=== PATIENT | male | born 1960 | race Two or more races ===

== ENCOUNTER 2024-09-17 07:59 | Emergency (ER) | payer MEDICAID, SELFPAY ==
[2024-09-17 08:00] VITALS: BP 148/83; PULSE 77; RESP 19; TEMP 36.4; O2SAT 99
--- NOTE | 2024-09-17 08:36 | EDNOTE_ITS ---
ED Seizures RME/HPI General Chief Complaint: Seizure Stated Complaint: SEIZURE Time Seen by Provider: 09/17/24 08:03 Arrival date/time: 09/17/24 07:59 Limitations: no limitations RME / HPI RME / HPI Narrative: 64 year old male with history of noncompliance with keppra, seizures presents to the ED BIBA for evaluation of seizure. Per medics, when they arrived on scene patient was postictal and confused. On arrival to ED patient has no complaints. Denies fevers, chills, chest pain, cough, shortness of breath, abdominal pain, n/v/d, or urinary symptoms. Related Data Previous Rx's ?Medication ?Instructions ?Recorded levetiracetam 500 mg tablet 500 mg PO BID #30 tabs 10/20/22 (Keppra) levetiracetam 500 mg tablet 500 mg PO BID #60 tabs 02/25/23 (Keppra) levetiracetam 500 mg tablet 500 mg PO BID #30 tabs 08/17/23 (Keppra) levetiracetam 500 mg tablet 500 mg PO BID #30 tabs 12/28/23 (Keppra) levetiracetam 500 mg tablet 500 mg PO TID #90 tabs 02/29/24 levetiracetam 500 mg tablet 500 mg PO BID #60 tabs 03/22/24 (Keppra) levetiracetam 500 mg tablet 500 mg PO BID #30 tabs 07/04/24 (Keppra) levetiracetam 500 mg tablet 500 mg PO BID #20 tabs 07/11/24 (Keppra) ibuprofen 600 mg tablet 600 mg PO Q6H PRN pain #30 tabs 07/19/24 levetiracetam 500 mg tablet 500 mg PO BID #60 tabs 09/17/24 (Keppra) Allergies Allergy/AdvReac Type Severity Reaction Status Date / Time No Known Allergies Allergy Verified 05/23/24 14:10 Review of Systems Review of Systems Systems Reviewed: All systems reviewed, normal except as documented Past Medical History Past Medical History NEUROLOGIC: Positive Neurological Disorders and Seizures CARDIAC: Positive Hypertension Family History FAMILY HISTORY: Positive Family Cardiac Disorders Surgical History SURGICAL: Positive Abdominal Surgery Social History SMOKING STATUS: Light (< 1 pack/day) SECOND HAND EXPOSURE: No SUBSTANCE USE: marijuana and methamphetamine (last used a couple of days ago ) ED Exam General Limitations: Present no limitations General appearance: Present alert and in no apparent distress Head Head exam: Present atraumatic, normocephalic and normal inspection Eye Eye exam: Present normal appearance, PERRL and EOMI ENT ENT exam: Present normal exam, normal oropharynx and mucous membranes moist Neck Neck exam: Present normal inspection, full ROM and trachea midline Chest Chest inspection: Present normal inspection and symmetric chest wall rise Respiratory Respiratory exam: Present normal lung sounds bilaterally Cardiovascular Cardiovascular exam: Present regular rate, normal rhythm and normal heart sounds Abdominal Exam Abdominal exam: Present soft and normal bowel sounds Extremities Exam Extremities exam: Present normal inspection and full ROM Back Exam Back exam: Present normal inspection and full ROM Neurological Exam Neurological exam: Present alert, oriented X3 and CN II-XII intact Psychiatric Psychiatric exam: Present normal affect and normal mood Skin Skin exam: Present warm, dry, intact and normal color Course Quality Measures none Orders Category Date Time Status Insert IV NOW Care 09/17/24 08:05 Active CBC Stat Lab 09/17/24 09:22 Completed CMP [Comprehensive Metabolic Panel] Stat Lab 09/17/24 09:22 Results Drug Screen,Urine Stat Lab 09/17/24 10:34 Completed levETIRAcetam INJ [Keppra Inj] Med 09/17/24 08:05 Discontinued 1,000 mg IVP X1 ONE Reevaluation(s) Reevaluation #1: Patient remains clinically stable throughout the emergency department visit. We reviewed all the results, analysis, and treatment plans. Patient is amenable to discharge. Strict return precautions were outlined. Patient was discharged in stable condition. Time: 11:25 Vital Signs Vital signs: Vital Signs Temperature 97.5 F 09/17/24 08:00 Pulse Rate 77 09/17/24 08:00 Respiratory Rate 19 09/17/24 08:00 Blood Pressure 148/83 H 09/17/24 08:00 Pulse Oximetry (%) 99 09/17/24 08:00 Oxygen Delivery Method Room Air 09/17/24 08:00 Pulse ox is 99% on room air which is adequate. Seizure MDM Narrative MDM Narrative:: Sirisha Cheek am scribing for and in the presence of Dr. Serrano. Patient data External records reviewed:: [facility] previous records (I reviewed ED visit on 07/19/2024) and EMS form Clinical information provided by:: patient and EMS Social determinants that could affect healthcare access:: housing (Homeless, meth use ) Patient has the following chronic illnesses:: Seizures, noncompliance with medications How is presenting disease/condition affected by chronic disease/condition?: exacerbated by Evaluation data The following diagnostics were reviewed and interpreted by me:: lab results Lab and/or radiology exams considered but not ordered:: None Interpretation Summary: Chronic transaminitis, AST/ALT 158/109 Medications / Prescriptions Medications or Prescriptions considered but not ordered:: None Medication administrations:: Medication Administration History Discontinued Medications Levetiracetam (Levetiracetam Inj 100 Mg/Ml Vial 5ml) 1,000 mg IVP X1 ONE Stop: 09/17/24 08:06 Last Admin: 09/17/24 08:56 Dose: 1,000 mg Documented By: See above Consultations Consultation(s) initiated? (list below): No Diagnosis Seizure Differential Diagnosis: intractable seizure disorder, focal seizure, generalized seizure and epileptic seizure Most likely diagnosis given after review of the tests above:: Seizure Admission Indicated Admission indicated?: not indicated Admission Request Was there a request for admission?: No Disposition Plan Disposition Plan: Discharge Discharge Attestation Discharge Attestation: The patient and all family members were given an opportunity to ask questions and understood the discharge instructions. Discharge instructions specifically effects, indications for sooner follow up or return to the emergency department, and the expected course of current diagnosis. Patient condition: Stable Discharge Plan Plan Patient Disposition: HOME (Self Care) Patient condition on transfer: Stable Prescriptions/Referrals Prescriptions/Med Rec: New levetiracetam [Keppra] 500 mg tablet 500 mg PO BID Qty: 60 0RF No Action levetiracetam [Keppra] 500 mg tablet 500 mg PO BID Qty: 30 0RF levetiracetam [Keppra] 500 mg tablet 500 mg PO BID Qty: 30 0RF levetiracetam [Keppra] 500 mg tablet 500 mg PO BID Qty: 60 0RF levetiracetam [Keppra] 500 mg tablet 500 mg PO BID Qty: 20 0RF ibuprofen 600 mg tablet 600 mg PO Q6H PRN (Reason: pain) Qty: 30 0RF levetiracetam [Keppra] 500 mg tablet 500 mg PO BID Qty: 30 0RF levetiracetam [Keppra] 500 mg tablet 500 mg PO BID Qty: 60 0RF levetiracetam 500 mg tablet 500 mg PO TID Qty: 90 0RF levetiracetam [Keppra] 500 mg tablet 500 mg PO BID Qty: 30 0RF Problem List Clinical Impression: Seizure Patient/Caregiver Discharge Instructions Print Language: Turkish Stand Alone Forms: Linda Award Info., Patient Portal Info Letter
[2024-09-17 08:48] VITALS: PULSE 74; RESP 14; O2SAT 96; BMI 19.3
[2024-09-17] MEDS: levETIRAcetam INJ 100 MG/ML VIAL 5ML 1000 MG IVP (08:56)
[2024-09-17 09:39] LABS: Basophils % (Auto) 1 % (0-2.5); Eosinophils % (Auto) 1 % (0-10); Hematocrit 38.7 % (41.0-53.0); Hemoglobin 13.4 g/dL (13.5-16.0); Immature Granulocytes % (Auto) 0 % (0-0); Immature Granulocytes Auto 0.02 Thou/mm3 (0.00-0.00); Lymphocytes # (Auto) 0.9 Thou/mm3 (1.0-4.8); Lymphocytes % (Auto) 19 % (10-50); Mean Corpuscular HGB Conc 34.6 g/dl (31.0-37.0); Mean Corpuscular Hemoglobin 33.7 pg (25.0-35.0); Mean Corpuscular Volume 97 fL (80-100); Monocytes # (Auto) 0.5 Thou/mm3 (0.0-0.8); Monocytes % (Auto) 10 % (0-12); Neutrophils # (Auto) 3.5 Thou/mm3 (1.8-7.7); Neutrophils % (Auto) 70 % (37-80); Nucleated Red Blood Cell % 0 /100 WBC (0); Platelet Count 162 Thou/mm3 (140-440); RDW Standard Deviation 45.6 fL (35.1-43.9); Red Blood Count 3.98 Miln/mm3 (4.50-5.90)
[2024-09-17 10:16] LABS: Alanine Aminotransferase 109 U/L (10-49); Albumin, Serum 3.6 gm/dL (3.4-4.8); Albumin/Globulin Ratio 0.9 (1.2-2.2); Alkaline Phosphatase 190 U/L (46-116); Anion Gap 4 (7-16); Aspartate Amino Transferase 158 U/L (0-34); BUN/Creatinine Ratio 25 Ratio (12-20); Blood Urea Nitrogen 15 mg/dL (9-23); Calcium 8.9 mg/dL (8.3-10.6); Calcium (Corrected) 9.2 mg/dL (8.5-10.1); Chloride 105 mMol/L (98-107); Creatinine (Component) 0.6 mg/dL (0.6-1.3); Estimated Creatinine Clearance 100.7 mL/min (>60); Globulin 4.1 gm/dL (2.3-3.5); Glucose 95 mg/dL (74-106); Osmolality,Calculated 272 (275-295); Potassium 3.9 mMol/L (3.4-5.1); Sodium 136 mMol/L (136-145); Total Protein 7.7 gm/dL (5.7-8.2); eGFR > 60 See Note
[2024-09-17 10:31] VITALS: BP 149/85; PULSE 60; RESP 17; TEMP 36.6; O2SAT 99
[2024-09-17 11:10] LABS: Amphetamine/Methamp Scrn,U Positive (Negative); Barbiturate Screen,Urine Negative (Negative); Benzodiazepines Screen,Urine Negative (Negative); THC Screen,Urine Positive (Negative)
[2024-09-17 11:11] LABS: Benzoylecgonine Screen, Ur Negative (Negative); Fentanyl Screen,Urine Negative (Negative); Opiate Screen,Urine Negative (Negative)
[2024-09-17 11:46] VITALS: BP 140/81; PULSE 69; RESP 14; TEMP 37; O2SAT 99
[2024-09-17 14:51] LABS: Bilirubin,Total 0.9 mg/dL (0.3-1.2)
== END 2024-09-17 11:56 | disposition home or self-care (01) ==
PROVIDERS: Emergency Provider Emergency Medicine
DX: R56.9 Unspecified convulsions (principal)
CPT/HCPCS: 36415; 80053; 80307; 85025; 96374; 99284; J1953

== ENCOUNTER 2024-09-22 15:00 | Emergency (ER) | payer MEDICAID, SELFPAY ==
--- NOTE | 2024-09-22 15:18 | PD.EDSEIZ ---
ED Seizures RME/HPI General Chief Complaint: Seizure Stated Complaint: SEIZURES Time Seen by Provider: 09/22/24 15:16 Arrival date/time: 09/22/24 15:00 This is a 64 year old male with history of seizures had a seizure prior to arrival. Patient was brought in by ambulance and on their arrival patient was postictal. Patient has a history of noncompliance with keppra. Per medics, when they arrived on scene patient was postictal and confused. On arrival to ED patient has no complaints. Denies fevers, chills, chest pain, cough, shortness of breath, abdominal pain, n/v/d, or urinary symptoms. Related Data Previous Rx's ?Medication ?Instructions ?Recorded levetiracetam 500 mg tablet 500 mg PO BID #30 tabs 10/20/22 (Keppra) levetiracetam 500 mg tablet 500 mg PO BID #60 tabs 02/25/23 (Keppra) levetiracetam 500 mg tablet 500 mg PO BID #30 tabs 08/17/23 (Keppra) levetiracetam 500 mg tablet 500 mg PO BID #30 tabs 12/28/23 (Keppra) levetiracetam 500 mg tablet 500 mg PO TID #90 tabs 02/29/24 levetiracetam 500 mg tablet 500 mg PO BID #60 tabs 03/22/24 (Keppra) levetiracetam 500 mg tablet 500 mg PO BID #30 tabs 07/04/24 (Keppra) levetiracetam 500 mg tablet 500 mg PO BID #20 tabs 07/11/24 (Keppra) ibuprofen 600 mg tablet 600 mg PO Q6H PRN pain #30 tabs 07/19/24 levetiracetam 500 mg tablet 500 mg PO BID #60 tabs 09/17/24 (Keppra) levetiracetam 500 mg tablet 500 mg PO BID #20 tabs 09/29/24 (Keppra) Allergies Allergy/AdvReac Type Severity Reaction Status Date / Time No Known Allergies Allergy Verified 05/23/24 14:10 Review of Systems Review of Systems Systems Reviewed: All systems reviewed, normal except as documented Past Medical History Past Medical History NEUROLOGIC: Positive Neurological Disorders and Seizures CARDIAC: Positive Hypertension; Negative Cardiac Disorders or Congestive Heart Failure RESPIRATORY: Negative Chronic Obstructive Pulmonary Disease (COPD) or Asthma GASTROINTESTINAL: Negative Gastrointestinal Disorders or Gastroesophageal Reflux Disease GENITOURINARY: Negative Genitourinary Disorders or Renal Disease MUSCULOSKELETAL: Negative Musculoskeletal Disorders ENDOCRINE: Negative Endocrine Disorders, Diabetes Mellitus Type 1 or Diabetes Mellitus Type 2 HEMATOLOGIC: Negative Blood Disorders PSYCHO/SOCIAL: Positive Recreational Drug Use; Negative Depression or Anxiety OTHER HISTORY: Negative Autoimmune Disease or Clostridium Difficile Family History FAMILY HISTORY: Positive Family Cardiac Disorders; Negative Family Psychiatric Problems, Family Respiratory Disorders, Family Gastrointestinal Problems, Family Cancer, Family Surgery or Family Anesthesia Reaction Surgical History SURGICAL: Positive Abdominal Surgery; Negative Cardiac Surgery, Endocrine Surgery, Ear Surgery, Nephrectomy, Neurologic Surgery or Mastectomy Social History SMOKING STATUS: Former smoker SECOND HAND EXPOSURE: No SUBSTANCE USE: marijuana and methamphetamine (last used a couple of days ago ) ED Exam General General appearance: Present alert and in no apparent distress Head Head exam: Present atraumatic Eye Eye exam: Present normal appearance, PERRL and EOMI ENT ENT exam: Present normal exam, normal oropharynx and mucous membranes moist Neck Neck exam: Present normal inspection, full ROM and trachea midline Chest Chest inspection: Present normal inspection and symmetric chest wall rise Respiratory Respiratory exam: Present normal lung sounds bilaterally Cardiovascular Cardiovascular exam: Present regular rate, normal rhythm and normal heart sounds Abdominal Exam Abdominal exam: Present soft Extremities Exam Extremities exam: Present normal inspection and full ROM Back Exam Back exam: Present normal inspection and full ROM Neurological Exam Neurological exam: Present alert and oriented X3 Psychiatric Psychiatric exam: Present normal affect and normal mood Skin Skin exam: Present warm, dry, intact and normal color Course Quality Measures none Orders Category Date Time Status CT head/brain wo con Stat Exams 09/22/24 15:21 Completed XR chest 1V Stat Exams 09/22/24 15:20 Completed CBC Stat Lab 09/22/24 15:29 Completed Comprehensive Metabolic Panel Stat Lab 09/22/24 15:29 Completed Drug Screen,Urine Stat Lab 09/22/24 17:18 Completed Urinalysis, C/S if Indicated Stat Lab 09/22/24 17:18 Completed levETIRAcetam INJ [Keppra Inj] Med 09/22/24 17:05 Discontinued 1,000 mg IVP X1 ONE Vital Signs Vital signs: Vital Signs Temperature 98.9 F 09/22/24 16:17 Pulse Rate 79 11/27/24 16:17 Respiratory Rate 18 09/22/24 16:17 Blood Pressure 139/69 H 09/22/24 16:17 Seizure MDM Narrative MDM Narrative:: This is a 64 year old male with history of seizures had a seizure prior to arrival. Patient was brought in by ambulance and on their arrival patient was postictal. Patient has a history of noncompliance with keppra. Per medics, when they arrived on scene patient was postictal and confused. On arrival to ED patient has no complaints. Denies fevers, chills, chest pain, cough, shortness of breath, abdominal pain, n/v/d, or urinary symptoms. Chest x ray: FINDINGS: Normal heart size No aspiration pneumonia Prominent osteopenia IMPRESSION: Negative for aspiration pneumonia Mild bronchitis pattern CT head: Findings: No significant ventricular enlargement. Intra-axial or extra-axial hemorrhage density is not seen. No mass effect or midline shift Basal cisterns are not remarkable. Fourth ventricle is midline. Cranial vault intact. Impression: Negative for acute hemorrhage, mass effect or midline shift Consider brain MRI follow-up, pre and postcontrast, seizure protocol CBC unremarkable, bmp unremarkable but lfts elevated but seem to be always elevated. Pt positive for amphetamines and marijuana Patient eating sandwich and feels comfortable being dc. Pt ambulated out of ED, steady gate. Gcs 15 Patient data External records reviewed:: [facility] previous records Clinical information provided by:: patient Social determinants that could affect healthcare access:: substance use Patient has the following chronic illnesses:: substance abuse How is presenting disease/condition affected by chronic disease/condition?: exacerbated by Evaluation data The following diagnostics were reviewed and interpreted by me:: lab results and radiology exam(s) Lab and/or radiology exams considered but not ordered:: none Interpretation Summary: see note Medications / Prescriptions Medications or Prescriptions considered but not ordered:: none Medication administrations:: Medication Administration History Discontinued Medications Levetiracetam (Levetiracetam Inj 100 Mg/Ml Vial 5ml) 1,000 mg IVP X1 ONE Stop: 09/22/24 17:06 Last Admin: 09/22/24 17:56 Dose: 1,000 mg Documented By: ARF see mar Consultations Consultation(s) initiated? (list below): No Diagnosis Seizure Differential Diagnosis: intractable seizure disorder, focal seizure and other (pneumonia, drug induced seizure, uti) Most likely diagnosis given after review of the tests above:: methanphetamine use Admission Indicated Admission indicated?: not indicated Admission Request Was there a request for admission?: No Disposition Plan Disposition Plan: Discharge Discharge Attestation Discharge Attestation: The patient and all family members were given an opportunity to ask questions and understood the discharge instructions. Discharge instructions specifically effects, indications for sooner follow up or return to the emergency department, and the expected course of current diagnosis. Patient condition: Stable Discharge Plan Plan Patient Disposition: HOME (Self Care) Patient condition on transfer: Stable Prescriptions/Referrals Prescriptions/Med Rec: No Action levetiracetam [Keppra] 500 mg tablet 500 mg PO BID Qty: 30 0RF levetiracetam [Keppra] 500 mg tablet 500 mg PO BID Qty: 30 0RF levetiracetam [Keppra] 500 mg tablet 500 mg PO BID Qty: 60 0RF levetiracetam [Keppra] 500 mg tablet 500 mg PO BID Qty: 20 0RF ibuprofen 600 mg tablet 600 mg PO Q6H PRN (Reason: pain) Qty: 30 0RF levetiracetam [Keppra] 500 mg tablet 500 mg PO BID Qty: 20 0RF levetiracetam [Keppra] 500 mg tablet 500 mg PO BID Qty: 30 0RF levetiracetam [Keppra] 500 mg tablet 500 mg PO BID Qty: 60 0RF levetiracetam 500 mg tablet 500 mg PO TID Qty: 90 0RF levetiracetam [Keppra] 500 mg tablet 500 mg PO BID Qty: 30 0RF levetiracetam [Keppra] 500 mg tablet 500 mg PO BID Qty: 60 0RF Referrals: No Primary/Family,Physician [Primary Care Provider] - In 1 week Problem List Clinical Impression: Seizure, Elevated liver enzymes, Amphetamine use Patient/Caregiver Discharge Instructions Discharge Activity: activity as tolerated Education Materials: Understanding Methamphetamine ..., ED Seizure, Recurrent (Adult) Additional Instructions: Please pick remover your seizure medications at the pharmacy. Come back to the emergency room if symptoms change or worsen. Follow-up with primary provider in 1-2 days Print Language: Albanian Stand Alone Forms: Linda Award Info., Patient Portal Info Letter PA/MEDICAL LANGUAGE SPECIALIST Supervising Physician PA/MEDICAL LANGUAGE SPECIALIST Supervising Physician: glenn
--- NOTE | 2024-09-22 15:20 | XR_ITS ---
Examination: AP chest single view Technique one AP portable upright chest single view Exam date and time: September 22, 2024 1536 hours Comparison 07/19/2024 INDICATIONS: Seizure today FINDINGS: Normal heart size No aspiration pneumonia Prominent osteopenia IMPRESSION: Negative for aspiration pneumonia Mild bronchitis pattern
--- NOTE | 2024-09-22 15:21 | XR_ITS ---
Examination: CT brain head without contrast. 2-D sagittal coronal reconstructions Date and time of exam:September 22, 2024 1543 hours INDICATIONS: Seizures today COMPARISON: May 23, 2024 CTDI: vol (mGy):45.3 DLP: (mGycm):929 Technique: Multiple CT axial sections of the brain have been obtained, 5 mm slice thickness. Contrast has not been administered. 2-D sagittal, coronal reconstructions have been obtained Low dose protocols were performed. One or more of the following dose reduction techniques were used; automated exposure control, adjustment of the mA and/or KV according to patient size, use of iterative reconstruction technique. Findings: No significant ventricular enlargement. Intra-axial or extra-axial hemorrhage density is not seen. No mass effect or midline shift Basal cisterns are not remarkable. Fourth ventricle is midline. Cranial vault intact. Impression: Negative for acute hemorrhage, mass effect or midline shift Consider brain MRI follow-up, pre and postcontrast, seizure protocol
[2024-09-22 16:16] LABS: Basophils % (Auto) 1 % (0-2.5); Eosinophils % (Auto) 1 % (0-10); Hematocrit 37.7 % (41.0-53.0); Hemoglobin 12.9 g/dL (13.5-16.0); Immature Granulocytes % (Auto) 0 % (0-0); Immature Granulocytes Auto 0.01 Thou/mm3 (0.00-0.00); Lymphocytes # (Auto) 1.4 Thou/mm3 (1.0-4.8); Lymphocytes % (Auto) 23 % (10-50); Mean Corpuscular HGB Conc 34.2 g/dl (31.0-37.0); Mean Corpuscular Hemoglobin 33.9 pg (25.0-35.0); Mean Corpuscular Volume 99 fL (80-100); Monocytes # (Auto) 0.5 Thou/mm3 (0.0-0.8); Monocytes % (Auto) 9 % (0-12); Neutrophils # (Auto) 3.8 Thou/mm3 (1.8-7.7); Neutrophils % (Auto) 66 % (37-80); Nucleated Red Blood Cell % 0 /100 WBC (0); Platelet Count 153 Thou/mm3 (140-440); RDW Standard Deviation 46.3 fL (35.1-43.9); Red Blood Count 3.81 Miln/mm3 (4.50-5.90); White Blood Count 5.8 Thou/mm3 (3.8-10.6)
[2024-09-22 16:17] VITALS: BP 139/69; PULSE 79; RESP 18; TEMP 37.2
[2024-09-22 16:37] LABS: Alanine Aminotransferase 109 U/L (10-49); Albumin, Serum 3.5 gm/dL (3.4-4.8); Albumin/Globulin Ratio 0.9 (1.2-2.2); Alkaline Phosphatase 207 U/L (46-116); Anion Gap 7 (7-16); Aspartate Amino Transferase 142 U/L (0-34); BUN/Creatinine Ratio 26 Ratio (12-20); Bilirubin,Total 0.4 mg/dL (0.3-1.2); Blood Urea Nitrogen 18 mg/dL (9-23); Calcium 8.6 mg/dL (8.3-10.6); Carbon Dioxide 23.6 mMol/L (20.0-31.0); Chloride 105 mMol/L (98-107); Creatinine (Component) 0.7 mg/dL (0.6-1.3); Globulin 4.1 gm/dL (2.3-3.5); Glucose 114 mg/dL (74-106); Osmolality,Calculated 274 (275-295); Potassium 4.2 mMol/L (3.4-5.1); Sodium 136 mMol/L (136-145); Total Protein 7.6 gm/dL (5.7-8.2); eGFR > 60 See Note
[2024-09-22 17:32] LABS: Collection Type, Urine Voided; Squamous Epithelial Cell,Urine 0 /hpf (0-5)
[2024-09-22] MEDS: levETIRAcetam INJ 100 MG/ML VIAL 5ML 1000 MG IVP (17:56)
[2024-09-22 18:00] VITALS: BP 127/76; PULSE 65; RESP 18; TEMP 37.2; O2SAT 98
[2024-09-22 18:14] LABS: Amphetamine/Methamp Scrn,U Positive (Negative); Barbiturate Screen,Urine Negative (Negative); Benzodiazepines Screen,Urine Negative (Negative); Benzoylecgonine Screen, Ur Negative (Negative); Fentanyl Screen,Urine Negative (Negative); Opiate Screen,Urine Negative (Negative); THC Screen,Urine Positive (Negative)
[2024-09-22 18:25] LABS: Bilirubin,Urine Negative (Negative); Blood,Urine Negative (Negative); Clarity,Urine Clear (Clear/Hazy); Color,Urine Yellow (Lt Yel-Yel); Culture Indicated,Urine Not Indicated; Glucose, Urine Negative (Negative); Ketones,Urine Negative (Negative); Leukocyte Esterase,Urine Negative (Negative); Nitrite,Urine Negative (Negative); Protein,Urine Trace (Neg - Trace); RBC,Urine 3 /hpf (0-3); Specific Gravity,Urine 1.026 (1.001-1.035); WBC,Urine 3 /hpf (0-5)
[2024-09-22 18:26] LABS: Sperm,Urine Present
== END 2024-09-22 18:34 | disposition home or self-care (01) ==
PROVIDERS: Nurse Practitioner Family; Emergency Provider Emergency Medicine
DX: R56.9 Unspecified convulsions (principal); F15.90 Other stimulant use, unspecified, uncomplicated; R74.8 Abnormal levels of other serum enzymes; I10 Essential (primary) hypertension; Z87.891 Personal history of nicotine dependence
CPT/HCPCS: 36415; 70450; 71045; 80053; 80307; 81001; 85025; 99284; J1953

== ENCOUNTER 2024-09-29 09:29 | Emergency (ER) | payer MEDICAID, SELFPAY ==
[2024-09-29 09:32] VITALS: PULSE 76; RESP 20; O2SAT 99; BMI 23.7
[2024-09-29 09:41] VITALS: BP 130/78; PULSE 77; RESP 18; TEMP 36.5; O2SAT 97
[2024-09-29 11:44] VITALS: BP 140/80; PULSE 65; RESP 15; TEMP 36.8; O2SAT 98
--- NOTE | 2024-09-29 11:53 | EDNOTE_ITS ---
ED General RME/HPI General Chief complaint: Seizure Stated complaint: SEIZURE Time Seen by Provider: 09/29/24 11:50 Arrival date/time: 09/29/24 09:29 CC: Seizure secondary to medication noncompliance HPI patient is well-known to us for chronic methamphetamine abuse and medication noncompliance for seizures patient is awake alert oriented states he is had no medicine in the last 90 days . Patient has multiple visits for the same complaint patient has no specific complaints of pain right now. Related Data Previous Rx's ?Medication ?Instructions ?Recorded levetiracetam 500 mg tablet 500 mg PO BID #30 tabs 10/20/22 (Keppra) levetiracetam 500 mg tablet 500 mg PO BID #60 tabs 02/25/23 (Keppra) levetiracetam 500 mg tablet 500 mg PO BID #30 tabs 08/17/23 (Keppra) levetiracetam 500 mg tablet 500 mg PO BID #30 tabs 12/28/23 (Keppra) levetiracetam 500 mg tablet 500 mg PO TID #90 tabs 02/29/24 levetiracetam 500 mg tablet 500 mg PO BID #60 tabs 03/22/24 (Keppra) levetiracetam 500 mg tablet 500 mg PO BID #30 tabs 07/04/24 (Keppra) levetiracetam 500 mg tablet 500 mg PO BID #20 tabs 07/11/24 (Keppra) ibuprofen 600 mg tablet 600 mg PO Q6H PRN pain #30 tabs 07/19/24 levetiracetam 500 mg tablet 500 mg PO BID #60 tabs 09/17/24 (Keppra) levetiracetam 500 mg tablet 500 mg PO BID #20 tabs 09/29/24 (Keppra) Allergies Allergy/AdvReac Type Severity Reaction Status Date / Time No Known Allergies Allergy Verified 05/23/24 14:10 Review of Systems Review of Systems Narrative Review of Systems: GEN: No fever, no chills, no weight loss EYES: No discharge, no visual changes, no pain HEENT: No ear pain, no congestion, no sore throat PULM: No shortness of breath, no cough, no congestion CV: No chest pain, no dyspnea on exertion, no palpitations GI: No nausea, no vomiting, no diarrhea, no pain, no constipation : No frequency, no urgency, no dysuria MUSC/SKEL: No joint pain, no back pain SKIN: No rash PSYCH: No hallucinations, no depression HEME/LYMPH: No easy bleeding or bruising tendencies NEURO: No weakness, no headache Past Medical History Past Medical History NEUROLOGIC: Positive Neurological Disorders and Seizures CARDIAC: Positive Hypertension; Negative Cardiac Disorders or Congestive Heart Failure RESPIRATORY: Negative Chronic Obstructive Pulmonary Disease (COPD) or Asthma GASTROINTESTINAL: Negative Gastrointestinal Disorders or Gastroesophageal Reflux Disease GENITOURINARY: Negative Genitourinary Disorders or Renal Disease MUSCULOSKELETAL: Negative Musculoskeletal Disorders ENDOCRINE: Negative Endocrine Disorders, Diabetes Mellitus Type 1 or Diabetes Mellitus Type 2 HEMATOLOGIC: Negative Blood Disorders PSYCHO/SOCIAL: Positive Recreational Drug Use; Negative Depression or Anxiety OTHER HISTORY: Negative Autoimmune Disease or Clostridium Difficile Family History FAMILY HISTORY: Positive Family Cardiac Disorders; Negative Family Psychiatric Problems, Family Respiratory Disorders, Family Gastrointestinal Problems, Family Cancer, Family Surgery or Family Anesthesia Reaction Surgical History SURGICAL: Positive Abdominal Surgery; Negative Cardiac Surgery, Endocrine Surgery, Ear Surgery, Nephrectomy, Neurologic Surgery or Mastectomy Social History SMOKING STATUS: Former smoker SECOND HAND EXPOSURE: No SUBSTANCE USE: marijuana and methamphetamine (last used a couple of days ago ) ED Exam Narrative Physical exam: [General: Ill kempt thin but not emaciated not in any acute distress Head normocephalic HEENT: Within acceptable limits Neck is supple nontender Chest equal chest rise nontender to palpation Respiratory: Clear to auscultation no wheezes crackles or rubs CV: Rate rhythm is regular no murmurs rubs or clicks Abdomen is flat, soft nontender no masses positive bowel sounds all 4 quadrants Back: No CVA tenderness no spinous process tenderness from cervical spine thoracic and lumbar spine Skin: Intact no petechiae rash induration ulceration or crepitus Extremities: Moving all extremity against resistance cap refill less than 2 seconds neurosensory intact no lower extremity edema Neuro: Awake alert oriented x3 Glascow coma 15 no focal deficits] Course Quality Measures none Orders Category Date Time Status CBC Stat Lab 09/29/24 12:22 Completed CMP [Comprehensive Metabolic Panel] Stat Lab 09/29/24 12:22 Completed Sodium Chloride 0.9% 1000 ml [Ns] 1,000 ml Med 09/29/24 11:53 Discontinued IV 999 mls/hr levETIRAcetam INJ [Keppra Inj] Med 09/29/24 11:52 Discontinued 1,000 mg IVP X1 ONE Vital Signs Vital signs: Vital Signs Temperature 97.7 F 09/29/24 09:41 Pulse Rate 77 09/29/24 09:41 Respiratory Rate 18 09/29/24 09:41 Blood Pressure 130/78 09/29/24 09:41 Pulse Oximetry (%) 97 09/29/24 09:41 Oxygen Delivery Method Room Air 09/29/24 09:41 [facility] Patient data External records reviewed:: [facility] previous records and EMS form Clinical information provided by:: patient and EMS Social determinants that could affect healthcare access:: none Patient has the following chronic illnesses:: Methamphetamine abuse seizure disorder How is presenting disease/condition affected by chronic disease/condition?: e xacerbated by Evaluation data The following diagnostics were reviewed and interpreted by me:: lab results Lab and/or radiology exams considered but not ordered:: CBC shows no leukocytosis there is a stable anemia, no thrombocytopenia CMP shows no acute electrolyte imbalances renal impairment there is transaminitis but no T. bili elevation. Interpretation Summary: Patient has had no seizures during his visit the emergency room Keppra was loaded patient was discharged home with a prescription for Keppra Medications Medications considered but not ordered:: None Medication administrations:: Medication Administration History Discontinued Medications Sodium Chloride (Ns) 1,000 mls @ 999 mls/hr IV .Q1H1M ONE Stop: 09/29/24 12:53 Last Infusion: 09/29/24 13:48 Dose: Infused Documented By: Admin: 09/29/24 12:24 Dose: 999 mls/hr Documented By: SALENA Levetiracetam (Levetiracetam Inj 100 Mg/Ml Vial 5ml) 1,000 mg IVP X1 ONE Stop: 09/29/24 11:53 Last Admin: 09/29/24 12:24 Dose: 1,000 mg Documented By: SALENA None Consultations Consultation(s) initiated? (list below): No Diagnosis Differential Diagnosis ED Complaint MDM: Status epilepticus pseudoseizure seizure Most likely diagnosis given after review of the tests above:: Seizure methamphetamine abuse Admission Indicated Admission indicated?: not indicated Explain why admission is indicated or not indicated:: Stable for discharge Admission Request Was there a request for admission?: No Disposition Plan Disposition Plan: Discharge Discharge Attestation Discharge Attestation: The patient and all family members were given an opportunity to ask questions and understood the discharge instructions. Discharge instructions specifically effects, indications for sooner follow up or return to the emergency department, and the expected course of current diagnosis. Patient condition: Stable Medical Decision Making Differential Diagnosis Differential Diagnosis: Status epilepticus pseudoseizure seizure Lab Data 09/29/24 12:22 09/29/24 12:22 Labs: Lab Results 09/29/24 Range/Units 12:22 WBC 6.0 (3.8-10.6) Thou/mm3 RBC 3.71 L (4.50-5.90) Miln/mm3 Hgb 12.5 L (13.5-16.0) g/dL Hct 35.9 L (41.0-53.0) % MCV 97 (80-100) fL MCH 33.7 (25.0-35.0) pg MCHC 34.8 (31.0-37.0) g/dl RDW Std Deviation 45.6 H (35.1-43.9) fL Plt Count 177 (140-440) Thou/mm3 Neut % (Auto) 73 (37-80) % Lymph % (Auto) 18 (10-50) % Castro % (Auto) 8 (0-12) % Eos % (Auto) 0 (0-10) % Baso % (Auto) 1 (0-2.5) % Neut # (Auto) 4.4 (1.8-7.7) Thou/mm3 Lymph # (Auto) 1.1 (1.0-4.8) Thou/mm3 Castro # (Auto) 0.5 (0.0-0.8) Thou/mm3 Eos # (Auto) 0.0 (0.0-0.5) Thou/mm3 Baso # (Auto) 0.0 (0.0-0.2) Thou/mm3 Immature Gran # (Auto) 0.02 H (0.00-0.00) Thou/mm3 Absolute Nucleated RBC 0.00 (0.00-0.00) Thou/mm3 Immature Gran % 0 (0-0) % Nucleated RBC % 0 (0) /100 WBC Sodium 138 (136-145) mMol/L Potassium 3.7 (3.4-5.1) mMol/L Chloride 107 (98-107) mMol/L Carbon Dioxide 26.6 (20.0-31.0) mMol/L Anion Gap 4 L (7-16) BUN 16 (9-23) mg/dL Creatinine 0.5 L (0.6-1.3) mg/dL Estim Creat Clear Calc 148.2 (>60) mL/min eGFR > 60 (60 - ) See Note BUN/Creatinine Ratio 32 H (12-20) Ratio Glucose 84 (74-106) mg/dL Calculated Osmolality 275 (275-295) Calcium 8.9 (8.3-10.6) mg/dL Corrected Calcium 9.5 (8.5-10.1) mg/dL Total Bilirubin 0.6 (0.3-1.2) mg/dL AST 100 H (0-34) U/L ALT 75 H (10-49) U/L Alkaline Phosphatase 188 H (46-116) U/L Total Protein 7.2 (5.7-8.2) gm/dL Albumin 3.2 L (3.4-4.8) gm/dL Globulin 4.0 H (2.3-3.5) gm/dL Albumin/Globulin Ratio 0.8 L (1.2-2.2) Discharge Plan Plan Patient Disposition: HOME (Self Care) Patient condition on transfer: Stable Prescriptions/Referrals Prescriptions/Med Rec: New levetiracetam [Keppra] 500 mg tablet 500 mg PO BID Qty: 20 0RF No Action levetiracetam [Keppra] 500 mg tablet 500 mg PO BID Qty: 30 0RF levetiracetam [Keppra] 500 mg tablet 500 mg PO BID Qty: 30 0RF levetiracetam [Keppra] 500 mg tablet 500 mg PO BID Qty: 60 0RF levetiracetam [Keppra] 500 mg tablet 500 mg PO BID Qty: 20 0RF ibuprofen 600 mg tablet 600 mg PO Q6H PRN (Reason: pain) Qty: 30 0RF levetiracetam [Keppra] 500 mg tablet 500 mg PO BID Qty: 30 0RF levetiracetam [Keppra] 500 mg tablet 500 mg PO BID Qty: 60 0RF levetiracetam 500 mg tablet 500 mg PO TID Qty: 90 0RF levetiracetam [Keppra] 500 mg tablet 500 mg PO BID Qty: 30 0RF levetiracetam [Keppra] 500 mg tablet 500 mg PO BID Qty: 60 0RF Referrals: Erik Alba MD [Physician] - In 1 week No Primary/Family,Physician [Primary Care Provider] - In 1 week Problem List Clinical Impression: Methamphetamine abuse, Seizure disorder Patient/Caregiver Discharge Instructions Education Materials: Understanding Methamphetamine ..., ED Seizure, Recurrent (Adult) Print Language: Jordanian Stand Alone Forms: Linda Award Info., Patient Portal Info Letter MD Attestation MD Attestation The patient was seen by the midlevel practitioner. I, the co-signing physician, was present during the entire ER visit. While I did not physically examine the patient, I was available for consultation as needed.
[2024-09-29] MEDS: SODIUM CHLORIDE 0.9% 1000 ML 1,000 ML 999 ML IV (12:24)
[2024-09-29] MEDS: levETIRAcetam INJ 100 MG/ML VIAL 5ML 1000 MG IVP (12:24)
[2024-09-29 12:48] LABS: Basophils % (Auto) 1 % (0-2.5); Eosinophils % (Auto) 0 % (0-10); Hematocrit 35.9 % (41.0-53.0); Hemoglobin 12.5 g/dL (13.5-16.0); Immature Granulocytes % (Auto) 0 % (0-0); Immature Granulocytes Auto 0.02 Thou/mm3 (0.00-0.00); Lymphocytes # (Auto) 1.1 Thou/mm3 (1.0-4.8); Lymphocytes % (Auto) 18 % (10-50); Mean Corpuscular HGB Conc 34.8 g/dl (31.0-37.0); Mean Corpuscular Hemoglobin 33.7 pg (25.0-35.0); Mean Corpuscular Volume 97 fL (80-100); Monocytes # (Auto) 0.5 Thou/mm3 (0.0-0.8); Monocytes % (Auto) 8 % (0-12); Neutrophils # (Auto) 4.4 Thou/mm3 (1.8-7.7); Neutrophils % (Auto) 73 % (37-80); Nucleated Red Blood Cell % 0 /100 WBC (0); Platelet Count 177 Thou/mm3 (140-440); RDW Standard Deviation 45.6 fL (35.1-43.9); Red Blood Count 3.71 Miln/mm3 (4.50-5.90)
[2024-09-29 13:06] LABS: Alanine Aminotransferase 75 U/L (10-49); Albumin, Serum 3.2 gm/dL (3.4-4.8); Albumin/Globulin Ratio 0.8 (1.2-2.2); Alkaline Phosphatase 188 U/L (46-116); Anion Gap 4 (7-16); Aspartate Amino Transferase 100 U/L (0-34); BUN/Creatinine Ratio 32 Ratio (12-20); Bilirubin,Total 0.6 mg/dL (0.3-1.2); Blood Urea Nitrogen 16 mg/dL (9-23); Calcium 8.9 mg/dL (8.3-10.6); Calcium (Corrected) 9.5 mg/dL (8.5-10.1); Carbon Dioxide 26.6 mMol/L (20.0-31.0); Chloride 107 mMol/L (98-107); Creatinine (Component) 0.5 mg/dL (0.6-1.3); Estimated Creatinine Clearance 148.2 mL/min (>60); Glucose 84 mg/dL (74-106); Osmolality,Calculated 275 (275-295); Potassium 3.7 mMol/L (3.4-5.1); Sodium 138 mMol/L (136-145); Total Protein 7.2 gm/dL (5.7-8.2); eGFR > 60 See Note
== END 2024-09-29 13:58 | disposition home or self-care (01) ==
PROVIDERS: Registered Nurse General Practice; Emergency Provider Emergency Medicine
DX: R56.9 Unspecified convulsions (principal); F15.10 Other stimulant abuse, uncomplicated; Z87.891 Personal history of nicotine dependence; Z91.148 Patient's other noncompliance with medication regimen for other reason
CPT/HCPCS: 36415; 80053; 85025; 96360; 99284; J1953; J7030

== ENCOUNTER 2024-11-21 10:46 | Emergency (ER) | payer MEDICAID, SELFPAY ==
[2024-11-21 10:52] VITALS: BP 136/78; PULSE 87; PULSE 93; RESP 19; TEMP 36.6; O2SAT 98; O2SAT 99; BMI 20.3
--- NOTE | 2024-11-21 10:52 | PC.NURSE ---
PT BIB EMS S/P SEIZURE PT IS NON COMPLIANT W/ MEDS
--- NOTE | 2024-11-21 10:55 | EDNOTE_ITS ---
ED General RME/HPI General Chief complaint: Seizure Stated complaint: SEIZURES Time Seen by Provider: 11/21/24 10:52 Arrival date/time: 11/21/24 10:46 RME / HPI RME / HPI narrative: DR. ALTAMIRANO MAIN ED EVALUATION: 64 year old male presents to the Emergency Department [facility] with complaint of a witnessed seizure prior to arrival. Per EMS, [place] an alley and a friend witnessed the seizure and when EMS arrived the patient was postictal. Patient forgot why he is here and does not remember. Patient also has some old stitches on his right face area, but unknown how long they have been there. PMHx: Seizures, noncompliant with medications. Social Hx: Methamphetamine and marijuana use. Related Data Previous Rx's ?Medication ?Instructions ?Recorded levetiracetam 500 mg tablet 500 mg PO BID #30 tabs 10/20/22 (Keppra) levetiracetam 500 mg tablet 500 mg PO BID #60 tabs 02/25/23 (Keppra) levetiracetam 500 mg tablet 500 mg PO BID #30 tabs 08/17/23 (Keppra) levetiracetam 500 mg tablet 500 mg PO BID #30 tabs 12/28/23 (Keppra) levetiracetam 500 mg tablet 500 mg PO TID #90 tabs 02/29/24 levetiracetam 500 mg tablet 500 mg PO BID #60 tabs 03/22/24 (Keppra) levetiracetam 500 mg tablet 500 mg PO BID #30 tabs 07/04/24 (Keppra) levetiracetam 500 mg tablet 500 mg PO BID #20 tabs 07/11/24 (Keppra) ibuprofen 600 mg tablet 600 mg PO Q6H PRN pain #30 tabs 07/19/24 levetiracetam 500 mg tablet 500 mg PO BID #60 tabs 09/17/24 (Keppra) levetiracetam 500 mg tablet 500 mg PO BID #20 tabs 09/29/24 (Keppra) Allergies Allergy/AdvReac Type Severity Reaction Status Date / Time No Known Allergies Allergy Verified 05/23/24 14:10 Review of Systems Review of Systems Systems Reviewed: All systems reviewed, normal except as documented Narrative Review of Systems: GEN: No fever, no chills, no weight loss EYES: No discharge, no visual changes, no pain HEENT: No ear pain, no congestion, no sore throat PULM: No shortness of breath, no cough, no congestion CV: No chest pain, no dyspnea on exertion, no palpitations GI: No nausea, no vomiting, no diarrhea, no pain, no constipation : No frequency, no urgency and no dysuria MUSC/SKEL: No joint pain, no back pain SKIN: No rash PSYCH: No hallucinations, no depression HEME/LYMPH: No easy bleeding or bruising tendencies NEURO: No weakness, no headache, + seizure (see HPI) Past Medical History Past Medical History NEUROLOGIC: Positive Neurological Disorders and Seizures CARDIAC: Positive Hypertension; Negative Cardiac Disorders or Congestive Heart Failure RESPIRATORY: Negative Chronic Obstructive Pulmonary Disease (COPD) or Asthma GASTROINTESTINAL: Negative Gastrointestinal Disorders or Gastroesophageal Reflux Disease GENITOURINARY: Negative Genitourinary Disorders or Renal Disease MUSCULOSKELETAL: Negative Musculoskeletal Disorders ENDOCRINE: Negative Endocrine Disorders, Diabetes Mellitus Type 1 or Diabetes Mellitus Type 2 HEMATOLOGIC: Negative Blood Disorders PSYCHO/SOCIAL: Positive Recreational Drug Use; Negative Depression or Anxiety OTHER HISTORY: Negative Autoimmune Disease or Clostridium Difficile Family History FAMILY HISTORY: Positive Family Cardiac Disorders; Negative Family Psychiatric Problems, Family Respiratory Disorders, Family Gastrointestinal Problems, Family Cancer, Family Surgery or Family Anesthesia Reaction Surgical History SURGICAL: Positive Abdominal Surgery; Negative Cardiac Surgery, Endocrine Surgery, Ear Surgery, Nephrectomy, Neurologic Surgery or Mastectomy Social History SMOKING STATUS: Current some day smoker SECOND HAND EXPOSURE: No SUBSTANCE USE: marijuana and methamphetamine (last used a couple of days ago ) ALCOHOL: Never ED Exam Narrative Physical exam: Physical Exam: General: The vital signs were reviewed. Patient does not know how he got here is smiling in no distress the patient is non-toxic, in no apparent distress and appears healthy with a patent airway, no respiratory distress and has no apparent circulatory problems. Head & Scalp: Normocephalic, atraumatic. Face: There are old Vicryl stitches lateral to the right orbit that been placed for an unknown duration. Appears normal and is without lesions, deformity. Ears: Left external pinna appears normal. Right external pinna appears normal. Eyes: The sclera is anicteric. No obvious photophobia. The Left and Right Orbit/Lid/Conjunctiva appears normal without swelling, discoloration or injection. Nose: The nose is without deformity, discharge or tenderness; Throat: Appears normal. The mucous membranes are pink and moist without exudates, redness or mass seen. The tongue appears normal. Neck: The neck is supple and no apparent mass or adenopathy. Chest: The chest wall is normal in size and symmetry and has no chest wall tenderness or crepitus. The patient displays normal ventilator effort without retractions, accessory muscle use and has adequate air movement bilaterally with no wheezes and no rales. Cardiovascular: Regular rate and rhythm; No murmurs, rubs, or gallops; Gastrointestinal: The abdomen appears normal. No obvious hernias or mass. The abdomen is soft and benign, non-distended, with no pain, no guarding and no rebound tenderness. Bowel sounds are present and normal sounding. No CVA tenderness. Genitourinary: Back/Spine: No complaint Extremities/Musculoskeletal/lymphatic: The bilateral upper and lower extremities are warm. There is no evidence of arterial insufficiency. There is no evidence of venous insufficiency/edema. The patient spontaneously moves bilateral upper and lower extremities with no pain and no limitation of movement. There is no apparent, injury or trauma. Skin: The skin is warm, dry and intact. No rashes. No petechia. No purpura. No abnormal bruising. The color is appropriate with no cyanosis. Mental status/Psychiatric: Mental status is appropriate for age. The patient has no apparent delusions, visual hallucinations, no apparent audible hallucinations. The patient has no apparent suicidal thoughts/ideation and no apparent homicidal thoughts/ideation. Neurological: The patient is awake, alert, interactive, cordial, cooperative and is oriented to name and situation. The patient follows commands and answers historical question with no impairment. There is no visual disturbance apparent. The pupils are equal and reactive bilaterally with normal eye movements and no diplopia The bilateral upper and lower extremities have normal strength, normal range of motion and normal functioning. The gait, station and balance appear to be baseline with no acute change Course Quality Measures none Orders Category Date Time Status Miscellaneous Nursing Order NOW Care 11/21/24 10:56 Active Miscellaneous Nursing Order NOW Care 11/21/24 10:[address] head/brain wo con Stat Exams 11/21/24 10:56 Completed Blood Culture (Lab) Stat Lab 11/21/24 11:37 Received CBC Stat Lab 11/21/24 11:32 Completed Comprehensive Metabolic Panel Stat Lab 11/21/24 11:32 Completed Drug Screen,Urine Stat Lab 11/21/24 12:46 Completed Lactate (Lactic Acid) Stat Lab 11/21/24 11:32 Completed Lactate (Lactic Acid) Stat Lab 11/21/24 15:27 Completed Troponin I Stat Lab 11/21/24 11:32 Completed Urinalysis, C/S if Indicated Stat Lab 11/21/24 12:46 Completed Venous Blood Gas Stat Lab 11/21/24 11:32 Completed levETIRAcetam INJ [Keppra Inj] Med 11/21/24 11:15 Discontinued 1,000 mg IV X1 ONE Vital Signs Vital signs: Vital Signs Temperature 97.8 F 11/21/24 10:52 Pulse Rate 93 11/21/24 10:52 Respiratory Rate 19 11/21/24 10:52 Blood Pressure 136/78 H 11/21/24 10:52 Pulse Oximetry (%) 99 11/21/24 10:52 Oxygen Delivery Method Room Air 11/21/24 10:52 Procedures -ED Procedure Comment Patient had a jagged laceration that is 2 weeks old on the right side of the face, had old stitches. It was irrigated extensively and extensive debridement. Old stitches removed. MDM Patient data External records reviewed:: [facility] previous records (Reviewed last ED visit dated 09/29/24, discharged with the following: Methamphetamine abuse) and EMS form Clinical information provided by:: patient and EMS Social determinants that could affect healthcare access:: substance use (Methamphetamine and marijuana use. ) Patient has the following chronic illnesses:: Seizures, noncompliant with medications. How is presenting disease/condition affected by chronic disease/condition?: c aused by Evaluation data The following diagnostics were reviewed and interpreted by me:: lab results and radiology exam(s) Lab and/or radiology exams considered but not ordered:: none Interpretation Summary: See above under MDM narrative. RADIOLOGY Procedure(s): CT head/brain wo con Accession Number(s): [id number] cc: Erik Alba MD; Rito Altamirano MD; Fermín Stone MD~ Examination: CT brain head without contrast. 2-D sagittal coronal reconstructions Date and time of exam:November 21, 2024 1106 hrs. Comparison September 22, 2024 Indications: Onset seizure this morning, history seizures CTDI: vol (mGy):46.7 DLP: (mGycm):903 Technique: Multiple CT axial sections of the brain have been obtained, 5 mm slice thickness. Contrast has not been administered. 2-D sagittal, coronal reconstructions have been obtained Low dose protocols were performed. One or more of the following dose reduction techniques were used; automated exposure control, adjustment of the mA and/or KV according to patient size, use of iterative reconstruction technique. Findings: No significant ventricular enlargement. Intra-axial or extra-axial hemorrhage density is not seen. No mass effect or midline shift Basal cisterns are not remarkable. Fourth ventricle is midline. Cranial vault intact. Significant chronic pansinusitis Impression: Negative for acute hemorrhage, mass effect or midline shift Recommend elective brain MRI follow-up, pre and postcontrast, seizure protocol Dictated By: Fermín Stone MD Medications Medications considered but not ordered:: none Medication administrations:: Medication Administration History Discontinued Medications Levetiracetam (Levetiracetam Inj 100 Mg/Ml Vial 5ml) 1,000 mg IV X1 ONE Stop: 11/21/24 11:16 Last Admin: 11/21/24 11:21 Dose: 1,000 mg Documented By: BD see above Consultations Consultation(s) initiated? (list below): No Diagnosis Differential Diagnosis ED Complaint MDM: seizure, medication noncomplaince, methamphetamine abuse Most likely diagnosis given after review of the tests above:: As noted below. Admission Indicated Admission indicated?: not indicated Explain why admission is indicated or not indicated:: Patient has no emergent abnormalities on his studies and can be managed on an outpatient basis. Admission Request Was there a request for admission?: No Disposition Plan Disposition Plan: Discharge Discharge Attestation Discharge Attestation: The patient and all family members were given an opportunity to ask questions and understood the discharge instructions. Discharge instructions specifically effects, indications for sooner follow up or return to the emergency department, and the expected course of current diagnosis. Patient condition: Stable Medical Decision Making MDM Narrative MDM Narrative: Patient is a 64-year-old known seizure disorder who had a witnessed seizure prior to EMS being called and brought her to our facility for evaluation initially was postictal he was confused did not know why he was here later he is acting his usual self. Medical workup was initiated which revealed a CT scan to be negative with no acute finding. CBC with a white count of 5.3 hemoglobin of 13.5 electrolytes were within normal limits pH was 7.45 pCO2 of 35. BUN 13 creatinine 0.7 glucose 84 lactic acid elevated 2.6 AST ALT slightly elevated 9769 urine was collected and was negative drug screens positive for methamphetamine and marijuana which was not an uncommon past finding when looking at the old charts. Patient also had a wound to his right lateral thigh with lots of eschar and scab that was gently debrided by myself after 10 minutes of debridement the sutures were all removed. There is some off step in the way the wound is healed. Patient was hungry ate and drink without any problems. He is currently sitting in his bed smiling has no complaints wants to go home and unfortunately a second lactic acid must be drawn just to make sure it is normalizing. That was ordered at 1455 hrs. and assuming negative patient will be able to go home. He has been encouraged to take his Keppra which has been prescribed multiple times and patient is aware that he is causing harm to self by not doing that also where the by using meth that he is also doing more harm to himself. He was encouraged to stop using drugs take his medications as prescribed and follow-up with his doctors. Note the last lactic acid is coming down consistent with hydration and food he has had no further seizure states he has medicines and will follow-up though he has a history of noncompliance with follow-up. Differential Diagnosis Differential Diagnosis: seizure, medication noncomplaince, methamphetamine abuse Lab Data 11/21/24 11:32 11/21/24 11:32 Labs: Lab Results 11/21/24 11/21/24 11/21/24 Range/Units 11:32 12:46 15:27 WBC 5.3 (3.8-10.6) Thou/mm3 RBC 3.98 L (4.50-5.90) Miln/mm3 Hgb 13.5 (13.5-16.0) g/dL Hct 38.5 L (41.0-53.0) % MCV 97 (80-100) fL MCH 33.9 (25.0-35.0) pg MCHC 35.1 (31.0-37.0) g/dl RDW Std Deviation 45.0 H (35.1-43.9) fL Plt Count 167 (140-440) Thou/mm3 Neut % (Auto) 62 (37-80) % Lymph % (Auto) 19 (10-50) % [place] % (Auto) 17 H (0-12) % Eos % (Auto) 0 (0-10) % Baso % (Auto) 1 (0-2.5) % Neut # (Auto) 3.3 (1.8-7.7) Thou/mm3 Lymph # (Auto) 1.0 (1.0-4.8) Thou/mm3 [place] # (Auto) 0.9 H (0.0-0.8) Thou/mm3 Eos # (Auto) 0.0 (0.0-0.5) Thou/mm3 Baso # (Auto) 0.0 (0.0-0.2) Thou/mm3 Immature Gran # (Auto) 0.02 H (0.00-0.00) Thou/mm3 Absolute Nucleated RBC 0.00 (0.00-0.00) Thou/mm3 Immature Gran % 0 (0-0) % Nucleated RBC % 0 (0) /100 WBC VBG pH 7.45 (7.33-7.66) VBG pCO2 35 L (36-56) mmHg VBG pO2 51 (15-58) mmHg VBG O2 Sat ([place]) 88 L (96-97) % VBG Base Excess 1 (-3-3) Sodium 138 (136-145) mMol/L Potassium 3.7 (3.4-5.1) mMol/L Chloride 105 (98-107) mMol/L Carbon Dioxide 25.8 (20.0-31.0) mMol/L Anion Gap 7 (7-16) BUN 13 (9-23) mg/dL Creatinine 0.7 (0.6-1.3) mg/dL Estim Creat Clear Calc 91.3 (>60) mL/min eGFR > 60 (60 - ) See Note BUN/Creatinine Ratio 19 (12-20) Ratio Glucose 84 (74-106) mg/dL Calculated Osmolality 274 L (275-295) Lactic Acid 2.6 H 1.4 (0.4-2.0) mMol/L Calcium 8.5 (8.3-10.6) mg/dL Corrected Calcium 8.7 (8.5-10.1) mg/dL Total Bilirubin 0.8 (0.3-1.2) mg/dL AST 97 H (0-34) U/L ALT 69 H (10-49) U/L Alkaline Phosphatase 178 H (46-116) U/L Troponin I < 0.020 (0.0-0.045) ng/mL Total Protein 7.9 (5.7-8.2) gm/dL Albumin 3.7 (3.4-4.8) gm/dL Globulin 4.2 H (2.3-3.5) gm/dL Albumin/Globulin Ratio 0.9 L (1.2-2.2) Ur Collection Type Catheter Urine Color Yellow (Lt Yel-Yel) Urine Clarity Hazy (Clear/Hazy) Urine pH 6.5 (5.0-7.0) Ur Specific [place] 1.020 (1.001-1.035) Urine Protein Trace (Neg - Trace) Urine Glucose (UA) Trace (Negative) Urine Ketones Negative (Negative) Urine Blood Negative (Negative) Urine Nitrite Negative (Negative) Urine Bilirubin Negative (Negative) Urine Urobilinogen (Auto) 2.0 (0.0-1.0) mg/dL Ur Leukocyte Esterase Negative (Negative) Urine RBC 1 (0-3) /hpf Urine WBC 2 (0-5) /hpf Ur Squamous Epith Cells 0 (0-5) /hpf Urine Bacteria Rare (None) Urine Sperm Present A (None) Ur Culture Indicated? Not Indicated Urine Opiates Screen Negative (Negative) Urine Fentanyl Screen Negative (Negative) Ur Barbiturates Screen Negative (Negative) U Amphetamin/Meth Scrn Positive A (Negative) U Benzodiazepines Scrn Negative (Negative) U Cocaine Metab Screen Negative (Negative) U Marijuana (THC) Screen Positive A (Negative) Discharge Plan Plan Patient Disposition: HOME (Self Care) Patient condition on transfer: Stable Prescriptions/Referrals Prescriptions/Med Rec: No Action levetiracetam [Keppra] 500 mg tablet 500 mg PO BID Qty: 30 0RF levetiracetam [Keppra] 500 mg tablet 500 mg PO BID Qty: 30 0RF levetiracetam [Keppra] 500 mg tablet 500 mg PO BID Qty: 60 0RF levetiracetam [Keppra] 500 mg tablet 500 mg PO BID Qty: 20 0RF ibuprofen 600 mg tablet 600 mg PO Q6H PRN (Reason: pain) Qty: 30 0RF levetiracetam [Keppra] 500 mg tablet 500 mg PO BID Qty: 20 0RF levetiracetam [Keppra] 500 mg tablet 500 mg PO BID Qty: 30 0RF levetiracetam [Keppra] 500 mg tablet 500 mg PO BID Qty: 60 0RF levetiracetam 500 mg tablet 500 mg PO TID Qty: 90 0RF levetiracetam [Keppra] 500 mg tablet 500 mg PO BID Qty: 30 0RF levetiracetam [Keppra] 500 mg tablet 500 mg PO BID Qty: 60 0RF Referrals: Erik Alba MD [Primary Care Provider] - In 1 week Problem List Clinical Impression: Generalized tonic-clonic seizure, Methamphetamine abuse, Noncompliance with medication regimen, Seizure disorder, Elevated lactic acid level Patient/Caregiver Discharge Instructions Education Materials: ED Drug Abuse Additional Instructions: Please take your Keppra as prescribed. Please follow-up with your clinic to keep all your refills current. Please stop spending money on methamphetamine and marijuana as this is not helpful to your health and will help you with being compliant with taking good care of yourself. Print Language: Citizen Of [place] Stand Alone Forms: Linda Award Info., Patient Portal Info Letter
[2024-11-21] MEDS: levETIRAcetam INJ 100 MG/ML VIAL 5ML 1000 MG IV (11:21)
--- NOTE | 2024-11-21 11:56 | PC.NURSE ---
PT REFUSED RECTAL TEMP
[2024-11-21 11:58] LABS: Base Excess, Venous 1 (-3-3); Lactate (Lactic Acid) 2.6 mMol/L (0.4-2.0); O2 Saturation, Venous 88 % (96-97); PCO2, Venous 35 mmHg (36-56); PO2, Venous 51 mmHg (15-58); pH, Venous 7.45 (7.33-7.66)
[2024-11-21 12:00] VITALS: BP 133/85; PULSE 71; RESP 19; TEMP 36.5; O2SAT 98
[2024-11-21 12:05] LABS: Basophils % (Auto) 1 % (0-2.5); Eosinophils % (Auto) 0 % (0-10); Hematocrit 38.5 % (41.0-53.0); Hemoglobin 13.5 g/dL (13.5-16.0); Immature Granulocytes % (Auto) 0 % (0-0); Immature Granulocytes Auto 0.02 Thou/mm3 (0.00-0.00); Lymphocytes % (Auto) 19 % (10-50); Mean Corpuscular HGB Conc 35.1 g/dl (31.0-37.0); Mean Corpuscular Hemoglobin 33.9 pg (25.0-35.0); Mean Corpuscular Volume 97 fL (80-100); Monocytes # (Auto) 0.9 Thou/mm3 (0.0-0.8); Monocytes % (Auto) 17 % (0-12); Neutrophils # (Auto) 3.3 Thou/mm3 (1.8-7.7); Neutrophils % (Auto) 62 % (37-80); Nucleated Red Blood Cell % 0 /100 WBC (0); Platelet Count 167 Thou/mm3 (140-440); Red Blood Count 3.98 Miln/mm3 (4.50-5.90); White Blood Count 5.3 Thou/mm3 (3.8-10.6)
[2024-11-21 12:26] LABS: Alanine Aminotransferase 69 U/L (10-49); Albumin, Serum 3.7 gm/dL (3.4-4.8); Albumin/Globulin Ratio 0.9 (1.2-2.2); Alkaline Phosphatase 178 U/L (46-116); Anion Gap 7 (7-16); Aspartate Amino Transferase 97 U/L (0-34); BUN/Creatinine Ratio 19 Ratio (12-20); Bilirubin,Total 0.8 mg/dL (0.3-1.2); Blood Urea Nitrogen 13 mg/dL (9-23); Calcium 8.5 mg/dL (8.3-10.6); Calcium (Corrected) 8.7 mg/dL (8.5-10.1); Carbon Dioxide 25.8 mMol/L (20.0-31.0); Chloride 105 mMol/L (98-107); Creatinine (Component) 0.7 mg/dL (0.6-1.3); Estimated Creatinine Clearance 91.3 mL/min (>60); Globulin 4.2 gm/dL (2.3-3.5); Glucose 84 mg/dL (74-106); Osmolality,Calculated 274 (275-295); Potassium 3.7 mMol/L (3.4-5.1); Sodium 138 mMol/L (136-145); Total Protein 7.9 gm/dL (5.7-8.2); Troponin I < 0.020 ng/mL (0.0-0.045); eGFR > 60 See Note
[2024-11-21 13:06] LABS: Collection Type, Urine Catheter; Squamous Epithelial Cell,Urine 0 /hpf (0-5)
[2024-11-21 13:32] LABS: Amphetamine/Methamp Scrn,U Positive (Negative); Barbiturate Screen,Urine Negative (Negative); Benzodiazepines Screen,Urine Negative (Negative); Benzoylecgonine Screen, Ur Negative (Negative); Fentanyl Screen,Urine Negative (Negative); Opiate Screen,Urine Negative (Negative); THC Screen,Urine Positive (Negative)
[2024-11-21 13:33] LABS: Bacteria,Urine Rare; Bilirubin,Urine Negative (Negative); Blood,Urine Negative (Negative); Clarity,Urine Hazy (Clear/Hazy); Color,Urine Yellow (Lt Yel-Yel); Culture Indicated,Urine Not Indicated; Glucose, Urine Trace (Negative); Ketones,Urine Negative (Negative); Leukocyte Esterase,Urine Negative (Negative); Nitrite,Urine Negative (Negative); PH,Urine 6.5 (5.0-7.0); Protein,Urine Trace (Neg - Trace); RBC,Urine 1 /hpf (0-3); Sperm,Urine Present; WBC,Urine 2 /hpf (0-5)
[2024-11-21 14:00] VITALS: BP 141/88; PULSE 74; RESP 18; O2SAT 98
[2024-11-21 14:57] LABS: Reflex Lactate? Y
[2024-11-21 15:50] LABS: Lactate (Lactic Acid) 1.4 mMol/L (0.4-2.0)
[2024-11-21 15:56] VITALS: BP 142/84; PULSE 63; RESP 16; TEMP 36.9; O2SAT 100
--- NOTE | 2024-11-21 16:30 | PC.NURSE ---
dr. maya has given pt food twice
== END 2024-11-21 16:38 | disposition home or self-care (01) ==
PROVIDERS: Emergency Provider Emergency Medicine; PCP Family Medicine
DX: G40.409 Other generalized epilepsy and epileptic syndromes, not intractable, without status epilepticus (principal); E87.20 Acidosis, unspecified; F15.10 Other stimulant abuse, uncomplicated; Z91.148 Patient's other noncompliance with medication regimen for other reason
CPT/HCPCS: 36415; 70450; 80053; 80307; 81001; 82803; 83605; 84484; 85025; 87040; 99284; J1953

== ENCOUNTER 2024-12-16 09:41 | Emergency (ER) | payer MEDICAID, SELFPAY ==
[2024-12-16 09:42] VITALS: BP 132/71; PULSE 82; RESP 16; TEMP 36.3; O2SAT 99
[2024-12-16 09:43] VITALS: BMI 23.5
[2024-12-16 10:00] VITALS: BP 136/76; PULSE 70; RESP 15; TEMP 36.5; O2SAT 100
--- NOTE | 2024-12-16 10:12 | PD.EDADULT ---
ED General RME/HPI General Chief complaint: Seizure Stated complaint: SEIZURES Time Seen by Provider: 12/16/24 10:06 Arrival date/time: 12/16/24 09:41 RME / HPI RME / HPI narrative: MIKHAIL HPI: 64-year-old male with a history of epilepsy, continued methamphetamine use, who presents to the emergency department with reported seizure. Patient does not recall events, he is back to his baseline, he does no complaints but does note a mild headache. He had run out of his Keppra approximately 2 days ago. Last methamphetamine use was also 2 days ago. Related Data Previous Rx's ?Medication ?Instructions ?Recorded levetiracetam 500 mg tablet 500 mg PO BID #30 tabs 10/20/22 (Keppra) levetiracetam 500 mg tablet 500 mg PO BID #60 tabs 02/25/23 (Keppra) levetiracetam 500 mg tablet 500 mg PO BID #30 tabs 08/17/23 (Keppra) levetiracetam 500 mg tablet 500 mg PO BID #30 tabs 12/28/23 (Keppra) levetiracetam 500 mg tablet 500 mg PO TID #90 tabs 02/29/24 levetiracetam 500 mg tablet 500 mg PO BID #60 tabs 03/22/24 (Keppra) levetiracetam 500 mg tablet 500 mg PO BID #30 tabs 07/04/24 (Keppra) levetiracetam 500 mg tablet 500 mg PO BID #20 tabs 07/11/24 (Keppra) ibuprofen 600 mg tablet 600 mg PO Q6H PRN pain #30 tabs 07/19/24 levetiracetam 500 mg tablet 500 mg PO BID #60 tabs 09/17/24 (Keppra) levetiracetam 500 mg tablet 500 mg PO BID #20 tabs 09/29/24 (Keppra) levetiracetam 500 mg tablet 500 mg PO BID #20 tabs 12/16/24 (Keppra) Allergies Allergy/AdvReac Type Severity Reaction Status Date / Time No Known Allergies Allergy Verified 12/16/24 09:51 Review of Systems Review of Systems Systems Reviewed: All systems reviewed, normal except as documented ED Exam Narrative Physical exam: GENERAL APPEARANCE: AxOx4, generally well-appearing, no acute distress. HEENT: Old right orbital rim, lateral eyebrow well-healed wound with some moderate scarring retracting the eyelid. MMM. EOMI, clear conjunctiva, oropharynx clear. NECK: Supple without lymphadenopathy. No stiffness or restricted ROM. HEART: Normal rate and regular rhythm, normal S1/S1, no m/r/g LUNGS: CTAB, moving air well. No crackles or wheezes are heard. ABDOMEN: Soft, nontender, nondistended with good bowel sounds heard. BACK: No midline C/T/L spine pain or deformity, No CVAT, no obvious deformity. EXTREMITIES: Without cyanosis, clubbing or edema. MUSCULOSKELETAL: FROM of all major joints, no chest tenderness NEUROLOGICAL: Grossly nonfocal. Alert and oriented, moving all 4 extremities. CN not formally tested but appear grossly intact. Observed to ambulate with normal gait. Skin: Warm and dry without any rash. Course Quality Measures none Orders Category Date Time Status levETIRAcetam INJ [Keppra Inj] Med 12/16/24 10:09 Discontinued 1,000 mg IVP X1 ONE Vital Signs Vital signs: Vital Signs Temperature 97.4 F 12/16/24 09:42 Pulse Rate 82 12/16/24 09:42 Respiratory Rate 16 12/16/24 09:42 Blood Pressure 132/71 H 12/16/24 09:42 Pulse Oximetry (%) 99 12/16/24 09:42 Oxygen Delivery Method Room Air 12/16/24 09:42 [facility] Patient data External records reviewed:: [facility] previous records (Several visits to the emergency department for breakthrough seizures with prescriptions often prescribed in the emergency department.) Clinical information provided by:: patient and EMS Social determinants that could affect healthcare access:: substance use Patient has the following chronic illnesses:: Epilepsy How is presenting disease/condition affected by chronic disease/condition?: caused by Evaluation data The following diagnostics were reviewed and interpreted by me:: other (specify) (Workup no indicated) Lab and/or radiology exams considered but not ordered:: As per narrative Interpretation Summary: Not applicable Medications Medications considered but not ordered:: None Medication administrations:: Medication Administration History Discontinued Medications Levetiracetam (Levetiracetam Inj 100 Mg/Ml Vial 5ml) 1,000 mg IVP X1 ONE Stop: 12/16/24 10:10 Last Admin: 12/16/24 10:31 Dose: 1,000 mg Documented By: VG Above Consultations Consultation(s) initiated? (list below): No Diagnosis Differential Diagnosis ED Complaint MDM: Epilepsy, status epilepticus, pseudoseizure Most likely diagnosis given after review of the tests above:: See below Admission Indicated Admission indicated?: not indicated Explain why admission is indicated or not indicated:: As per narrative Admission Request Was there a request for admission?: No Disposition Plan Disposition Plan: Discharge Discharge Attestation Discharge Attestation: The patient and all family members were given an opportunity to ask questions and understood the discharge instructions. Discharge instructions specifically effects, indications for sooner follow up or return to the emergency department, and the expected course of current diagnosis. Patient condition: Stable Medical Decision Making MDM Narrative MDM Narrative: Mr. Arango presents to the emergency department with seizure reported activities in the setting of noncompliance with his Keppra. On review of the electronic medical record this appears to be a frequent reason for visits to the emergency department where medication list shows several prescriptions of levetiracetam given via the emergency department. I discussed the importance of having a regular outpatient follow-up to ensure that he has regular prescriptions and refills. As he has been noncompliant with his levetiracetam and had a seizure today, he was loaded with 1 g here in the emergency department and monitored, without further seizures. He has a benign exam and a normal neurologic exam, therefore further workup is not indicated as this is a chronic recurrent issue. He was given a refill of his levetiracetam for approximately 10 days in order to follow-up with his primary care doctor and establish regular prescriptions. I have discussed the dangers of continued methamphetamine use especially in the setting of him not being compliant with his seizure medicines. We have spent time trying to establish priorities that would benefit his health. Differential Diagnosis Differential Diagnosis: Epilepsy, status epilepticus, pseudoseizure Discharge Plan Plan Patient Disposition: HOME (Self Care) Prescriptions/Referrals Prescriptions/Med Rec: New levetiracetam [Keppra] 500 mg tablet 500 mg PO BID Qty: 20 0RF No Action levetiracetam [Keppra] 500 mg tablet 500 mg PO BID Qty: 30 0RF levetiracetam [Keppra] 500 mg tablet 500 mg PO BID Qty: 30 0RF levetiracetam [Keppra] 500 mg tablet 500 mg PO BID Qty: 60 0RF levetiracetam [Keppra] 500 mg tablet 500 mg PO BID Qty: 20 0RF ibuprofen 600 mg tablet 600 mg PO Q6H PRN (Reason: pain) Qty: 30 0RF levetiracetam [Keppra] 500 mg tablet 500 mg PO BID Qty: 20 0RF levetiracetam [Keppra] 500 mg tablet 500 mg PO BID Qty: 30 0RF levetiracetam [Keppra] 500 mg tablet 500 mg PO BID Qty: 60 0RF levetiracetam 500 mg tablet 500 mg PO TID Qty: 90 0RF levetiracetam [Keppra] 500 mg tablet 500 mg PO BID Qty: 30 0RF levetiracetam [Keppra] 500 mg tablet 500 mg PO BID Qty: 60 0RF Problem List Clinical Impression: Recurrent seizures, Methamphetamine abuse, Noncompliance with medication regimen Patient/Caregiver Discharge Instructions Education Materials: ED Drug Abuse, ED Seizure, Recurrent (Adult) Additional Instructions: Stop using illicit drugs. You can follow-up with your primary care doctor and or [facility] if you feel ready for drug and/or alcohol rehabilitation. Follow-up with your primary care doctor in 7 days for reevaluation and establishment of your outpatient prescriptions. you have been sent 10 days of your antiseizure medicines for until then. You can return to the emergency department sooner symptoms worsen or if he notes any new, concerning issues. Print Language: Divehi Stand Alone Forms: Linda Award Info., Patient Portal Info Letter
[2024-12-16] MEDS: levETIRAcetam INJ 100 MG/ML VIAL 5ML 1000 MG IVP (10:31)
[2024-12-16 11:36] VITALS: BP 135/70; PULSE 76; RESP 16; TEMP 36.6; O2SAT 100
== END 2024-12-16 11:36 | disposition home or self-care (01) ==
LOC: SERX 11:44
PROVIDERS: Emergency Provider Emergency Medicine; PCP Family Medicine
DX: G40.909 Epilepsy, unspecified, not intractable, without status epilepticus (principal); F15.10 Other stimulant abuse, uncomplicated; Z91.148 Patient's other noncompliance with medication regimen for other reason
CPT/HCPCS: 96374; 99284; J1953

== ENCOUNTER 2024-12-20 12:04 | Emergency (ER) | payer MEDICAID, SELFPAY ==
--- NOTE | 2024-12-20 12:23 | PD.EDADULT ---
ED General RME/HPI General Chief complaint: Seizure Stated complaint: SIEZURE Time Seen by Provider: 12/20/24 12:22 Arrival date/time: 12/20/24 12:04 CC: Seizure with seizure disorder HPI patient presents the ER via EMS with stable vital signs. Patient is well-known to me for multiple seizures secondary to medication noncompliance patient is homeless. Patient states he does have the medications. EMS report the patient was holding the medication bottle in his hand at the time of the seizure. Patient is currently awake alert oriented stating he has not had a seizure in a while . Patient is known for methamphetamine abuse. Patient denies any other symptoms including chest pain shortness of breath or difficulty breathing. Patient admits to methamphetamine use this morning. Related Data Previous Rx's ?Medication ?Instructions ?Recorded levetiracetam 500 mg tablet 500 mg PO BID #30 tabs 10/20/22 (Keppra) levetiracetam 500 mg tablet 500 mg PO BID #60 tabs 02/25/23 (Keppra) levetiracetam 500 mg tablet 500 mg PO BID #30 tabs 08/17/23 (Keppra) levetiracetam 500 mg tablet 500 mg PO BID #30 tabs 12/28/23 (Keppra) levetiracetam 500 mg tablet 500 mg PO TID #90 tabs 02/29/24 levetiracetam 500 mg tablet 500 mg PO BID #60 tabs 03/22/24 (Keppra) levetiracetam 500 mg tablet 500 mg PO BID #30 tabs 07/04/24 (Keppra) levetiracetam 500 mg tablet 500 mg PO BID #20 tabs 07/11/24 (Keppra) ibuprofen 600 mg tablet 600 mg PO Q6H PRN pain #30 tabs 07/19/24 levetiracetam 500 mg tablet 500 mg PO BID #60 tabs 09/17/24 (Keppra) levetiracetam 500 mg tablet 500 mg PO BID #20 tabs 09/29/24 (Keppra) levetiracetam 500 mg tablet 500 mg PO BID #20 tabs 12/16/24 (Keppra) Allergies Allergy/AdvReac Type Severity Reaction Status Date / Time No Known Allergies Allergy Verified 12/20/24 13:00 Review of Systems Review of Systems Narrative Review of Systems: GEN: No fever, no chills, no weight loss EYES: No discharge, no visual changes, no pain HEENT: No ear pain, no congestion, no sore throat PULM: No shortness of breath, no cough, no congestion CV: No chest pain, no dyspnea on exertion, no palpitations GI: No nausea, no vomiting, no diarrhea, no pain, no constipation : No frequency, no urgency, no dysuria MUSC/SKEL: No joint pain, no back pain SKIN: No rash PSYCH: No hallucinations, no depression HEME/LYMPH: No easy bleeding or bruising tendencies NEURO: No weakness, no headache Past Medical History Past Medical History NEUROLOGIC: Positive Neurological Disorders and Seizures CARDIAC: Positive Hypertension; Negative Cardiac Disorders or Congestive Heart Failure RESPIRATORY: Negative Chronic Obstructive Pulmonary Disease (COPD) or Asthma GASTROINTESTINAL: Negative Gastrointestinal Disorders or Gastroesophageal Reflux Disease GENITOURINARY: Negative Genitourinary Disorders or Renal Disease MUSCULOSKELETAL: Negative Musculoskeletal Disorders ENDOCRINE: Negative Endocrine Disorders, Diabetes Mellitus Type 1 or Diabetes Mellitus Type 2 HEMATOLOGIC: Negative Blood Disorders PSYCHO/SOCIAL: Positive Recreational Drug Use; Negative Depression or Anxiety OTHER HISTORY: Negative Autoimmune Disease or Clostridium Difficile Family History FAMILY HISTORY: Positive Family Cardiac Disorders; Negative Family Psychiatric Problems, Family Respiratory Disorders, Family Gastrointestinal Problems, Family Cancer, Family Surgery or Family Anesthesia Reaction Surgical History SURGICAL: Positive Abdominal Surgery; Negative Cardiac Surgery, Endocrine Surgery, Ear Surgery, Nephrectomy, Neurologic Surgery or Mastectomy Social History SMOKING STATUS: Never smoker SECOND HAND EXPOSURE: No SUBSTANCE USE: marijuana and methamphetamine (last used a couple of days ago ) ED Exam Narrative Physical exam: [General: Not in any acute distress Head normocephalic HEENT: Within acceptable limits Neck is supple nontender Chest equal chest rise nontender to palpation Respiratory: Clear to auscultation no wheezes crackles or rubs CV: Rate rhythm is regular no murmurs rubs or clicks Abdomen is flat, soft nontender no masses positive bowel sounds all 4 quadrants Back: No CVA tenderness no spinous process tenderness from cervical spine thoracic and lumbar spine Skin: Intact no petechiae rash induration ulceration or crepitus Extremities: Moving all extremity against resistance cap refill less than 2 seconds neurosensory intact Neuro: Awake alert oriented x3 Glascow coma 15 no focal deficits] Course Quality Measures none Orders Category Date Time Status CBC Stat Lab 12/20/24 12:50 Completed CMP [Comprehensive Metabolic Panel] Stat Lab 12/20/24 12:50 Completed Creatine Kinase Stat Lab 12/20/24 12:50 Completed Drug Screen,Urine Stat Lab 12/20/24 12:26 Ordered levETIRAcetam INJ [Keppra Inj] Med 12/20/24 12:22 Discontinued 1,000 mg IVP X1 ONE Vital Signs Vital signs: Vital Signs Temperature 98.1 F 12/20/24 12:37 Pulse Rate 83 12/20/24 12:37 Respiratory Rate 16 12/20/24 12:37 Blood Pressure 112/64 12/20/24 12:37 Pulse Oximetry (%) 97 12/20/24 12:37 Oxygen Delivery Method Room Air 12/20/24 12:37 [facility] Patient data External records reviewed:: [facility] previous records and EMS form Clinical information provided by:: patient and EMS Social determinants that could affect healthcare access:: none Patient has the following chronic illnesses:: Seizure disorder methamphetamine abuse How is presenting disease/condition affected by chronic disease/condition?: exacerbated by Evaluation data The following diagnostics were reviewed and interpreted by me:: lab results Lab and/or radiology exams considered but not ordered:: CBC shows no acute leukocytosis anemia thrombocytopenia CMP shows no acute electrolyte imbalances renal impairment. Mild transaminitis with a T. bili that is normal. Creatinine kinase at 109. Interpretation Summary: Patient has had no deterioration neurologic status or seizures since admission to the hospital. Patient will be discharged home. Medications Medications considered but not ordered:: None Medication administrations:: Medication Administration History Discontinued Medications Levetiracetam (Levetiracetam Inj 100 Mg/Ml Vial 5ml) 1,000 mg IVP X1 ONE Stop: 12/20/24 12:23 Last Admin: 12/20/24 12:47 Dose: 1,000 mg Documented By: ED None Consultations Consultation(s) initiated? (list below): No Diagnosis Differential Diagnosis ED Complaint MDM: Pseudoseizures seizures status epilepticus Most likely diagnosis given after review of the tests above:: Recurrent seizures Admission Indicated Admission indicated?: not indicated Explain why admission is indicated or not indicated:: Stable for outpatient follow-up Admission Request Was there a request for admission?: No Disposition Plan Disposition Plan: Discharge Discharge Attestation Discharge Attestation: The patient and all family members were given an opportunity to ask questions and understood the discharge instructions. Discharge instructions specifically effects, indications for sooner follow up or return to the emergency department, and the expected course of current diagnosis. Patient condition: Stable Medical Decision Making Differential Diagnosis Differential Diagnosis: Pseudoseizures seizures status epilepticus Lab Data 12/20/24 12:50 12/20/24 12:50 Labs: Lab Results 12/20/24 Range/Units 12:50 WBC 5.6 (3.8-10.6) Thou/mm3 RBC 3.49 L (4.50-5.90) Miln/mm3 Hgb 11.3 L (13.5-16.0) g/dL Hct 33.4 L (41.0-53.0) % MCV 96 (80-100) fL MCH 32.4 (25.0-35.0) pg MCHC 33.8 (31.0-37.0) g/dl RDW Std Deviation 45.8 H (35.1-43.9) fL Plt Count 153 (140-440) Thou/mm3 Neut % (Auto) 69 (37-80) % Lymph % (Auto) 18 (10-50) % [place] % (Auto) 12 (0-12) % Eos % (Auto) 1 (0-10) % Baso % (Auto) 0 (0-2.5) % Neut # (Auto) 3.9 (1.8-7.7) Thou/mm3 Lymph # (Auto) 1.0 (1.0-4.8) Thou/mm3 [place] # (Auto) 0.7 (0.0-0.8) Thou/mm3 Eos # (Auto) 0.0 (0.0-0.5) Thou/mm3 Baso # (Auto) 0.0 (0.0-0.2) Thou/mm3 Immature Gran # (Auto) 0.01 H (0.00-0.00) Thou/mm3 Absolute Nucleated RBC 0.00 (0.00-0.00) Thou/mm3 Immature Gran % 0 (0-0) % Nucleated RBC % 0 (0) /100 WBC Sodium 139 (136-145) mMol/L Potassium 3.9 (3.4-5.1) mMol/L Chloride 106 (98-107) mMol/L Carbon Dioxide 28.0 (20.0-31.0) mMol/L Anion Gap 5 L (7-16) BUN 14 (9-23) mg/dL Creatinine 0.6 (0.6-1.3) mg/dL Estim Creat Clear Calc 118.8 (>60) mL/min eGFR > 60 (60 - ) See Note BUN/Creatinine Ratio 23 H (12-20) Ratio Glucose 113 H (74-106) mg/dL Calculated Osmolality 279 (275-295) Calcium 8.0 L (8.3-10.6) mg/dL Corrected Calcium 8.8 (8.5-10.1) mg/dL Total Bilirubin 0.6 (0.3-1.2) mg/dL AST 75 H (0-34) U/L ALT 56 H (10-49) U/L Alkaline Phosphatase 191 H (46-116) U/L Total Creatine Kinase 109 (34-171) U/L Total Protein 6.6 (5.7-8.2) gm/dL Albumin 3.0 L (3.4-4.8) gm/dL Globulin 3.6 H (2.3-3.5) gm/dL Albumin/Globulin Ratio 0.8 L (1.2-2.2) Discharge Plan Plan Patient Disposition: HOME (Self Care) Patient condition on transfer: Stable Prescriptions/Referrals Prescriptions/Med Rec: No Action levetiracetam [Keppra] 500 mg tablet 500 mg PO BID Qty: 30 0RF levetiracetam [Keppra] 500 mg tablet 500 mg PO BID Qty: 30 0RF levetiracetam [Keppra] 500 mg tablet 500 mg PO BID Qty: 60 0RF levetiracetam [Keppra] 500 mg tablet 500 mg PO BID Qty: 20 0RF ibuprofen 600 mg tablet 600 mg PO Q6H PRN (Reason: pain) Qty: 30 0RF levetiracetam [Keppra] 500 mg tablet 500 mg PO BID Qty: 20 0RF levetiracetam [Keppra] 500 mg tablet 500 mg PO BID Qty: 20 0RF levetiracetam [Keppra] 500 mg tablet 500 mg PO BID Qty: 30 0RF levetiracetam [Keppra] 500 mg tablet 500 mg PO BID Qty: 60 0RF levetiracetam 500 mg tablet 500 mg PO TID Qty: 90 0RF levetiracetam [Keppra] 500 mg tablet 500 mg PO BID Qty: 30 0RF levetiracetam [Keppra] 500 mg tablet 500 mg PO BID Qty: 60 0RF Referrals: Erik Alba MD [Physician] - In 1 week Problem List Clinical Impression: Recurrent seizures Patient/Caregiver Discharge Instructions Other Activity Instructions:: Take your medication as prescribed. Stop using methamphetamines Education Materials: ED Seizure, Recurrent (Adult) Print Language: Pashto Stand Alone Forms: Linda Award Info., Patient Portal Info Letter PA/LAUNDRY LABORER Supervising Physician PA/LAUNDRY LABORER Supervising Physician: Sathish Barraza ENP
[2024-12-20 12:30] VITALS: PULSE 92; RESP 16; O2SAT 97; BMI 22.7
--- NOTE | 2024-12-20 12:31 | PC.NURSE ---
Pt. here from home to room 2, pt. laying in bed, pt. states he feels better now, per pt.'s friends he had a seizure this morning that lasted 3 minutes. Pt. states he smoked meth this morning. Pt. has his seizure meds with him.
[2024-12-20 12:37] VITALS: BP 112/64; PULSE 83; RESP 16; TEMP 36.7; O2SAT 97
--- NOTE | 2024-12-20 12:40 | PC.NURSE ---
Sathish FOOT CUTTER bedside talking with pt., pt. states he used meth this morning.
[2024-12-20] MEDS: levETIRAcetam INJ 100 MG/ML VIAL 5ML 1000 MG IVP (12:47)
[2024-12-20 13:01] LABS: Basophils % (Auto) 0 % (0-2.5); Eosinophils % (Auto) 1 % (0-10); Hematocrit 33.4 % (41.0-53.0); Hemoglobin 11.3 g/dL (13.5-16.0); Immature Granulocytes % (Auto) 0 % (0-0); Immature Granulocytes Auto 0.01 Thou/mm3 (0.00-0.00); Lymphocytes % (Auto) 18 % (10-50); Mean Corpuscular HGB Conc 33.8 g/dl (31.0-37.0); Mean Corpuscular Hemoglobin 32.4 pg (25.0-35.0); Mean Corpuscular Volume 96 fL (80-100); Monocytes # (Auto) 0.7 Thou/mm3 (0.0-0.8); Monocytes % (Auto) 12 % (0-12); Neutrophils # (Auto) 3.9 Thou/mm3 (1.8-7.7); Neutrophils % (Auto) 69 % (37-80); Nucleated Red Blood Cell % 0 /100 WBC (0); Platelet Count 153 Thou/mm3 (140-440); RDW Standard Deviation 45.8 fL (35.1-43.9); Red Blood Count 3.49 Miln/mm3 (4.50-5.90); White Blood Count 5.6 Thou/mm3 (3.8-10.6)
[2024-12-20 13:20] LABS: Alanine Aminotransferase 56 U/L (10-49); Albumin/Globulin Ratio 0.8 (1.2-2.2); Alkaline Phosphatase 191 U/L (46-116); Anion Gap 5 (7-16); Aspartate Amino Transferase 75 U/L (0-34); BUN/Creatinine Ratio 23 Ratio (12-20); Bilirubin,Total 0.6 mg/dL (0.3-1.2); Blood Urea Nitrogen 14 mg/dL (9-23); Calcium (Corrected) 8.8 mg/dL (8.5-10.1); Chloride 106 mMol/L (98-107); Creatine Kinase 109 U/L (34-171); Creatinine (Component) 0.6 mg/dL (0.6-1.3); Estimated Creatinine Clearance 118.8 mL/min (>60); Globulin 3.6 gm/dL (2.3-3.5); Glucose 113 mg/dL (74-106); Osmolality,Calculated 279 (275-295); Potassium 3.9 mMol/L (3.4-5.1); Sodium 139 mMol/L (136-145); Total Protein 6.6 gm/dL (5.7-8.2); eGFR > 60 See Note
[2024-12-20 15:15] VITALS: BP 128/75; PULSE 73; RESP 17; O2SAT 93
[2024-12-20 16:17] VITALS: BP 120/77; PULSE 67; RESP 16; TEMP 36.7; O2SAT 99
== END 2024-12-20 16:16 | disposition home or self-care (01) ==
LOC: SERX 14:29
PROVIDERS: Registered Nurse General Practice; Emergency Provider Emergency Medicine
DX: R56.9 Unspecified convulsions (principal); Z59.00 Homelessness unspecified
CPT/HCPCS: 36415; 80053; 80307; 82550; 85025; 93005; 99284; J1953

== ENCOUNTER 2024-12-27 21:55 | Emergency (ER) | payer MEDICAID, SELFPAY ==
[2024-12-27 22:06] VITALS: BMI 18.8
[2024-12-27 22:07] VITALS: BP 152/87; PULSE 78; RESP 18; TEMP 36.6; O2SAT 98
--- NOTE | 2024-12-27 22:13 | PD.EDADULT ---
ED General RME/HPI General Chief complaint: Extremity Injury, Upper Stated complaint: SIEZURE Time Seen by Provider: 12/27/24 21:59 Arrival date/time: 12/27/24 21:55 RME / HPI RME / HPI narrative: Dr. Tellez?s Main ED Evaluation: 64yo male with a history of seizures TED presents to the ED for a chief complaint of a seizure. Per EMS, bystanders at [facility] witnessed the patient having a seizure that lasted 30 seconds, reporting the patient fell and hit the left side of his face. Patient does not know when his last seizure was, reporting he last took his seizure medication 1 week ago. He reports associated left shoulder pain. He denies any neck pain, visual changes or any other associated symptoms. Patient is a former drinker. Tdap is UTD. No known allergies. Related Data Previous Rx's ?Medication ?Instructions ?Recorded levetiracetam 500 mg tablet 500 mg PO BID #30 tabs 10/20/22 (Keppra) levetiracetam 500 mg tablet 500 mg PO BID #60 tabs 02/25/23 (Keppra) levetiracetam 500 mg tablet 500 mg PO BID #30 tabs 08/17/23 (Keppra) levetiracetam 500 mg tablet 500 mg PO BID #30 tabs 12/28/23 (Keppra) levetiracetam 500 mg tablet 500 mg PO TID #90 tabs 02/29/24 levetiracetam 500 mg tablet 500 mg PO BID #60 tabs 03/22/24 (Keppra) levetiracetam 500 mg tablet 500 mg PO BID #30 tabs 07/04/24 (Keppra) levetiracetam 500 mg tablet 500 mg PO BID #20 tabs 07/11/24 (Keppra) ibuprofen 600 mg tablet 600 mg PO Q6H PRN pain #30 tabs 07/19/24 levetiracetam 500 mg tablet 500 mg PO BID #60 tabs 09/17/24 (Keppra) levetiracetam 500 mg tablet 500 mg PO BID #20 tabs 09/29/24 (Keppra) levetiracetam 500 mg tablet 500 mg PO BID #20 tabs 12/16/24 (Keppra) Allergies Allergy/AdvReac Type Severity Reaction Status Date / Time No Known Allergies Allergy Verified 12/20/24 13:00 Review of Systems Review of Systems Systems Reviewed: All systems reviewed, normal except as documented Past Medical History Past Medical History NEUROLOGIC: Positive Neurological Disorders and Seizures CARDIAC: Positive Hypertension; Negative Cardiac Disorders or Congestive Heart Failure RESPIRATORY: Negative Chronic Obstructive Pulmonary Disease (COPD) or Asthma GASTROINTESTINAL: Negative Gastrointestinal Disorders or Gastroesophageal Reflux Disease GENITOURINARY: Negative Genitourinary Disorders or Renal Disease MUSCULOSKELETAL: Negative Musculoskeletal Disorders ENDOCRINE: Negative Endocrine Disorders, Diabetes Mellitus Type 1 or Diabetes Mellitus Type 2 HEMATOLOGIC: Negative Blood Disorders PSYCHO/SOCIAL: Positive Recreational Drug Use; Negative Depression or Anxiety OTHER HISTORY: Negative Autoimmune Disease or Clostridium Difficile Family History FAMILY HISTORY: Positive Family Cardiac Disorders; Negative Family Psychiatric Problems, Family Respiratory Disorders, Family Gastrointestinal Problems, Family Cancer, Family Surgery or Family Anesthesia Reaction Surgical History SURGICAL: Positive Abdominal Surgery; Negative Cardiac Surgery, Endocrine Surgery, Ear Surgery, Nephrectomy, Neurologic Surgery or Mastectomy Social History SMOKING STATUS: Former smoker SECOND HAND EXPOSURE: No SUBSTANCE USE: marijuana and methamphetamine (last used a couple of days ago ) ED Exam Narrative Physical exam: GENERAL APPEARANCE: alert and oriented x 4, well-developed, well-nourished, no acute distress VITALS: All vitals were reviewed and the pulse ox is 98% on room air, which is normal according to my interpretation. HEENT: Normocephalic, 2 cm laceration to the lateral aspect of the left eyebrow along the eyebrow line with tenderness to the surrounding bony anatomy, no active bleeding; pupils equal, round, reactive to light; EOMI; mucous membranes pink, moist; oropharynx clear NECK: Supple; no midline c-spine tenderness LUNGS: CTABL; no wheezes, no rales, no rhonchi HEART: Regular rate, regular rhythm; normal S1, S2; no murmurs ABDOMEN: non distended; normal BS; soft, no tenderness, no guarding, no rebound; no masses, no organomegaly, no hernia BACK: no CVA tenderness EXTREMITIES: obvious deformity to left shoulder with step-off and limited ROM of the joint; no edema NEUROLOGIC: awake; alert and oriented x4; cranial nerves II-XII grossly intact; no focal sensory or motor deficits PSYCHIATRIC: appropriate mood and affect SKIN: warm, dry, normal color; no rashes Course Course Course Narrative: Patient verbally consented to have his left eyebrow sutured. Quality Measures none Orders Category Date Time Status Director Style Q4H START 00 Care 12/27/24 23:30 Active Continuous Pulse Oximetry NOW Care 12/27/24 23:30 Completed Miscellaneous Nursing Order NOW Care 12/28/24 01:[address] facial bones wo con Stat Exams 12/27/24 22:15 Completed XR shoulder LT min 2V Stat Exams 12/27/24 22:35 Completed CBC Stat Lab 12/27/24 23:49 Completed CK [Creatine Kinase] Stat Lab 12/27/24 23:49 Completed CMP [Comprehensive Metabolic Panel] Stat Lab 12/27/24 23:49 Completed INR [Prothrombin Time with INR] Stat Lab 12/27/24 23:49 Completed Lactate (Lactic Acid) Stat Lab 12/27/24 23:49 Completed PTT [Partial Thromboplastin Time] Stat Lab 12/27/24 23:49 Completed 1 gm IV x 1 Med 12/28/24 02:12 Ordered ceFAZolin/D5W 1 GM IVPB [Ancef Ivpb] 1 gm in 50 ml IV X1 LORazepam [Ativan Inj] Med 12/27/24 23:29 Discontinued 1 mg IVP X1 ONE levETIRAcetam INJ [Keppra Inj] Med 12/27/24 23:29 Discontinued 1,000 mg IVP X1 ONE levETIRAcetam INJ [Keppra Inj] Med 12/27/24 23:38 Discontinued 1,000 mg IVP X1 ONE Vital Signs Vital signs: Vital Signs Temperature 97.8 F 12/27/24 22:07 Pulse Rate 78 12/27/24 22:07 Respiratory Rate 18 12/27/24 22:07 Blood Pressure 152/87 H 12/27/24 22:07 Pulse Oximetry (%) 98 12/27/24 22:07 Oxygen Delivery Method Room Air 12/27/24 22:07 Procedures -ED Laceration Laceration 1: Site: face Side (If applicable): left Size (cm): 2 Description: linear (macerated) Depth: simple, single layer Local Anesthetic: lidocaine 1% Amount of anesthesia used (mL): 5 Pre-repair: irrigated extensively Skin layer closed with: nylon Size (cm): 5-0 Number of sutures: 6 Technique: simple, interrupted MDM Patient data External records reviewed:: [facility] previous records (Per chart review, patient was seen here on 12/20/24 for recurrent seizures.) Clinical information provided by:: patient Social determinants that could affect healthcare access:: substance use (former drinker; history of methamphetamine abuse) Patient has the following chronic illnesses:: seizures How is presenting disease/condition affected by chronic disease/condition?: caused by Evaluation data The following diagnostics were reviewed and interpreted by me:: lab results and radiology exam(s) Lab and/or radiology exams considered but not ordered:: none Interpretation Summary: Left shoulder x-ray shows a traumatice fracture of the lateral third of the clavicle, acromion fracture, and no proximal humerus fracture, according to my interpretation. [facility] Report Signed Patient: PRIYA MICHELLE Record#: [id number] Birthdate: 1960 Age/Sex: 64 / M Location: [facility] Attending Dr: Ordering Physician: Luis Tellez MD Date of Service: 12/27/24 Procedure(s): CT facial bones wo con Accession Number(s): [id number] cc: Fermín Stone MD; Luis Tellez MD~ Examination: CT maxillofacial, without intravenous contrast. 2-D sagittal reconstructions. 3-D reconstructions. Date and time of exam:December 27, 2024 at 10:30 PM Indications: Left periorbital swelling and laceration today CTDI: vol (mGy):24.6 DLP: (mGycm):466 Technique: Multiple axial images of maxillofacial region, 3.0 mm slice thickness. 2-D sagittal and coronal reconstructions. 3-D reconstructions. Low dose protocols were performed. One or more of the following dose reduction techniques were used; automated exposure control, adjustment of the mA and/or KV according to patient size, use of iterative reconstruction technique. 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 Dictated By: Fermín Stone MD Signed By: <Electronically signed by Fermín Stone MD in OV> 12/27/24 6219 [facility] Report Signed Patient: PRIYA MICHELLE Record#: [id number] Birthdate: 1960 Age/Sex: 64 / M Location: [facility] Attending Dr: Ordering Physician: Luis Tellez MD Date of Service: 12/27/24 Procedure(s): XR shoulder LT min 2V Accession Number(s): [id number] cc: Fermín Stone MD; Toribio Gibson MD; Luis Tellez MD~ Examination: Shoulder,left, 3 views Technique: Shoulder AP internal rotation, AP external rotation, Y view shoulder, 3 views Exam date and time :December 27, 2024 at 10:55 PM Indications: Seizure today, patient fell with injury to the shoulder, shoulder pain. Findings: Acute comminuted fractures distal clavicle with displaced fracture fragments Cephalad displacement of the main clavicle shaft Small fracture off the scapula at the lateral margin of the acromium Humeral head neck and visualized shaft intact No shoulder dislocation Impression: Acute comminuted fractures distal clavicle with displaced fracture fragments Small fracture off the scapula at the lateral margin of the acromium Dictated By: Fermín Stone MD Signed By: <Electronically signed by Fermín Stone MD in OV> 12/27/24 7798 Medications Medications considered but not ordered:: none Medication administrations:: Medication Administration History Discontinued Medications Levetiracetam (Levetiracetam Inj 100 Mg/Ml Vial 5ml) 1,000 mg IVP X1 ONE Stop: 12/27/24 23:30 Last Admin: 12/27/24 23:40 Dose: 1,000 mg Documented By: ORLANDO Levetiracetam (Levetiracetam Inj 100 Mg/Ml Vial 5ml) 1,000 mg IVP X1 ONE Stop: 12/27/24 23:39 Last Admin: 12/27/24 23:48 Dose: Not Given Documented By: ORLANDO Non-Admin Reason: Duplicate Medication on eMAR Lorazepam (Lorazepam 2 Mg/Ml Vial) 1 mg IVP X1 ONE Stop: 12/27/24 23:30 Last Admin: 12/27/24 23:37 Dose: 1 mg Documented By: ORLANDO see above Consultations Consultation(s) initiated? (list below): Yes Consultation #1 (Physician, Specialty, Details): See MDM narrative. Diagnosis Differential Diagnosis ED Complaint MDM: facial fracture, ICH, open shoulder fracture, shoulder dislocation Most likely diagnosis given after review of the tests above:: Other DDx: closed shoulder fracture Final DDx: see below Admission Indicated Admission indicated?: not indicated Explain why admission is indicated or not indicated:: Patient requires a higher [id number]. Admission Request Was there a request for admission?: No Disposition Plan Disposition Plan: Transfer (to [facility]) Medical Decision Making MDM Narrative MDM Narrative: Scribe Attestation: 12/27/24 - Amanda Cheek am scribing for and in the presence of Dr. Tellez. 2359: Discussed case with Dr. Mora from orthopedic surgery regarding consultation. Discussed patients ED course, exam findings, labs, and radiology results. Requests to send him the x-ray. 0002: Spoke with Dr. Mora, our orthopedic surgeon, who states the patient should be transferred. 0031: [facility] states they don't have any trauma surgeon coverage until after 0600. 0103: Spoke with [facility]'s transfer center. Awaiting callback on whether or not they accept the patient for transfer. 0152: Spoke with Dr. Britt, trauma surgeon from [facility], regarding transfer. After having an extensive conversation with him, he accepts the patient for ED-ED transfer. Differential Diagnosis Differential Diagnosis: facial fracture, ICH, open shoulder fracture, shoulder dislocation Lab Data 12/27/24 23:49 12/27/24 23:49 Labs: Lab Results 12/27/24 Range/Units 23:49 WBC 7.6 (3.8-10.6) Thou/mm3 RBC 3.96 L (4.50-5.90) Miln/mm3 Hgb 13.1 L (13.5-16.0) g/dL Hct 37.9 L (41.0-53.0) % MCV 96 (80-100) fL MCH 33.1 (25.0-35.0) pg MCHC 34.6 (31.0-37.0) g/dl RDW Std Deviation 46.1 H (35.1-43.9) fL Plt Count 187 D (140-440) Thou/mm3 Neut % (Auto) 76 (37-80) % Lymph % (Auto) 15 (10-50) % Hopkins % (Auto) 8 (0-12) % Eos % (Auto) 0 (0-10) % Baso % (Auto) 0 (0-2.5) % Neut # (Auto) 5.8 (1.8-7.7) Thou/mm3 Lymph # (Auto) 1.2 (1.0-4.8) Thou/mm3 Hopkins # (Auto) 0.6 (0.0-0.8) Thou/mm3 Eos # (Auto) 0.0 (0.0-0.5) Thou/mm3 Baso # (Auto) 0.0 (0.0-0.2) Thou/mm3 Immature Gran # (Auto) 0.02 H (0.00-0.00) Thou/mm3 Absolute Nucleated RBC 0.00 (0.00-0.00) Thou/mm3 Immature Gran % 0 (0-0) % Nucleated RBC % 0 (0) /100 WBC PT 12.2 (9.0-12.2) Seconds INR 1.1 (0.9-1.3) APTT 28.6 (22.0-36.0) Seconds Sodium 139 (136-145) mMol/L Potassium 4.7 (3.4-5.1) mMol/L Chloride 106 (98-107) mMol/L Carbon Dioxide 28.8 (20.0-31.0) mMol/L Anion Gap 4 L (7-16) BUN 19 (9-23) mg/dL Creatinine 0.7 (0.6-1.3) mg/dL Estim Creat Clear Calc 84.2 (>60) mL/min eGFR > 60 (60 - ) See Note BUN/Creatinine Ratio 27 H (12-20) Ratio Glucose 98 (74-106) mg/dL Calculated Osmolality 279 (275-295) Lactic Acid 1.2 (0.4-2.0) mMol/L Calcium 8.7 (8.3-10.6) mg/dL Corrected Calcium 8.9 (8.5-10.1) mg/dL Total Bilirubin 0.5 (0.3-1.2) mg/dL AST 100 H (0-34) U/L ALT 67 H (10-49) U/L Alkaline Phosphatase 176 H (46-116) U/L Total Creatine Kinase 144 D (34-171) U/L Total Protein 7.9 (5.7-8.2) gm/dL Albumin 3.7 (3.4-4.8) gm/dL Globulin 4.2 H (2.3-3.5) gm/dL Albumin/Globulin Ratio 0.9 L (1.2-2.2) Critical Care Time Critical Care Time Critical Care Time: Yes Total Critical Care Time (min.): 50 Attestation: The high probability of sudden, clinically significant deterioration in the patient?s condition required the highest level of my preparedness to intervene urgently. The services I provided to this patient were to treat and/or prevent clinically significant deterioration. Services included the following: chart data review, reviewing nursing notes and/or old charts, documentation time, medical social consultant collaboration regarding findings and treatment options, medication orders and management, direct patient care, vital sign assessments and ordering, interpreting and reviewing diagnostic studies and lab tests. Aggregate critical care time includes only time during which I was engaged in work directly related to the patient?s care, as described above, whether at bedside or elsewhere in the Emergency Department. It did not include time spent performing other reported procedures or the services of residents, students, nurses or physician assistants. Discharge Plan Plan Patient Disposition: [facility] Pt Being Transferred to: [facility] Service Needed for Transfer: Orthopedics Disposition Comment: Accepted by Dr. Britt Prescriptions/Referrals Prescriptions/Med Rec: No Action levetiracetam [Keppra] 500 mg tablet 500 mg PO BID Qty: 30 0RF levetiracetam [Keppra] 500 mg tablet 500 mg PO BID Qty: 30 0RF levetiracetam [Keppra] 500 mg tablet 500 mg PO BID Qty: 60 0RF levetiracetam [Keppra] 500 mg tablet 500 mg PO BID Qty: 20 0RF ibuprofen 600 mg tablet 600 mg PO Q6H PRN (Reason: pain) Qty: 30 0RF levetiracetam [Keppra] 500 mg tablet 500 mg PO BID Qty: 20 0RF levetiracetam [Keppra] 500 mg tablet 500 mg PO BID Qty: 20 0RF levetiracetam [Keppra] 500 mg tablet 500 mg PO BID Qty: 30 0RF levetiracetam [Keppra] 500 mg tablet 500 mg PO BID Qty: 60 0RF levetiracetam 500 mg tablet 500 mg PO TID Qty: 90 0RF levetiracetam [Keppra] 500 mg tablet 500 mg PO BID Qty: 30 0RF levetiracetam [Keppra] 500 mg tablet 500 mg PO BID Qty: 60 0RF Referrals: SQ Toribio Casper MD [Primary Care Provider] - In 1 week Problem List Clinical Impression: Open clavicular fracture, Facial laceration, Acromial fracture Patient/Caregiver Discharge Instructions Print Language: Lithuanian Stand Alone Forms: Linda Award Info., Patient Portal Info Letter
[2024-12-27 22:19] VITALS: PULSE 78; RESP 16; O2SAT 98
--- NOTE | 2024-12-27 22:35 | XR_ITS ---
Examination: Shoulder,left, 3 views Technique: Shoulder AP internal rotation, AP external rotation, Y view shoulder, 3 views Exam date and time :December 27, 2024 at 10:55 PM Indications: Seizure today, patient fell with injury to the shoulder, shoulder pain. Findings: Acute comminuted fractures distal clavicle with displaced fracture fragments Cephalad displacement of the main clavicle shaft Small fracture off the scapula at the lateral margin of the acromium Humeral head neck and visualized shaft intact No shoulder dislocation Impression: Acute comminuted fractures distal clavicle with displaced fracture fragments Small fracture off the scapula at the lateral margin of the acromium
--- NOTE | 2024-12-27 23:14 | PC.NURSE ---
Pt. brought in by EMS d/t seizures lasting approximately 30 sec with loss of conciseness and fall sustaining a laceration to left lateral eye. Pt. upon arrival GSC 15 with seizure precautions in place.
[2024-12-27] MEDS: LORazepam 2 MG/ML VIAL 1 MG IVP (23:37)
[2024-12-27] MEDS: levETIRAcetam INJ 100 MG/ML VIAL 5ML 1000 MG IVP (23:40)
[2024-12-27 23:56] LABS: Basophils % (Auto) 0 % (0-2.5); Eosinophils % (Auto) 0 % (0-10); Hematocrit 37.9 % (41.0-53.0); Hemoglobin 13.1 g/dL (13.5-16.0); Immature Granulocytes % (Auto) 0 % (0-0); Immature Granulocytes Auto 0.02 Thou/mm3 (0.00-0.00); Lactate (Lactic Acid) 1.2 mMol/L (0.4-2.0); Lymphocytes # (Auto) 1.2 Thou/mm3 (1.0-4.8); Lymphocytes % (Auto) 15 % (10-50); Mean Corpuscular HGB Conc 34.6 g/dl (31.0-37.0); Mean Corpuscular Hemoglobin 33.1 pg (25.0-35.0); Mean Corpuscular Volume 96 fL (80-100); Monocytes # (Auto) 0.6 Thou/mm3 (0.0-0.8); Monocytes % (Auto) 8 % (0-12); Neutrophils # (Auto) 5.8 Thou/mm3 (1.8-7.7); Neutrophils % (Auto) 76 % (37-80); Nucleated Red Blood Cell % 0 /100 WBC (0); Platelet Count 187 Thou/mm3 (140-440); RDW Standard Deviation 46.1 fL (35.1-43.9); Red Blood Count 3.96 Miln/mm3 (4.50-5.90); White Blood Count 7.6 Thou/mm3 (3.8-10.6)
[2024-12-28 00:28] VITALS: BP 141/84; PULSE 69; RESP 17; TEMP 36.6; O2SAT 98
[2024-12-28 00:35] LABS: INR 1.1 (0.9-1.3); Partial Thromboplastin Time 28.6 Seconds (22.0-36.0); Prothrombin Time 12.2 Seconds (9.0-12.2)
--- NOTE | 2024-12-28 00:36 | PC.NURSE ---
0019 [facility] CONTACTED ORTHO TRAUMA UNAVAILABLE AT THIS TIME.
[2024-12-28 00:38] LABS: Alanine Aminotransferase 67 U/L (10-49); Albumin, Serum 3.7 gm/dL (3.4-4.8); Albumin/Globulin Ratio 0.9 (1.2-2.2); Alkaline Phosphatase 176 U/L (46-116); Anion Gap 4 (7-16); Aspartate Amino Transferase 100 U/L (0-34); BUN/Creatinine Ratio 27 Ratio (12-20); Bilirubin,Total 0.5 mg/dL (0.3-1.2); Blood Urea Nitrogen 19 mg/dL (9-23); Calcium 8.7 mg/dL (8.3-10.6); Calcium (Corrected) 8.9 mg/dL (8.5-10.1); Carbon Dioxide 28.8 mMol/L (20.0-31.0); Chloride 106 mMol/L (98-107); Creatine Kinase 144 U/L (34-171); Creatinine (Component) 0.7 mg/dL (0.6-1.3); Estimated Creatinine Clearance 84.2 mL/min (>60); Globulin 4.2 gm/dL (2.3-3.5); Glucose 98 mg/dL (74-106); Osmolality,Calculated 279 (275-295); Potassium 4.7 mMol/L (3.4-5.1); Sodium 139 mMol/L (136-145); Total Protein 7.9 gm/dL (5.7-8.2); eGFR > 60 See Note
--- NOTE | 2024-12-28 01:06 | PC.NURSE ---
0053 [facility] CONTACTED DR AC SPEAKING WITH TRANSFER NURSE AT THIS TIME.
[2024-12-28 02:15] VITALS: BP 150/85; PULSE 71; RESP 18; TEMP 36.6; O2SAT 98
[2024-12-28 02:19] VITALS: PULSE 60
[2024-12-28] MEDS: ceFAZolin/D5W 1 GM IVPB 1 GM/50 ML BAG IV (02:27)
--- NOTE | 2024-12-28 02:52 | PC.NURSE ---
0208 PT ACCEPTED TO [facility] BY DR ZEPEDA. REPORT TO [phone].
== END 2024-12-28 03:12 | disposition short-term general hospital (02) ==
PROVIDERS: Emergency Provider Emergency Medicine; PCP Family Medicine
DX: S42.032B Displaced fracture of lateral end of left clavicle, initial encounter for open fracture (principal); S42.122A Displaced fracture of acromial process, left shoulder, initial encounter for closed fracture; S01.112A Laceration without foreign body of left eyelid and periocular area, initial encounter; K02.9 Dental caries, unspecified; G40.909 Epilepsy, unspecified, not intractable, without status epilepticus; Z87.891 Personal history of nicotine dependence; W19.XXXA Unspecified fall, initial encounter; Y92.248 Other public administrative building as the place of occurrence of the external cause; Y93.89 Activity, other specified
CPT/HCPCS: 12011; 36415; 70486; 73030; 80053; 82550; 83605; 85025; 85610; 85730; 96365; 99291; J0689; J1953; J2060

== ENCOUNTER 2025-02-04 08:10 | Emergency (ER) | payer MEDICAID, SELFPAY ==
[2025-02-04 08:32] VITALS: BP 126/71; PULSE 71; RESP 14; TEMP 36.4; O2SAT 97
[2025-02-04 08:57] VITALS: PULSE 64; RESP 16; O2SAT 97; BMI 25.0
--- NOTE | 2025-02-04 09:58 | PD.EDSEIZ ---
ED Seizures RME/HPI General Chief Complaint: Seizure Stated Complaint: SEIZURES Time Seen by Provider: 02/04/25 08:13 Arrival date/time: 02/04/25 08:10 RME / HPI RME / HPI Narrative: 65 year old male presented to the ER TED with a history of seizures, per EMS complains of seizure episode lasting 2 minutes, taken place at the homeless intermediate. During the seizure episode, patient was standing and had a ground-level fall resulting in hitting his head into a metal bar on a door nearby. Per EMS, patient lost consciousness but denies bleeding of the head or other injuries. When presented in ambulance bay, patient was awake and responsive. Per EMS, patient is non-compliant with his medications. Related Data Previous Rx's ?Medication ?Instructions ?Recorded levetiracetam 500 mg tablet 500 mg PO BID #30 tabs 10/20/22 (Keppra) levetiracetam 500 mg tablet 500 mg PO BID #60 tabs 02/25/23 (Keppra) levetiracetam 500 mg tablet 500 mg PO BID #30 tabs 08/17/23 (Keppra) levetiracetam 500 mg tablet 500 mg PO BID #30 tabs 12/28/23 (Keppra) levetiracetam 500 mg tablet 500 mg PO TID #90 tabs 02/29/24 levetiracetam 500 mg tablet 500 mg PO BID #60 tabs 03/22/24 (Keppra) levetiracetam 500 mg tablet 500 mg PO BID #30 tabs 07/04/24 (Keppra) levetiracetam 500 mg tablet 500 mg PO BID #20 tabs 07/11/24 (Keppra) ibuprofen 600 mg tablet 600 mg PO Q6H PRN pain #30 tabs 07/19/24 levetiracetam 500 mg tablet 500 mg PO BID #60 tabs 09/17/24 (Keppra) levetiracetam 500 mg tablet 500 mg PO BID #20 tabs 09/29/24 (Keppra) levetiracetam 500 mg tablet 500 mg PO BID #20 tabs 12/16/24 (Keppra) Allergies Allergy/AdvReac Type Severity Reaction Status Date / Time No Known Allergies Allergy Verified 02/04/25 09:01 Review of Systems Review of Systems Systems Reviewed: All systems reviewed, normal except as documented Narrative Review of Systems: Constitutional: DENIES; Fevers Eyes: DENIES; Loss of vision Head/Ear/Nose: +head injury(see HPI) DENIES; Loss of hearing Throat: DENIES; Dysphagia Cardiovascular: DENIES; Chest pain, dyspnea or syncope Respiratory: DENIES; Shortness of breath Gastrointestinal: DENIES; Rectal bleeding or melena. Genitourinary: DENIES; Dysuria (painful or difficult urination) Musculoskeletal: DENIES; Arthralgia (pain in a joint),; Skin: DENIES; Rash Neurological: + seizure DENIES; Loss of function or movement Psychiatric: DENIES; recent major life stressor, emotional problem, illicit drug use or abuse Endocrinology: DENIES; Weight change Hematologic/Lymphatic: DENIES; Abnormal bruising Allergic/Immunologic: DENIES; Urticaria (hives) Past Medical History Past Medical History NEUROLOGIC: Positive Neurological Disorders and Seizures CARDIAC: Positive Hypertension PSYCHO/SOCIAL: Positive Recreational Drug Use Family History FAMILY HISTORY: Positive Family Cardiac Disorders Surgical History SURGICAL: Positive Abdominal Surgery Social History SMOKING STATUS: Never smoker SECOND HAND EXPOSURE: No SUBSTANCE USE: marijuana and methamphetamine (last used a couple of days ago ) ED Exam Narrative Physical exam: Physical Exam: General: The vital signs were reviewed. The patient is non-toxic, in no apparent distress and appears healthy with a patent airway, no respiratory distress and has no apparent circulatory problems. Head & Scalp: Normocephalic, atraumatic. Face: Appears normal and is without lesions, deformity. Ears: Left external pinna appears normal. Right external pinna appears normal. Eyes: The sclera is anicteric. No obvious photophobia. The Left and Right Orbit/Lid/Conjunctiva appears normal without swelling, discoloration or injection. Nose: The nose is without deformity, discharge or tenderness; Throat: Appears normal. The mucous membranes are pink and moist without exudates, redness or mass seen. The tongue appears normal. Neck: The neck is supple and no apparent mass or adenopathy. Chest: The chest wall is normal in size and symmetry and has no chest wall tenderness or crepitus. The patient displays normal ventilator effort without retractions, accessory muscle use and has adequate air movement bilaterally with no wheezes and no rales. Cardiovascular: Regular rate and rhythm; No murmurs, rubs, or gallops; Gastrointestinal: The abdomen appears normal. No obvious hernias or mass. The abdomen is soft and benign, non-distended, with no pain, no guarding and no rebound tenderness. Bowel sounds are present and normal sounding. No CVA tenderness. Genitourinary: Back/Spine: No complaint. Extremities/Musculoskeletal/lymphatic: The bilateral upper and lower extremities are warm. There is no evidence of arterial insufficiency. There is no evidence of venous insufficiency/edema. The patient spontaneously moves bilateral upper and lower extremities with no pain and no limitation of movement. There is no apparent, injury or trauma. Skin: The skin is warm, dry and intact. No rashes. No petechia. No purpura. No abnormal bruising. The color is appropriate with no cyanosis. Mental status/Psychiatric: Mental status is appropriate for age. The patient has no apparent delusions, visual hallucinations, no apparent audible hallucinations. The patient has no apparent suicidal thoughts/ideation and no apparent homicidal thoughts/ideation. Neurological: The patient is awake, alert, interactive, cordial, cooperative and is oriented to name and situation. The patient follows commands and answers historical question with no impairment. There is no visual disturbance apparent. The pupils are equal and reactive bilaterally with normal eye movements and no diplopia The bilateral upper and lower extremities have normal strength, normal range of motion and normal functioning. The gait, station and balance not tested as patient is ambulance bay and is resolving his postictal state. Course Quality Measures none Orders Category Date Time Status EKG (ED ONLY) *Do not use* NOW Care 02/04/25 10:13 Completed Miscellaneous Nursing Order NOW Care 02/04/25 10:[address] head/brain wo con Stat Exams 02/04/25 10:31 Completed EKG (ED Only) Stat Exams 02/04/25 10:13 Draft CBC Stat Lab 02/04/25 11:05 Completed Comprehensive Metabolic Panel Stat Lab 02/04/25 11:05 Completed Drug Screen,Urine Stat Lab 02/04/25 14:30 Completed Lactate (Lactic Acid) Stat Lab 02/04/25 10:42 Completed Lactic Acid, 3 HR Stat Lab 02/04/25 14:20 Completed Urinalysis Stat Lab 02/04/25 14:30 Completed Venous Blood Gas Stat Lab 02/04/25 11:05 Completed LORazepam [Ativan Inj] Med 02/04/25 10:10 Discontinued 1 mg IVP X1 ONE LORazepam [Ativan Inj] Med 02/04/25 10:10 Discontinued 1 mg IVP X1 ONE LORazepam [Ativan Inj] Med 02/04/25 10:08 Discontinued 2 mg .ROUTE .STK-MED ONE levETIRAcetam INJ [Keppra Inj] Med 02/04/25 08:56 Discontinued 1,000 mg IVP X1 ONE Vital Signs Vital signs: Vital Signs Temperature 97.5 F 02/04/25 08:32 Pulse Rate 71 02/04/25 08:32 Respiratory Rate 14 02/04/25 08:32 Blood Pressure 126/71 02/04/25 08:32 Pulse Oximetry (%) 97 02/04/25 08:32 Oxygen Delivery Method Room Air 02/04/25 08:32 Pulse ox is 97% on room air which is adequate. Seizure MDM Narrative MDM Narrative:: Patient is a 65-year-old with known seizure disorder who is frequently noncompliant and comes in after having a seizure today while at the homeless intermediate. Patient admits to not taking his medications. When I saw him in the ambulance bay he was nearly resolved from his postictal phase he was talking and has no acute complaint. IV Keppra was ordered and he was left in the hallway. Unfortunately at 1009 hrs. patient is having a tonic-clonic seizure and evidently has not got his medicine at this time. Nurse moved him to room to where they are working on a stat IV and they will start his treatment. Should be noted although this patient had a seizure and fell back and maybe hit his head he had no injury to his head he had no complaints of head pain when I saw him when he was alert in the ambulance bay. He was moving his neck with no discomfort and no hesitancy. Because of this I see no reason to do a medical workup since he has been there many times before. Unfortunately he was in the hallway waiting for medicines to be given when he had a seizure in the department and because has had multiple visits for noncompliance and seizure and he uses methamphetamine, we will do another mini workup on him. I, Colleen Villela, am scribing for and in the presence of Dr. Jarrett. Patient data External records reviewed:: [facility] previous records and EMS form Clinical information provided by:: EMS Social determinants that could affect healthcare access:: housing (pt homeless and currently living a homeless intermediate ) Patient has the following chronic illnesses:: seizures How is presenting disease/condition affected by chronic disease/condition?: caused by Evaluation data The following diagnostics were reviewed and interpreted by me:: lab results, radiology exam(s) and EKG tracing(s) ( EKG#1: EKG at 1019 hours.Interpreted by me: sinus rhythm, rate 81, no STEMI ) Lab and/or radiology exams considered but not ordered:: none Interpretation Summary: Ordering Physician: Rito Jarrett MD Date of Service: 02/04/25 Procedure(s): CT head/brain wo con Accession Number(s): [id number] cc: Kelby Schneider MD; Erik Alba MD; Rito Jarrett MD~ Examination: CT brain head without contrast. 2-D sagittal coronal reconstructions Date and time of exam:02/04/2025, 10:39 AM COMPARISON: 11/21/2024 INDICATION: Trauma CTDI: vol (mGy):45.2 DLP: (mGycm):941 Technique: Multiple CT axial sections of the brain have been obtained, 5 mm slice thickness. Contrast has not been administered. 2-D sagittal, coronal reconstructions have been obtained Low dose protocols were performed. One or more of the following dose reduction techniques were used; automated exposure control, adjustment of the mA and/or KV according to patient size, use of iterative reconstruction technique. Findings: No significant ventricular enlargement. Intra-axial or extra-axial hemorrhage density is not seen. No mass effect or midline shift Basal cisterns are not remarkable. Fourth ventricle is midline. Cranial vault intact. Impression: Negative for acute hemorrhage, mass effect or midline shift Dictated By: Kelby Schneider MD Signed By: <Electronically signed by Kelby Schneider MD in OV> 02/04/25 1122 Medications / Prescriptions Medications or Prescriptions considered but not ordered:: none Medication administrations:: Medication Administration History Discontinued Medications Levetiracetam (Levetiracetam Inj 100 Mg/Ml Vial 5ml) 1,000 mg IVP X1 ONE Stop: 02/04/25 08:57 Last Admin: 02/04/25 10:09 Dose: 1,000 mg Documented By: SHAHRZAD Lorazepam (Lorazepam 2 Mg/Ml Vial) 1 mg IVP X1 ONE Stop: 02/04/25 10:11 Last Admin: 02/04/25 10:13 Dose: 1 mg Documented By: SHAHRZAD Lorazepam (Lorazepam 2 Mg/Ml Vial) Confirm Administered Dose 2 mg .ROUTE .STK-MED ONE Stop: 02/04/25 10:09 Last Admin: 02/04/25 10:12 Dose: Not Given Documented By: SHAHRZAD Non-Admin Reason: Override Medication Lorazepam (Lorazepam 2 Mg/Ml Vial) 1 mg IVP X1 ONE Stop: 02/04/25 10:11 Last Admin: 02/04/25 10:13 Dose: Not Given Documented By: SHAHRZAD Non-Admin Reason: Override Medication see above Consultations Consultation(s) initiated? (list below): No Diagnosis Seizure Differential Diagnosis: intractable seizure disorder, focal seizure, generalized seizure, epileptic seizure and status epilepticus Most likely diagnosis given after review of the tests above:: Seizure disorder with breakthrough seizures and noncompliance Admission Indicated Admission indicated?: not indicated Admission Request Was there a request for admission?: No Disposition Plan Disposition Plan: Discharge Discharge Attestation Discharge Attestation: The patient and all family members were given an opportunity to ask questions and understood the discharge instructions. Discharge instructions specifically effects, indications for sooner follow up or return to the emergency department, and the expected course of current diagnosis. Patient condition: Stable Discharge Plan Plan Patient Disposition: HOME (Self Care) Prescriptions/Referrals Prescriptions/Med Rec: No Action levetiracetam [Keppra] 500 mg tablet 500 mg PO BID Qty: 30 0RF levetiracetam [Keppra] 500 mg tablet 500 mg PO BID Qty: 30 0RF levetiracetam [Keppra] 500 mg tablet 500 mg PO BID Qty: 60 0RF levetiracetam [Keppra] 500 mg tablet 500 mg PO BID Qty: 20 0RF ibuprofen 600 mg tablet 600 mg PO Q6H PRN (Reason: pain) Qty: 30 0RF levetiracetam [Keppra] 500 mg tablet 500 mg PO BID Qty: 20 0RF levetiracetam [Keppra] 500 mg tablet 500 mg PO BID Qty: 20 0RF levetiracetam [Keppra] 500 mg tablet 500 mg PO BID Qty: 30 0RF levetiracetam [Keppra] 500 mg tablet 500 mg PO BID Qty: 60 0RF levetiracetam 500 mg tablet 500 mg PO TID Qty: 90 0RF levetiracetam [Keppra] 500 mg tablet 500 mg PO BID Qty: 30 0RF levetiracetam [Keppra] 500 mg tablet 500 mg PO BID Qty: 60 0RF Referrals: Erik Alba MD [Primary Care Provider] - In 1 week Problem List Clinical Impression: Seizure disorder, Methamphetamine abuse, Poor compliance with medication, Breakthrough seizure Patient/Caregiver Discharge Instructions Additional Instructions: Please see your doctor and keep your prescriptions updated and take your medicines exactly as prescribed. Please stop using alcohol and methamphetamine. Print Language: Serbian
[2025-02-04] MEDS: levETIRAcetam INJ 100 MG/ML VIAL 5ML 1000 MG IVP (10:09)
[2025-02-04] MEDS: LORazepam 2 MG/ML VIAL 1 MG IVP (10:13)
--- NOTE | 2025-02-04 10:13 | EKG_ITS ---
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
--- NOTE | 2025-02-04 10:31 | XR_ITS ---
Examination: CT brain head without contrast. 2-D sagittal coronal reconstructions Date and time of exam:02/04/2025, 10:39 AM COMPARISON: 11/21/2024 INDICATION: Trauma CTDI: vol (mGy):45.2 DLP: (mGycm):941 Technique: Multiple CT axial sections of the brain have been obtained, 5 mm slice thickness. Contrast has not been administered. 2-D sagittal, coronal reconstructions have been obtained Low dose protocols were performed. One or more of the following dose reduction techniques were used; automated exposure control, adjustment of the mA and/or KV according to patient size, use of iterative reconstruction technique. Findings: No significant ventricular enlargement. Intra-axial or extra-axial hemorrhage density is not seen. No mass effect or midline shift Basal cisterns are not remarkable. Fourth ventricle is midline. Cranial vault intact. Impression: Negative for acute hemorrhage, mass effect or midline shift
[2025-02-04 11:09] LABS: Base Excess, Venous 3 (-3-3); O2 Saturation, Venous 80 % (96-97); PCO2, Venous 37 mmHg (36-56); PO2, Venous 43 mmHg (15-58); pH, Venous 7.46 (7.33-7.66)
[2025-02-04 11:11] LABS: Basophils % (Auto) 1 % (0-2.5); Eosinophils % (Auto) 0 % (0-10); Hematocrit 38.1 % (41.0-53.0); Hemoglobin 13.1 g/dL (13.5-16.0); Immature Granulocytes % (Auto) 0 % (0-0); Immature Granulocytes Auto 0.02 Thou/mm3 (0.00-0.00); Lymphocytes % (Auto) 16 % (10-50); Mean Corpuscular HGB Conc 34.4 g/dl (31.0-37.0); Mean Corpuscular Hemoglobin 33.4 pg (25.0-35.0); Mean Corpuscular Volume 97 fL (80-100); Monocytes # (Auto) 0.5 Thou/mm3 (0.0-0.8); Monocytes % (Auto) 9 % (0-12); Neutrophils # (Auto) 4.5 Thou/mm3 (1.8-7.7); Neutrophils % (Auto) 74 % (37-80); Nucleated Red Blood Cell % 0 /100 WBC (0); Platelet Count 142 Thou/mm3 (140-440); RDW Standard Deviation 46.4 fL (35.1-43.9); Red Blood Count 3.92 Miln/mm3 (4.50-5.90)
[2025-02-04 11:31] LABS: Alanine Aminotransferase 64 U/L (10-49); Albumin, Serum 3.3 gm/dL (3.4-4.8); Albumin/Globulin Ratio 0.8 (1.2-2.2); Alkaline Phosphatase 199 U/L (46-116); Anion Gap 6 (7-16); Aspartate Amino Transferase 92 U/L (0-34); BUN/Creatinine Ratio 23 Ratio (12-20); Bilirubin,Total 0.8 mg/dL (0.3-1.2); Blood Urea Nitrogen 14 mg/dL (9-23); Calcium 8.4 mg/dL (8.3-10.6); Carbon Dioxide 27.8 mMol/L (20.0-31.0); Chloride 105 mMol/L (98-107); Creatinine (Component) 0.6 mg/dL (0.6-1.3); Estimated Creatinine Clearance 109.6 mL/min (>60); Globulin 4.1 gm/dL (2.3-3.5); Glucose 106 mg/dL (74-106); Osmolality,Calculated 278 (275-295); Potassium 3.9 mMol/L (3.4-5.1); Sodium 139 mMol/L (136-145); Total Protein 7.4 gm/dL (5.7-8.2); eGFR > 60 See Note
[2025-02-04 13:23] VITALS: BP 138/84; PULSE 58; RESP 17; TEMP 36.5; O2SAT 97
[2025-02-04 13:44] LABS: Reflex Lactate? Y
[2025-02-04 14:30] LABS: Lactic Acid, 3 HR 1.6 mMol/L (0.4-2.0)
[2025-02-04 14:34] VITALS: BP 154/95; PULSE 65; RESP 18; TEMP 36.6; O2SAT 97
[2025-02-04 14:52] LABS: Collection Type, Urine Catheter; Squamous Epithelial Cell,Urine 0 /hpf (0-5)
[2025-02-04 15:02] LABS: Bilirubin,Urine Negative (Negative); Blood,Urine Negative (Negative); Clarity,Urine Clear (Clear/Hazy); Color,Urine Lt-Yellow (Lt Yel-Yel); Glucose, Urine Negative (Negative); Ketones,Urine Negative (Negative); Leukocyte Esterase,Urine Negative (Negative); Nitrite,Urine Negative (Negative); PH,Urine 6.5 (5.0-7.0); Protein,Urine Negative (Neg - Trace); RBC,Urine < 1 /hpf (0-3); Urobilinogen,Urine Negative mg/dL (0.0-1.0); WBC,Urine 1 /hpf (0-5)
[2025-02-04 15:38] LABS: Amphetamine/Methamp Scrn,U Positive (Negative); Barbiturate Screen,Urine Negative (Negative); Benzodiazepines Screen,Urine Negative (Negative); Benzoylecgonine Screen, Ur Negative (Negative); Fentanyl Screen,Urine Negative (Negative); Opiate Screen,Urine Negative (Negative); THC Screen,Urine Positive (Negative)
--- NOTE | 2025-02-04 15:56 | PC.NURSE ---
Took Pt for a road test per RN Get Solomon. Pt passed road test. RN notified.
[2025-02-04 16:16] VITALS: BP 143/84; PULSE 85; RESP 18; TEMP 36.7; O2SAT 97
[2025-02-04 18:10] VITALS: BP 136/72; PULSE 82; RESP 16; TEMP 36.7; O2SAT 97
== END 2025-02-04 18:10 | disposition home or self-care (01) ==
PROVIDERS: Emergency Provider Emergency Medicine; PCP Family Medicine
DX: R56.9 Unspecified convulsions (principal); Z91.148 Patient's other noncompliance with medication regimen for other reason; Z59.01 Sheltered homelessness; F15.10 Other stimulant abuse, uncomplicated
CPT/HCPCS: 36415; 70450; 80053; 80307; 81001; 82803; 83605; 85025; 93005; 96374; 96375; 99284; J1953; J2060

== ENCOUNTER 2025-02-19 08:26 | Emergency (ER) | payer MEDICAID, SELFPAY ==
[2025-02-19 08:28] VITALS: BP 143/76; PULSE 86; RESP 20; TEMP 36.3; O2SAT 100; BMI 23.3
[2025-02-19 08:30] VITALS: PULSE 80; RESP 20; O2SAT 100
--- NOTE | 2025-02-19 08:37 | EKG_ITS ---
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
[2025-02-19] MEDS: levETIRAcetam INJ 100 MG/ML VIAL 5ML 1000 MG IVP (08:51)
--- NOTE | 2025-02-19 08:51 | PD.EDSEIZ ---
ED Seizures RME/HPI General Chief Complaint: Seizure Stated Complaint: SEIZURE Time Seen by Provider: 02/19/25 08:30 Arrival date/time: 02/19/25 08:26 RME / HPI RME / HPI Narrative: 65 year old male with history of seizure, methamphetamine abuse, marijuana abuse, alcohol abuse, presents to the ER for evaluation after seizure. Patient stated when asked if he had a seizure, I don't know, I think so. Per patient, he is no longer taking Keppra but reports taking a different seizure medication. No other complaints reported while in the ED. Related Data Previous Rx's ?Medication ?Instructions ?Recorded levetiracetam 500 mg tablet 500 mg PO BID #30 tabs 10/20/22 (Keppra) levetiracetam 500 mg tablet 500 mg PO BID #60 tabs 02/25/23 (Keppra) levetiracetam 500 mg tablet 500 mg PO BID #30 tabs 08/17/23 (Keppra) levetiracetam 500 mg tablet 500 mg PO BID #30 tabs 12/28/23 (Keppra) levetiracetam 500 mg tablet 500 mg PO TID #90 tabs 02/29/24 levetiracetam 500 mg tablet 500 mg PO BID #60 tabs 03/22/24 (Keppra) levetiracetam 500 mg tablet 500 mg PO BID #30 tabs 07/04/24 (Keppra) levetiracetam 500 mg tablet 500 mg PO BID #20 tabs 07/11/24 (Keppra) levetiracetam 500 mg tablet 500 mg PO BID #60 tabs 09/17/24 (Keppra) levetiracetam 500 mg tablet 500 mg PO BID #20 tabs 09/29/24 (Keppra) levetiracetam 500 mg tablet 500 mg PO BID #20 tabs 12/16/24 (Keppra) Allergies Allergy/AdvReac Type Severity Reaction Status Date / Time No Known Allergies Allergy Verified 02/04/25 09:01 Review of Systems Review of Systems Narrative Review of Systems: GEN: No fever, no chills, no weight loss EYES: No discharge, no visual changes, no pain HEENT: No ear pain, no congestion, no sore throat PULM: No shortness of breath, no cough, no congestion CV: No chest pain, no dyspnea on exertion, no palpitations GI: No nausea, no vomiting, no diarrhea, no pain, no constipation : No frequency, no urgency, no dysuria MUSC/SKEL: No joint pain, no back pain SKIN: No rash PSYCH: No hallucinations, no depression HEME/LYMPH: No easy bleeding or bruising tendencies NEURO: No weakness, no headache, +seizure per medics Past Medical History Past Medical History NEUROLOGIC: Positive Neurological Disorders and Seizures CARDIAC: Positive Hypertension PSYCHO/SOCIAL: Positive Recreational Drug Use Family History FAMILY HISTORY: Positive Family Cardiac Disorders Surgical History SURGICAL: Positive Abdominal Surgery Social History SMOKING STATUS: Never smoker SECOND HAND EXPOSURE: No SUBSTANCE USE: marijuana and methamphetamine (last used a couple of days ago ) ED Exam Narrative Physical exam: GENERAL APPEARANCE: alert and oriented x 4, well-developed, well-nourished, no acute distress HEENT: Normocephalic, well healed wound at left brow (suture imbedded); pupils equal, round, reactive to light; EOMI; mucous membranes pink, moist; oropharynx clear NECK: Supple LUNGS: CTABL; no wheezes, no rales, no rhonchi HEART: Regular rate, regular rhythm; normal S1, S2; no murmurs ABDOMEN: non distended; normal BS; soft, no tenderness, no guarding, no rebound; no masses, no organomegaly, no hernia BACK: no CVA tenderness EXTREMITIES: curvilinear laceration at left shoulder ; no edema NEUROLOGIC: awake; alert and oriented x4; cranial nerves II-XII grossly intact; no focal sensory or motor deficits PSYCHIATRIC: appropriate mood and affect SKIN: warm, dry, normal color; no rashes Course Quality Measures none Orders Category Date 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 02/19/25 08:38 Active EKG (ED ONLY) *Do not use* NOW Care 02/19/25 08:37 Completed EKG (ED Only) Stat Exams 02/19/25 08:37 Draft B-Type Natriuretic Peptide Stat Lab 02/19/25 09:20 Completed CBC Stat Lab 02/19/25 09:20 Completed Comprehensive Metabolic Panel Stat Lab 02/19/25 09:20 Completed Lipase Stat Lab 02/19/25 09:20 Completed Magnesium Stat Lab 02/19/25 09:20 Completed Partial Thromboplastin Time Stat Lab 02/19/25 09:20 Completed Prothrombin Time with INR Stat Lab 02/19/25 09:20 Completed Troponin I Stat Lab 02/19/25 09:20 Completed levETIRAcetam INJ [Keppra Inj] Med 02/19/25 08:31 Discontinued 1,000 mg IVP X1 ONE Vital Signs Vital signs: Vital Signs Temperature 97.4 F 02/19/25 08:28 Pulse Rate 86 02/19/25 08:28 Respiratory Rate 20 02/19/25 08:28 Blood Pressure 143/76 H 02/19/25 08:28 Pulse Oximetry (%) 100 02/19/25 08:28 Oxygen Delivery Method Oxy Mask 02/19/25 08:28 Seizure MDM Narrative MDM Narrative:: Colleen Cheek am scribing for and in the presence of Dr. Zaragoza Patient data External records reviewed:: [facility] previous records and EMS form Clinical information provided by:: patient and EMS Social determinants that could affect healthcare access:: housing (homeless) Patient has the following chronic illnesses:: seizure, methamphetamine abuse, marijuana abuse, alcohol abuse How is presenting disease/condition affected by chronic disease/condition?: exacerbated by Evaluation data The following diagnostics were reviewed and interpreted by me:: lab results and EKG tracing(s) (EKG#1: EKG at 0839 hours.Interpreted by me: sinus rhythm, rate 70, normal, no ischemic changes.) Lab and/or radiology exams considered but not ordered:: none Interpretation Summary: As noted above Medications / Prescriptions Medications or Prescriptions considered but not ordered:: none Medication administrations:: Medication Administration History Discontinued Medications Levetiracetam (Levetiracetam Inj 100 Mg/Ml Vial 5ml) 1,000 mg IVP X1 ONE Stop: 02/19/25 08:32 Last Admin: 02/19/25 08:51 Dose: 1,000 mg Documented By: DO see above Consultations Consultation(s) initiated? (list below): No Diagnosis Seizure Differential Diagnosis: intractable seizure disorder, focal seizure, generalized seizure and epileptic seizure Most likely diagnosis given after review of the tests above:: recurrent seizures Admission Indicated Admission indicated?: not indicated Admission Request Was there a request for admission?: No Disposition Plan Disposition Plan: Discharge Discharge Attestation Discharge Attestation: The patient and all family members were given an opportunity to ask questions and understood the discharge instructions. Discharge instructions specifically effects, indications for sooner follow up or return to the emergency department, and the expected course of current diagnosis. Patient condition: Stable Discharge Plan Plan Patient Disposition: HOME (Self Care) Prescriptions/Referrals Prescriptions/Med Rec: No Action levetiracetam [Keppra] 500 mg tablet 500 mg PO BID Qty: 30 0RF levetiracetam [Keppra] 500 mg tablet 500 mg PO BID Qty: 30 0RF levetiracetam [Keppra] 500 mg tablet 500 mg PO BID Qty: 60 0RF levetiracetam [Keppra] 500 mg tablet 500 mg PO BID Qty: 20 0RF levetiracetam [Keppra] 500 mg tablet 500 mg PO BID Qty: 20 0RF levetiracetam [Keppra] 500 mg tablet 500 mg PO BID Qty: 20 0RF levetiracetam [Keppra] 500 mg tablet 500 mg PO BID Qty: 30 0RF levetiracetam [Keppra] 500 mg tablet 500 mg PO BID Qty: 60 0RF levetiracetam 500 mg tablet 500 mg PO TID Qty: 90 0RF levetiracetam [Keppra] 500 mg tablet 500 mg PO BID Qty: 30 0RF levetiracetam [Keppra] 500 mg tablet 500 mg PO BID Qty: 60 0RF Referrals: No Primary/Family,Physician [Primary Care Provider] - In 1 week Problem List Clinical Impression: Recurrent seizures Patient/Caregiver Discharge Instructions Education Materials: ED Seizure, Recurrent (Adult) Print Language: Uzbek Stand Alone Forms: Linda Award Info., Patient Portal Info Letter
[2025-02-19 10:00] LABS: Basophils % (Auto) 1 % (0-2.5); Eosinophils % (Auto) 1 % (0-10); Hematocrit 38.6 % (41.0-53.0); Hemoglobin 13.4 g/dL (13.5-16.0); Immature Granulocytes % (Auto) 0 % (0-0); Immature Granulocytes Auto 0.01 Thou/mm3 (0.00-0.00); Lymphocytes # (Auto) 0.9 Thou/mm3 (1.0-4.8); Lymphocytes % (Auto) 18 % (10-50); Mean Corpuscular HGB Conc 34.7 g/dl (31.0-37.0); Mean Corpuscular Hemoglobin 33.6 pg (25.0-35.0); Mean Corpuscular Volume 97 fL (80-100); Monocytes # (Auto) 0.3 Thou/mm3 (0.0-0.8); Monocytes % (Auto) 6 % (0-12); Neutrophils # (Auto) 3.9 Thou/mm3 (1.8-7.7); Neutrophils % (Auto) 75 % (37-80); Nucleated Red Blood Cell % 0 /100 WBC (0); Platelet Count 118 Thou/mm3 (140-440); Red Blood Count 3.99 Miln/mm3 (4.50-5.90); White Blood Count 5.2 Thou/mm3 (3.8-10.6)
[2025-02-19 10:06] LABS: Alanine Aminotransferase 101 U/L (10-49); Albumin, Serum 3.4 gm/dL (3.4-4.8); Albumin/Globulin Ratio 0.9 (1.2-2.2); Alkaline Phosphatase 289 U/L (46-116); Anion Gap 6 (7-16); Aspartate Amino Transferase 152 U/L (0-34); BUN/Creatinine Ratio 34 Ratio (12-20); Bilirubin,Total 0.4 mg/dL (0.3-1.2); Blood Urea Nitrogen 17 mg/dL (9-23); Calcium 8.2 mg/dL (8.3-10.6); Calcium (Corrected) 8.7 mg/dL (8.5-10.1); Carbon Dioxide 26.7 mMol/L (20.0-31.0); Chloride 106 mMol/L (98-107); Creatinine (Component) 0.5 mg/dL (0.6-1.3); Estimated Creatinine Clearance 136.5 mL/min (>60); Glucose 107 mg/dL (74-106); Lipase 37 U/L (12-53); Magnesium 1.8 mg/dL (1.6-2.6); Osmolality,Calculated 279 (275-295); Potassium 4.6 mMol/L (3.4-5.1); Sodium 139 mMol/L (136-145); Total Protein 7.4 gm/dL (5.7-8.2); Troponin I < 0.002 ng/mL (0.0-0.045); eGFR > 60 See Note
[2025-02-19 10:17] LABS: INR 1.1 (0.9-1.3); Partial Thromboplastin Time 24.8 Seconds (22.0-36.0)
[2025-02-19 10:27] LABS: B-Type Natriuretic Peptide 23 pg/mL (0-100)
[2025-02-19 11:08] VITALS: BP 136/86; PULSE 60; RESP 16; TEMP 36.4; O2SAT 100
== END 2025-02-19 13:23 | disposition home or self-care (01) ==
PROVIDERS: Emergency Provider Emergency Medicine
DX: R56.9 Unspecified convulsions (principal); I10 Essential (primary) hypertension; Z59.00 Homelessness unspecified
CPT/HCPCS: 36415; 80053; 83690; 83735; 83880; 84484; 85025; 85610; 85730; 93005; 96374; 99284; J1953

== ENCOUNTER 2025-04-19 07:26 | Emergency (ER) | payer MEDICAID, SELFPAY ==
[2025-04-19 07:29] VITALS: PULSE 80; O2SAT 98
[2025-04-19 07:34] VITALS: BMI 22.6
[2025-04-19 07:36] VITALS: BP 123/90; PULSE 82; RESP 15; TEMP 36; TEMP 37.1; O2SAT 98
--- NOTE | 2025-04-19 07:41 | EKG_ITS ---
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
--- NOTE | 2025-04-19 07:43 | XR_ITS ---
Examination: CT brain head without contrast. 2-D sagittal coronal reconstructions Date and time of exam: April 19, 2025 0817 hours Comparison February 04, 2025 INDICATIONS: Patient fell with seizures this morning with injury to the head CTDI: vol (mGy):45.6 DLP: (mGycm):894 Technique: Multiple CT axial sections of the brain have been obtained, 5 mm slice thickness. Contrast has not been administered. 2-D sagittal, coronal reconstructions have been obtained Low dose protocols were performed. One or more of the following dose reduction techniques were used; automated exposure control, adjustment of the mA and/or KV according to patient size, use of iterative reconstruction technique. Findings: No significant ventricular enlargement. Intra-axial or extra-axial hemorrhage density is not seen. No mass effect or midline shift Basal cisterns are not remarkable. Fourth ventricle is midline. Cranial vault intact. Impression: Negative for acute hemorrhage, mass effect or midline shift
--- NOTE | 2025-04-19 07:43 | XR_ITS ---
Examination: AP chest single view TECHNIQUE: AP portable upright chest single view Date and time: April 19, 2025 0802 hours Comparison September 22, 2024 INDICATIONS: Coughing chest pain today. FINDINGS: Normal heart size Lungs are clear. The osseous structures are intact Fracture left clavicle IMPRESSION: No active disease
--- NOTE | 2025-04-19 07:49 | PD.EDSEIZ ---
ED Seizures RME/HPI General Chief Complaint: Seizure Stated Complaint: SEIZURE Time Seen by Provider: 04/19/25 07:41 Arrival date/time: 04/19/25 07:26 Limitations: no limitations RME / HPI RME / HPI Narrative: DR. CHAIREZ MAIN ED EVALUATION: 65 year old male presents to the Emergency Department [facility] with complaint of break-through seizure prior to arrival. Patient is homeless, staying at a homeless detention. He states he ran out of his seizure medication in the last couple of days. PMHx: Seizures, usually takes Keppra 500 mg twice a day. Social Hx: He smokes occasionally. Denies alcohol or substance use. Related Data Previous Rx's ?Medication ?Instructions ?Recorded levetiracetam 500 mg tablet 500 mg PO BID #30 tabs 10/20/22 (Keppra) levetiracetam 500 mg tablet 500 mg PO BID #60 tabs 02/25/23 (Keppra) levetiracetam 500 mg tablet 500 mg PO BID #30 tabs 08/17/23 (Keppra) levetiracetam 500 mg tablet 500 mg PO BID #30 tabs 12/28/23 (Keppra) levetiracetam 500 mg tablet 500 mg PO TID #90 tabs 02/29/24 levetiracetam 500 mg tablet 500 mg PO BID #60 tabs 03/22/24 (Keppra) levetiracetam 500 mg tablet 500 mg PO BID #30 tabs 07/04/24 (Keppra) levetiracetam 500 mg tablet 500 mg PO BID #20 tabs 07/11/24 (Keppra) levetiracetam 500 mg tablet 500 mg PO BID #60 tabs 09/17/24 (Keppra) levetiracetam 500 mg tablet 500 mg PO BID #20 tabs 09/29/24 (Keppra) levetiracetam 500 mg tablet 500 mg PO BID #20 tabs 12/16/24 (Keppra) levetiracetam 500 mg tablet 500 mg PO BID seizure #60 tabs 04/19/25 (Keppra) Allergies Allergy/AdvReac Type Severity Reaction Status Date / Time No Known Allergies Allergy Verified 04/19/25 07:35 Review of Systems Review of Systems Systems Reviewed: All systems reviewed, normal except as documented Past Medical History Past Medical History NEUROLOGIC: Positive Neurological Disorders and Seizures CARDIAC: Positive Hypertension; Negative Cardiac Disorders or Congestive Heart Failure RESPIRATORY: Negative Chronic Obstructive Pulmonary Disease (COPD) or Asthma GASTROINTESTINAL: Negative Gastrointestinal Disorders or Gastroesophageal Reflux Disease GENITOURINARY: Negative Genitourinary Disorders or Renal Disease MUSCULOSKELETAL: Negative Musculoskeletal Disorders ENDOCRINE: Negative Endocrine Disorders, Diabetes Mellitus Type 1 or Diabetes Mellitus Type 2 HEMATOLOGIC: Negative Blood Disorders PSYCHO/SOCIAL: Positive Recreational Drug Use; Negative Depression or Anxiety OTHER HISTORY: Negative Autoimmune Disease or Clostridium Difficile Family History FAMILY HISTORY: Positive Family Cardiac Disorders; Negative Family Psychiatric Problems, Family Respiratory Disorders, Family Gastrointestinal Problems, Family Cancer, Family Surgery or Family Anesthesia Reaction Surgical History SURGICAL: Positive Abdominal Surgery; Negative Cardiac Surgery, Endocrine Surgery, Ear Surgery, Nephrectomy, Neurologic Surgery or Mastectomy Social History SMOKING STATUS: Never smoker SECOND HAND EXPOSURE: No SUBSTANCE USE: marijuana and methamphetamine (last used a couple of days ago ) ED Exam General Limitations: Present no limitations General appearance: Present alert and in no apparent distress Head Head exam: Present atraumatic, normocephalic and normal inspection Eye Eye exam: Present other (Right eye chronic erythema with eyelid deformity and a old scar.) ENT ENT exam: Present normal exam, normal oropharynx and mucous membranes moist Neck Neck exam: Present normal inspection, full ROM and trachea midline Chest Chest inspection: Present normal inspection and symmetric chest wall rise Respiratory Respiratory exam: Present normal lung sounds bilaterally Cardiovascular Cardiovascular exam: Present regular rate, normal rhythm and normal heart sounds Abdominal Exam Abdominal exam: Present soft and normal bowel sounds Extremities Exam Extremities exam: Present normal inspection and full ROM Back Exam Back exam: Present normal inspection and full ROM Neurological Exam Neurological exam: Present alert, oriented X3 and CN II-XII intact Psychiatric Psychiatric exam: Present normal affect and normal mood Skin Skin exam: Present warm, dry, intact and normal color Course Quality Measures none Orders Category Date Time Status Cathead Operator NOW Care 04/19/25 07:43 Completed Continuous Pulse Oximetry NOW Care 04/19/25 07:43 Completed EKG (ED ONLY) *Do not use* NOW Care 04/19/25 07:41 Completed Insert IV NOW Care 04/19/25 07:[address] head/brain wo con Stat Exams 04/19/25 07:43 Completed EKG (ED Only) Stat Exams 04/19/25 07:41 Draft XR chest 1V portable Stat Exams 04/19/25 07:43 Completed CBC Stat Lab 04/19/25 08:11 Completed Comprehensive Metabolic Panel Stat Lab 04/19/25 08:11 Completed Magnesium Stat Lab 04/19/25 08:11 Completed Sodium Chloride 0.9% 1000 ml [Ns] 1,000 ml Med 04/19/25 07:43 Discontinued IV 999 mls/hr levETIRAcetam INJ [Keppra Inj] Med 04/19/25 07:43 Discontinued 1,000 mg IVP X1 ONE Oxygen Delivery PRN RT 04/19/25 07:43 Completed Vital Signs Vital signs: Vital Signs Temperature 98.8 F 04/19/25 07:36 Pulse Rate 82 04/19/25 07:36 Respiratory Rate 15 04/19/25 07:36 Blood Pressure 123/90 H 04/19/25 07:36 Pulse Oximetry (%) 98 04/19/25 07:36 Oxygen Delivery Method Room Air 04/19/25 07:36 Seizure MDM Narrative MDM Narrative:: Nicki Cheek am scribing for and in the presence of Dr. Chairez. Patient data External records reviewed:: [facility] previous records and EMS form Clinical information provided by:: patient and EMS Social determinants that could affect healthcare access:: other (specify) (He smokes occasionally. Lives at a homeless detention.) Patient has the following chronic illnesses:: PMHx: Seizures, usually takes Keppra 500 mg twice a day. Social Hx: He smokes occasionally. Denies alcohol or substance use. Lives at a homeless detention. How is presenting disease/condition affected by chronic disease/condition?: caused by Evaluation data The following diagnostics were reviewed and interpreted by me:: lab results, radiology exam(s) and EKG tracing(s) Lab and/or radiology exams considered but not ordered:: none Interpretation Summary: EKG: Dated 04/19/2025 at 0838 hours. Interpreted by me: sinus rhythm, rate 64, no acute changes Procedure(s): CT head/brain wo con Accession Number(s): [id number] cc: Jose Chairez MD; Erik Alba MD; Fermín Stone MD~ Examination: CT brain head without contrast. 2-D sagittal coronal reconstructions Date and time of exam: April 19, 2025 0817 hours Comparison February 04, 2025 INDICATIONS: Patient fell with seizures this morning with injury to the head CTDI: vol (mGy):45.6 DLP: (mGycm):894 Technique: Multiple CT axial sections of the brain have been obtained, 5 mm slice thickness. Contrast has not been administered. 2-D sagittal, coronal reconstructions have been obtained Low dose protocols were performed. One or more of the following dose reduction techniques were used; automated exposure control, adjustment of the mA and/or KV according to patient size, use of iterative reconstruction technique. Findings: No significant ventricular enlargement. Intra-axial or extra-axial hemorrhage density is not seen. No mass effect or midline shift Basal cisterns are not remarkable. Fourth ventricle is midline. Cranial vault intact. Impression: Negative for acute hemorrhage, mass effect or midline shift Dictated By: Fermín Stone MD Procedure(s): XR chest 1V portable Accession Number(s): [id number] cc: Jose Chairez MD; Erik Alba MD; Fermín Stone MD~ Examination: AP chest single view TECHNIQUE: AP portable upright chest single view Date and time: April 19, 2025 0802 hours Comparison September 22, 2024 INDICATIONS: Coughing chest pain today. FINDINGS: Normal heart size Lungs are clear. The osseous structures are intact Fracture left clavicle IMPRESSION: No active disease Dictated By: Fermín Stone MD Medications / Prescriptions Medications or Prescriptions considered but not ordered:: none Medication administrations:: Medication Administration History Discontinued Medications Sodium Chloride (Ns) 1,000 mls @ 999 mls/hr IV .Q1H1M ONE Stop: 04/19/25 08:43 Last Infusion: 04/19/25 10:18 Dose: Infused Documented By: Admin: 04/19/25 07:56 Dose: 999 mls/hr Documented By: BIJAN Levetiracetam (Levetiracetam Inj 100 Mg/Ml Vial 5ml) 1,000 mg IVP X1 ONE Stop: 04/19/25 07:44 Last Admin: 04/19/25 07:55 Dose: 1,000 mg Documented By: IBJAN see complete list above Consultations Consultation(s) initiated? (list below): No Diagnosis Seizure Differential Diagnosis: intractable seizure disorder, generalized seizure and epileptic seizure Most likely diagnosis given after review of the tests above:: Seizure Admission Indicated Admission indicated?: not indicated Admission Request Was there a request for admission?: No Disposition Plan Disposition Plan: Discharge Discharge Attestation Discharge Attestation: The patient and all family members were given an opportunity to ask questions and understood the discharge instructions. Discharge instructions specifically effects, indications for sooner follow up or return to the emergency department, and the expected course of current diagnosis. Patient condition: Stable Discharge Plan Plan Patient Disposition: HOME (Self Care) Patient condition on transfer: Stable Prescriptions/Referrals Prescriptions/Med Rec: New levetiracetam [Keppra] 500 mg tablet 500 mg PO BID MDD 2 Qty: 60 5RF No Action levetiracetam [Keppra] 500 mg tablet 500 mg PO BID Qty: 30 0RF levetiracetam [Keppra] 500 mg tablet 500 mg PO BID Qty: 30 0RF levetiracetam [Keppra] 500 mg tablet 500 mg PO BID Qty: 60 0RF levetiracetam [Keppra] 500 mg tablet 500 mg PO BID Qty: 20 0RF levetiracetam [Keppra] 500 mg tablet 500 mg PO BID Qty: 20 0RF levetiracetam [Keppra] 500 mg tablet 500 mg PO BID Qty: 20 0RF levetiracetam [Keppra] 500 mg tablet 500 mg PO BID Qty: 30 0RF levetiracetam [Keppra] 500 mg tablet 500 mg PO BID Qty: 60 0RF levetiracetam 500 mg tablet 500 mg PO TID Qty: 90 0RF levetiracetam [Keppra] 500 mg tablet 500 mg PO BID Qty: 30 0RF levetiracetam [Keppra] 500 mg tablet 500 mg PO BID Qty: 60 0RF Problem List Clinical Impression: Seizure Patient/Caregiver Discharge Instructions Education Materials: ED Seizure, Recurrent (Adult) Additional Instructions: Please follow-up with your primary care physician within 2-3 days. Return to the Emergency Department as needed. Print Language: Romanian Stand Alone Forms: Linda Award Info., Patient Portal Info Letter
[2025-04-19] MEDS: levETIRAcetam INJ 100 MG/ML VIAL 5ML 1000 MG IVP (07:55)
[2025-04-19] MEDS: SODIUM CHLORIDE 0.9% 1000 ML 1,000 ML 999 ML IV (07:56)
[2025-04-19 08:25] LABS: Basophils % (Auto) 1 % (0-2.5); Eosinophils % (Auto) 0 % (0-10); Hematocrit 36.7 % (41.0-53.0); Hemoglobin 12.7 g/dL (13.5-16.0); Immature Granulocytes % (Auto) 0 % (0-0); Immature Granulocytes Auto 0.01 Thou/mm3 (0.00-0.00); Lymphocytes # (Auto) 1.1 Thou/mm3 (1.0-4.8); Lymphocytes % (Auto) 24 % (10-50); Mean Corpuscular HGB Conc 34.6 g/dl (31.0-37.0); Mean Corpuscular Hemoglobin 33.5 pg (25.0-35.0); Mean Corpuscular Volume 97 fL (80-100); Monocytes # (Auto) 0.4 Thou/mm3 (0.0-0.8); Monocytes % (Auto) 10 % (0-12); Neutrophils # (Auto) 2.8 Thou/mm3 (1.8-7.7); Neutrophils % (Auto) 65 % (37-80); Nucleated Red Blood Cell % 0 /100 WBC (0); Platelet Count 129 Thou/mm3 (140-440); RDW Standard Deviation 50.2 fL (35.1-43.9); Red Blood Count 3.79 Miln/mm3 (4.50-5.90); White Blood Count 4.4 Thou/mm3 (3.8-10.6)
[2025-04-19 08:46] LABS: Alanine Aminotransferase 124 U/L (10-49); Albumin, Serum 3.5 gm/dL (3.4-4.8); Albumin/Globulin Ratio 0.9 (1.2-2.2); Alkaline Phosphatase 192 U/L (46-116); Anion Gap 6 (7-16); Aspartate Amino Transferase 197 U/L (0-34); BUN/Creatinine Ratio 13 Ratio (12-20); Bilirubin,Total 0.9 mg/dL (0.3-1.2); Blood Urea Nitrogen 8 mg/dL (9-23); Calcium 8.3 mg/dL (8.3-10.6); Calcium (Corrected) 8.7 mg/dL (8.5-10.1); Carbon Dioxide 29.3 mMol/L (20.0-31.0); Chloride 104 mMol/L (98-107); Creatinine (Component) 0.6 mg/dL (0.6-1.3); Estimated Creatinine Clearance 113.2 mL/min (>60); Globulin 3.9 gm/dL (2.3-3.5); Glucose 107 mg/dL (74-106); Magnesium 1.9 mg/dL (1.6-2.6); Osmolality,Calculated 275 (275-295); Potassium 4.6 mMol/L (3.4-5.1); Sodium 139 mMol/L (136-145); Total Protein 7.4 gm/dL (5.7-8.2); eGFR > 60 See Note
[2025-04-19 09:15] VITALS: BP 147/71; PULSE 61; RESP 20; TEMP 36.1; O2SAT 98
[2025-04-19 10:18] VITALS: BP 144/80; PULSE 65; RESP 19; O2SAT 97
== END 2025-04-19 10:22 | disposition home or self-care (01) ==
PROVIDERS: Emergency Provider Family Medicine; PCP Family Medicine
DX: R56.9 Unspecified convulsions (principal); S42.002A Fracture of unspecified part of left clavicle, initial encounter for closed fracture; X58.XXXA Exposure to other specified factors, initial encounter
CPT/HCPCS: 36415; 70450; 71045; 80053; 83735; 85025; 93005; 96361; 96374; 99284; J1953; J7030

== ENCOUNTER 2025-04-29 09:53 | Emergency (ER) | payer MEDICAID, SELFPAY ==
[2025-04-29 10:02] VITALS: PULSE 80; RESP 18; O2SAT 90
[2025-04-29 10:04] VITALS: BP 134/73; PULSE 76; RESP 19; TEMP 36.4; O2SAT 99
[2025-04-29 10:05] VITALS: BMI 27.3
--- NOTE | 2025-04-29 10:32 | XR_ITS ---
Examination: AP chest single view Technique one AP portable upright chest single view Date and time: April 29, 2025, 1035 hrs. Indications: Chest pain shortness of breath beginning today. Findings: Normal heart size Prominent central pulmonary arteries. No lobar pneumonia or pulmonary edema Impression: Suspicious for pulmonary artery hypertension
--- NOTE | 2025-04-29 10:32 | EKG_ITS ---
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
--- NOTE | 2025-04-29 10:34 | PD.EDSEIZ ---
ED Seizures RME/HPI General Chief Complaint: Seizure Stated Complaint: SEIZURE Time Seen by Provider: 04/29/25 10:10 Arrival date/time: 04/29/25 09:53 Limitations: no limitations RME / HPI RME / HPI Narrative: DR. CHAIREZ MAIN ED EVALUATION: 65 year old male presents to the Emergency Department [facility] with complaint of seizure prior to arrival. His seizure was witness lasting a couple minutes, tonic/ clonic seizure. Patient has history of seizures but has been off his medications for a while. He states that he stays in a fci and is homeless; he has a family member that usually gives him his medications but has not taken them for a while. No headache, injuries, or other complaints. Related Data Previous Rx's ?Medication ?Instructions ?Recorded levetiracetam 500 mg tablet 500 mg PO BID #30 tabs 10/20/22 (Keppra) levetiracetam 500 mg tablet 500 mg PO BID #60 tabs 02/25/23 (Keppra) levetiracetam 500 mg tablet 500 mg PO BID #30 tabs 08/17/23 (Keppra) levetiracetam 500 mg tablet 500 mg PO BID #30 tabs 12/28/23 (Keppra) levetiracetam 500 mg tablet 500 mg PO TID #90 tabs 02/29/24 levetiracetam 500 mg tablet 500 mg PO BID #60 tabs 03/22/24 (Keppra) levetiracetam 500 mg tablet 500 mg PO BID #30 tabs 07/04/24 (Keppra) levetiracetam 500 mg tablet 500 mg PO BID #20 tabs 07/11/24 (Keppra) levetiracetam 500 mg tablet 500 mg PO BID #60 tabs 09/17/24 (Keppra) levetiracetam 500 mg tablet 500 mg PO BID #20 tabs 09/29/24 (Keppra) levetiracetam 500 mg tablet 500 mg PO BID #20 tabs 12/16/24 (Keppra) levetiracetam 500 mg tablet 500 mg PO BID seizure #60 tabs 04/19/25 (Keppra) levetiracetam 500 mg tablet 500 mg PO BID SEIZURE DISORDER #90 04/29/25 (Keppra) tabs Allergies Allergy/AdvReac Type Severity Reaction Status Date / Time No Known Allergies Allergy Verified 04/29/25 10:06 Review of Systems Review of Systems Systems Reviewed: All systems reviewed, normal except as documented Past Medical History Past Medical History NEUROLOGIC: Positive Neurological Disorders and Seizures CARDIAC: Positive Hypertension PSYCHO/SOCIAL: Positive Recreational Drug Use Family History FAMILY HISTORY: Positive Family Cardiac Disorders Surgical History SURGICAL: Positive Abdominal Surgery Social History SMOKING STATUS: Current every day smoker SECOND HAND EXPOSURE: No SUBSTANCE USE: marijuana and methamphetamine ED Exam General Limitations: Present no limitations General appearance: Present alert and in no apparent distress Head Head exam: Present atraumatic, normocephalic and normal inspection Eye Eye exam: Present normal appearance, PERRL and EOMI ENT ENT exam: Present normal exam, normal oropharynx and mucous membranes moist Neck Neck exam: Present normal inspection, full ROM and trachea midline Chest Chest inspection: Present normal inspection and symmetric chest wall rise Respiratory Respiratory exam: Present normal lung sounds bilaterally Cardiovascular Cardiovascular exam: Present regular rate, normal rhythm and normal heart sounds Abdominal Exam Abdominal exam: Present soft and normal bowel sounds Extremities Exam Extremities exam: Present normal inspection and full ROM Back Exam Back exam: Present normal inspection and full ROM Neurological Exam Neurological exam: Present alert, oriented X3 and CN II-XII intact Psychiatric Psychiatric exam: Present normal affect and normal mood Skin Skin exam: Present warm, dry, intact and normal color Course Quality Measures none Orders Category Date Time Status Project Control Manager NOW Care 04/29/25 10:32 Active Continuous Pulse Oximetry NOW Care 04/29/25 10:32 Completed EKG (ED ONLY) *Do not use* NOW Care 04/29/25 10:32 Completed Insert IV NOW Care 04/29/25 10:32 Active EKG (ED Only) Stat Exams 04/29/25 10:32 Draft XR chest 1V portable Stat Exams 04/29/25 10:32 Completed CBC Stat Lab 04/29/25 10:52 Completed Comprehensive Metabolic Panel Stat Lab 04/29/25 10:52 Completed Prothrombin Time with INR Stat Lab 04/29/25 10:52 Completed Sodium Chloride 0.9% 1000 ml [Ns] 1,000 ml Med 04/29/25 10:31 Discontinued IV 999 mls/hr levETIRAcetam INJ [Keppra Inj] Med 04/29/25 10:31 Discontinued 1,000 mg IVP X1 ONE Vital Signs Vital signs: Vital Signs Temperature 97.6 F 04/29/25 10:04 Pulse Rate 76 04/29/25 10:04 Respiratory Rate 19 04/29/25 10:04 Blood Pressure 134/73 H 04/29/25 10:04 Pulse Oximetry (%) 99 04/29/25 10:04 Oxygen Delivery Method Room Air 04/29/25 10:04 Seizure MDM Narrative MDM Narrative:: INicki am scribing for and in the presence of Dr. Chairez. Patient data External records reviewed:: [facility] previous records and EMS form Clinical information provided by:: patient and EMS Social determinants that could affect healthcare access:: housing (homeless, lives in a fci) Patient has the following chronic illnesses:: Seizures How is presenting disease/condition affected by chronic disease/condition?: caused by Evaluation data The following diagnostics were reviewed and interpreted by me:: lab results, radiology exam(s) and EKG tracing(s) (My interpretation: EKG performed at 1039 hours, sinus rhythm, rate 64, no acute changes, no STEMI) Lab and/or radiology exams considered but not ordered:: none Interpretation Summary: Procedure(s): XR chest 1V portable Accession Number(s): [id number] cc: Jose Chairez MD; Fermín Stone MD~ Examination: AP chest single view Technique one AP portable upright chest single view Date and time: April 29, 2025, 1035 hrs. Indications: Chest pain shortness of breath beginning today. Findings: Normal heart size Prominent central pulmonary arteries. No lobar pneumonia or pulmonary edema Impression: Suspicious for pulmonary artery hypertension Dictated By: Fermín Stone MD Medications / Prescriptions Medications or Prescriptions considered but not ordered:: none Medication administrations:: Medication Administration History Discontinued Medications Sodium Chloride (Ns) 1,000 mls @ 999 mls/hr IV .Q1H1M ONE Stop: 04/29/25 11:31 Last Infusion: 04/29/25 11:56 Dose: Infused Documented By: Admin: 04/29/25 10:55 Dose: 999 mls/hr Documented By: DO Levetiracetam (Levetiracetam Inj 100 Mg/Ml Vial 5ml) 1,000 mg IVP X1 ONE Stop: 04/29/25 10:32 Last Admin: 04/29/25 10:55 Dose: 1,000 mg Documented By: DO see above Consultations Consultation(s) initiated? (list below): No Diagnosis Seizure Differential Diagnosis: intractable seizure disorder, focal seizure and generalized seizure Most likely diagnosis given after review of the tests above:: Seizure Admission Indicated Admission indicated?: not indicated Admission Request Was there a request for admission?: No Disposition Plan Disposition Plan: Discharge Discharge Attestation Discharge Attestation: The patient and all family members were given an opportunity to ask questions and understood the discharge instructions. Discharge instructions specifically effects, indications for sooner follow up or return to the emergency department, and the expected course of current diagnosis. Patient condition: Stable Discharge Plan Plan Patient Disposition: HOME (Self Care) Patient condition on transfer: Stable Prescriptions/Referrals Prescriptions/Med Rec: New levetiracetam [Keppra] 500 mg tablet 500 mg PO BID MDD 2 Qty: 90 3RF No Action levetiracetam [Keppra] 500 mg tablet 500 mg PO BID Qty: 30 0RF levetiracetam [Keppra] 500 mg tablet 500 mg PO BID Qty: 30 0RF levetiracetam [Keppra] 500 mg tablet 500 mg PO BID Qty: 60 0RF levetiracetam [Keppra] 500 mg tablet 500 mg PO BID Qty: 20 0RF levetiracetam [Keppra] 500 mg tablet 500 mg PO BID Qty: 20 0RF levetiracetam [Keppra] 500 mg tablet 500 mg PO BID Qty: 20 0RF levetiracetam [Keppra] 500 mg tablet 500 mg PO BID Qty: 30 0RF levetiracetam [Keppra] 500 mg tablet 500 mg PO BID Qty: 60 0RF levetiracetam 500 mg tablet 500 mg PO TID Qty: 90 0RF levetiracetam [Keppra] 500 mg tablet 500 mg PO BID Qty: 30 0RF levetiracetam [Keppra] 500 mg tablet 500 mg PO BID Qty: 60 0RF levetiracetam [Keppra] 500 mg tablet 500 mg PO BID MDD 2 Qty: 60 5RF Referrals: Erik Alba MD [Primary Care Provider] - In 1 week Problem List Clinical Impression: Seizure Patient/Caregiver Discharge Instructions Education Materials: ED Seizure, Recurrent (Adult) Additional Instructions: Please follow-up with your primary care physician within 2-3 days. Return to the Emergency Department as needed. Print Language: Egyptian Stand Alone Forms: Linda Award Info., Patient Portal Info Letter
[2025-04-29] MEDS: SODIUM CHLORIDE 0.9% 1000 ML 1,000 ML 999 ML IV (10:55)
[2025-04-29] MEDS: levETIRAcetam INJ 100 MG/ML VIAL 5ML 1000 MG IVP (10:55)
[2025-04-29 11:03] LABS: Basophils # (Auto) 0.0 Thou/mm3 (0.0-0.2); Basophils % (Auto) 1 % (0-2.5); Eosinophils # (Auto) 0.0 Thou/mm3 (0.0-0.5); Eosinophils % (Auto) 0 % (0-10); Hematocrit 36.9 % (41.0-53.0); Hemoglobin 12.7 g/dL (13.5-16.0); Immature Granulocytes Auto 0.01 Thou/mm3 (0.00-0.00); Lymphocytes # (Auto) 0.9 Thou/mm3 (1.0-4.8); Lymphocytes % (Auto) 21 % (10-50); Mean Corpuscular HGB Conc 34.4 g/dl (31.0-37.0); Mean Corpuscular Hemoglobin 33.3 pg (25.0-35.0); Mean Corpuscular Volume 97 fL (80-100); Monocytes # (Auto) 0.4 Thou/mm3 (0.0-0.8); Monocytes % (Auto) 9 % (0-12); Neutrophils # (Auto) 3.1 Thou/mm3 (1.8-7.7); Neutrophils % (Auto) 69 % (37-80); Nucleated Red Blood Cell # 0.00 Thou/mm3 (0.00-0.00); Nucleated Red Blood Cell % 0 /100 WBC (0); Platelet Count 144 Thou/mm3 (140-440); RDW Standard Deviation 48.0 fL (35.1-43.9); Red Blood Count 3.81 Miln/mm3 (4.50-5.90); White Blood Count 4.5 Thou/mm3 (3.8-10.6)
[2025-04-29 11:16] LABS: INR 1.1 (0.9-1.3); Prothrombin Time 12.3 Seconds (9.0-12.2)
[2025-04-29 11:25] LABS: Alanine Aminotransferase 125 U/L (10-49); Albumin, Serum 3.2 gm/dL (3.4-4.8); Albumin/Globulin Ratio 0.8 (1.2-2.2); Alkaline Phosphatase 201 U/L (46-116); Anion Gap 4 (7-16); Aspartate Amino Transferase 189 U/L (0-34); BUN/Creatinine Ratio 20 Ratio (12-20); Bilirubin,Total 0.7 mg/dL (0.3-1.2); Blood Urea Nitrogen 14 mg/dL (9-23); Calcium 8.3 mg/dL (8.3-10.6); Calcium (Corrected) 8.9 mg/dL (8.5-10.1); Carbon Dioxide 29.1 mMol/L (20.0-31.0); Chloride 108 mMol/L (98-107); Creatinine (Component) 0.7 mg/dL (0.6-1.3); Estimated Creatinine Clearance 104.5 mL/min (>60); Globulin 4.1 gm/dL (2.3-3.5); Glucose 95 mg/dL (74-106); Osmolality,Calculated 281 (275-295); Potassium 4.2 mMol/L (3.4-5.1); Sodium 141 mMol/L (136-145); Total Protein 7.3 gm/dL (5.7-8.2); eGFR > 60 See Note
[2025-04-29 15:19] VITALS: BP 126/75; PULSE 51; RESP 17; O2SAT 99
== END 2025-04-29 15:20 | disposition home or self-care (01) ==
PROVIDERS: Emergency Provider Family Medicine; PCP Family Medicine
DX: R56.9 Unspecified convulsions (principal); R07.9 Chest pain, unspecified; R06.02 Shortness of breath; I10 Essential (primary) hypertension; F17.210 Nicotine dependence, cigarettes, uncomplicated; Z59.01 Sheltered homelessness
CPT/HCPCS: 36415; 71045; 80053; 85025; 85610; 96361; 96374; 99284; J1953; J7030

== ENCOUNTER 2025-05-05 09:04 | Emergency (ER) | payer MEDICAID, SELFPAY ==
[2025-05-05 09:06] VITALS: BP 124/77; PULSE 80; RESP 18; TEMP 36.6; O2SAT 97
[2025-05-05 09:11] VITALS: PULSE 79; RESP 18; O2SAT 99; BMI 21.6
--- NOTE | 2025-05-05 09:11 | EKG_ITS ---
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
--- NOTE | 2025-05-05 09:38 | PD.EDADULT ---
ED General RME/HPI General Chief complaint: Seizure Stated complaint: SEIZURES Time Seen by Provider: 05/05/25 09:37 Arrival date/time: 05/05/25 09:04 RME / HPI RME / HPI narrative: see MDM Related Data Previous Rx's ?Medication ?Instructions ?Recorded levetiracetam 500 mg tablet 500 mg PO BID #30 tabs 10/20/22 (Keppra) levetiracetam 500 mg tablet 500 mg PO BID #60 tabs 02/25/23 (Keppra) levetiracetam 500 mg tablet 500 mg PO BID #30 tabs 08/17/23 (Keppra) levetiracetam 500 mg tablet 500 mg PO BID #30 tabs 12/28/23 (Keppra) levetiracetam 500 mg tablet 500 mg PO TID #90 tabs 02/29/24 levetiracetam 500 mg tablet 500 mg PO BID #60 tabs 03/22/24 (Keppra) levetiracetam 500 mg tablet 500 mg PO BID #30 tabs 07/04/24 (Keppra) levetiracetam 500 mg tablet 500 mg PO BID #20 tabs 07/11/24 (Keppra) levetiracetam 500 mg tablet 500 mg PO BID #60 tabs 09/17/24 (Keppra) levetiracetam 500 mg tablet 500 mg PO BID #20 tabs 09/29/24 (Keppra) levetiracetam 500 mg tablet 500 mg PO BID #20 tabs 12/16/24 (Keppra) levetiracetam 500 mg tablet 500 mg PO BID seizure #60 tabs 04/19/25 (Keppra) levetiracetam 500 mg tablet 500 mg PO BID SEIZURE DISORDER #90 04/29/25 (Keppra) tabs Allergies Allergy/AdvReac Type Severity Reaction Status Date / Time No Known Allergies Allergy Verified 04/29/25 10:06 Review of Systems Review of Systems Systems Reviewed: All systems reviewed, normal except as documented ED Exam Narrative Physical exam: Physical Exam GENERAL: NAD, AAOx3 HEENT: Moist mucosa. Eyes open, symmetrical, & clear CARDIO: Heart RRR, no obvious murmurs PULM: No noted coughing/dyspnea CTA B/L, no R/W/R GI: Abdomen soft, nondistended, no pain on palpation. BSx4 SKIN/MSK/EXT: No wounds/rashes/edema/amputations, no pain on palpation. Pedal pulses present B/L NEURO: AAOx3, no focal neuro deficits, able to move all 4 extremities Course Course Course Narrative: see MDM Quality Measures none Orders Category Date Time Status EKG (ED ONLY) *Do not use* NOW Care 05/05/25 09:[address] head/brain wo con Stat Exams 05/05/25 10:32 Completed EKG (ED Only) Stat Exams 05/05/25 09:11 Draft CBC Stat Lab 05/05/25 10:48 Completed CMP [Comprehensive Metabolic Panel] Stat Lab 05/05/25 10:48 Completed Lactic Acid [Lactate (Lactic Acid)] Stat Lab 05/05/25 10:48 Completed levETIRAcetam INJ [Keppra Inj] Med 05/05/25 09:37 Discontinued 1,000 mg IVP X1 ONE Vital Signs Vital signs: Vital Signs Temperature 97.9 F 05/05/25 09:06 Pulse Rate 80 05/05/25 09:06 Respiratory Rate 18 05/05/25 09:06 Blood Pressure 124/77 05/05/25 09:06 Pulse Oximetry (%) 97 05/05/25 09:06 Oxygen Delivery Method Room Air 05/05/25 09:06 Discharge Plan Plan Patient Disposition: HOME (Self Care) Prescriptions/Referrals Prescriptions/Med Rec: No Action levetiracetam [Keppra] 500 mg tablet 500 mg PO BID Qty: 30 0RF levetiracetam [Keppra] 500 mg tablet 500 mg PO BID Qty: 30 0RF levetiracetam [Keppra] 500 mg tablet 500 mg PO BID Qty: 60 0RF levetiracetam [Keppra] 500 mg tablet 500 mg PO BID Qty: 20 0RF levetiracetam [Keppra] 500 mg tablet 500 mg PO BID Qty: 20 0RF levetiracetam [Keppra] 500 mg tablet 500 mg PO BID Qty: 20 0RF levetiracetam [Keppra] 500 mg tablet 500 mg PO BID MDD 2 Qty: 90 3RF levetiracetam [Keppra] 500 mg tablet 500 mg PO BID Qty: 30 0RF levetiracetam [Keppra] 500 mg tablet 500 mg PO BID Qty: 60 0RF levetiracetam 500 mg tablet 500 mg PO TID Qty: 90 0RF levetiracetam [Keppra] 500 mg tablet 500 mg PO BID Qty: 30 0RF levetiracetam [Keppra] 500 mg tablet 500 mg PO BID Qty: 60 0RF levetiracetam [Keppra] 500 mg tablet 500 mg PO BID MDD 2 Qty: 60 5RF Referrals: Erik Alba MD [Primary Care Provider] - In 1 week Problem List Clinical Impression: Nonadherence to medication, Seizure, Head injury Patient/Caregiver Discharge Instructions Additional Instructions: Follow up with your primary care physician within 1 week of discharge Make sure you take your seizure medications as prescribed Should any symptoms recur or worsen patient is instructed to return to the ED. Print Language: Spanish Stand Alone Forms: Linda Award Info., Patient Portal Info Letter MD Attestation Attestation I, Rito Jarrett MD, have reviewed the history, exam, and assessment of the patient. I have evaluated the patient independently and agree with the plan of care documented by [ ]. All diagnostic studies were reviewed and discussed. I confirm the diagnosis as documented by the Resident. I was present during the Medical Decision Making for this patient. The patient's plan of care was created between myself and the Resident and consistent with our discussion of the patient's case. Patient is 65-year-old with a known seizure disorder [place] the park today had a seizure and he was facedown on the ground with abrasion to his forehead and a small chevron shaped laceration minimally gaping. He was loaded with Keppra and tolerated it well and the wound was Steri-Stripped. Patient was able to ambulate on his own advised to follow-up with his doctor can always take his seizure medicines. Unfortunate has a long history of noncompliance with follow-up. MDM Narrative MDM hospital course: 65-year-old male with past medical history of seizure disorder who was brought here by EMS to the ER due to breakthrough seizure. Patient has ran out of his medication for a while per EMS was at the park and suddenly developed a seizure and hit his face of the floor. 0937: 1000 mg of Keppra ordered, CT head, labs ordered 1230: Head CT negative for any hemorrhage, mass effect, or midline shift, Head abrasion cleaned and steri-strip placed Patient was able to ambulate with stable vital signs, patient instructed to take his medications as prescribed. Patient instructed should his symptoms recur or worsen patient is instructed to return to the ED. Clinical Information Provided by patient and EMS Medical Records Reviewed [facility] Chronic Illness/Social Conditions which may negatively complicate care or outcome(s)-explain: None or not applicable EKG EKG not done Lab Interpretation Labs: interpreted by nh Lab(s) interpretation(s): CBC unremarkable, CMP noted to have elevated liver enzymes, however this is chronic for him, lactic acid elevated likely secondary to seizures. Imaging Imaging interpretation: none Medication Administration(s) Medication Administration History Discontinued Medications Levetiracetam (Levetiracetam Inj 100 Mg/Ml Vial 5ml) 1,000 mg IVP X1 ONE Stop: 05/05/25 09:38 Last Admin: 05/05/25 09:47 Dose: 1,000 mg Documented By: DB see above Diagnosis Differential diagnosis: medication non-compliance, breakthrough seizures, status epilepticus Differential dx and/or dx ruled out: Most likely dx, and/or detailed dx discussion: seizure in the setting of medication non-compliance Dispositon Disposition: Discharge Home
[2025-05-05] MEDS: levETIRAcetam INJ 100 MG/ML VIAL 5ML 1000 MG IVP (09:47)
[2025-05-05 10:25] VITALS: BP 152/79; PULSE 65; RESP 16; TEMP 36.7; O2SAT 96
--- NOTE | 2025-05-05 10:32 | XR_ITS ---
Examination: CT brain head without contrast. 2-D sagittal coronal reconstructions Date and time of exam:May 05, 2025 1126 hours INDICATIONS: Seizures with fall today CTDI: vol (mGy):44.7 DLP: (mGycm):933 Technique: Multiple CT axial sections of the brain have been obtained, 5 mm slice thickness. Contrast has not been administered. 2-D sagittal, coronal reconstructions have been obtained Low dose protocols were performed. One or more of the following dose reduction techniques were used; automated exposure control, adjustment of the mA and/or KV according to patient size, use of iterative reconstruction technique. Findings: No significant ventricular enlargement. Mild scalp frontal swelling Intra-axial or extra-axial hemorrhage density is not seen. No mass effect or midline shift Basal cisterns are not remarkable. Fourth ventricle is midline. Cranial vault intact. Impression: Negative for acute hemorrhage, mass effect or midline shift
[2025-05-05 10:55] LABS: Lactate (Lactic Acid) 2.2 mMol/L (0.4-2.0)
[2025-05-05 10:56] LABS: Basophils # (Auto) 0.0 Thou/mm3 (0.0-0.2); Basophils % (Auto) 1 % (0-2.5); Eosinophils # (Auto) 0.0 Thou/mm3 (0.0-0.5); Eosinophils % (Auto) 0 % (0-10); Hematocrit 37.8 % (41.0-53.0); Hemoglobin 13.4 g/dL (13.5-16.0); Immature Granulocytes Auto 0.02 Thou/mm3 (0.00-0.00); Lymphocytes # (Auto) 1.0 Thou/mm3 (1.0-4.8); Lymphocytes % (Auto) 20 % (10-50); Mean Corpuscular HGB Conc 35.4 g/dl (31.0-37.0); Mean Corpuscular Hemoglobin 33.8 pg (25.0-35.0); Mean Corpuscular Volume 96 fL (80-100); Monocytes # (Auto) 0.5 Thou/mm3 (0.0-0.8); Monocytes % (Auto) 9 % (0-12); Neutrophils # (Auto) 3.5 Thou/mm3 (1.8-7.7); Neutrophils % (Auto) 70 % (37-80); Nucleated Red Blood Cell # 0.00 Thou/mm3 (0.00-0.00); Nucleated Red Blood Cell % 0 /100 WBC (0); Platelet Count 151 Thou/mm3 (140-440); RDW Standard Deviation 47.1 fL (35.1-43.9); Red Blood Count 3.96 Miln/mm3 (4.50-5.90); White Blood Count 5.1 Thou/mm3 (3.8-10.6)
[2025-05-05 11:16] LABS: Alanine Aminotransferase 127 U/L (10-49); Albumin, Serum 3.4 gm/dL (3.4-4.8); Albumin/Globulin Ratio 0.9 (1.2-2.2); Alkaline Phosphatase 142 U/L (46-116); Anion Gap 7 (7-16); Aspartate Amino Transferase 192 U/L (0-34); BUN/Creatinine Ratio 23 Ratio (12-20); Bilirubin,Total 1.0 mg/dL (0.3-1.2); Blood Urea Nitrogen 16 mg/dL (9-23); Calcium 8.7 mg/dL (8.3-10.6); Calcium (Corrected) 9.2 mg/dL (8.5-10.1); Carbon Dioxide 28.0 mMol/L (20.0-31.0); Chloride 105 mMol/L (98-107); Creatinine (Component) 0.7 mg/dL (0.6-1.3); Estimated Creatinine Clearance 90.1 mL/min (>60); Globulin 4.0 gm/dL (2.3-3.5); Glucose 91 mg/dL (74-106); Osmolality,Calculated 280 (275-295); Potassium 4.2 mMol/L (3.4-5.1); Sodium 140 mMol/L (136-145); Total Protein 7.4 gm/dL (5.7-8.2); eGFR > 60 See Note
--- NOTE | 2025-05-05 13:00 | PC.NURSE ---
patient got out of bed and was ambulating around the ER with a steady GAIT DR Arango made aware, said it was ok to discharge pt
[2025-05-05 13:18] VITALS: BP 138/85; PULSE 61; RESP 16; TEMP 36.2; O2SAT 96
[2025-05-05 13:51] LABS: Reflex Lactate? Y
== END 2025-05-05 13:23 | disposition home or self-care (01) ==
PROVIDERS: Emergency Provider Student in an Organized Health Care Education/Training Program; PCP Family Medicine
DX: R56.9 Unspecified convulsions (principal); G40.909 Epilepsy, unspecified, not intractable, without status epilepticus; Z91.148 Patient's other noncompliance with medication regimen for other reason
CPT/HCPCS: 36415; 70450; 80053; 83605; 85025; 96372; 96374; 99283; J1953

== ENCOUNTER 2025-05-12 10:15 | Emergency (ER) | payer MEDICAID, SELFPAY ==
--- NOTE | 2025-05-12 10:19 | EKG_ITS ---
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
[2025-05-12 10:21] VITALS: BMI 19.3
[2025-05-12 10:25] VITALS: BP 155/82; PULSE 75; RESP 18; TEMP 36.7; O2SAT 96
[2025-05-12 10:28] VITALS: BP 155/82; PULSE 79; RESP 20; TEMP 36.2; O2SAT 95
--- NOTE | 2025-05-12 10:32 | PD.EDSEIZ ---
ED Seizures RME/HPI General Chief Complaint: Altered Mental Status Stated Complaint: SEIZURE Time Seen by Provider: 05/12/25 10:38 Arrival date/time: 05/12/25 10:15 Limitations: no limitations RME / HPI RME / HPI Narrative: DR. PARHAM MAIN ED EVALUATION: 65 year old male presents to the Emergency Department with complaint of a seizure episode today. He has a known history of seizure disorder but denies currently taking any antiepileptic medications. He reports occasional alcohol use. On further questioning, patient states he fell two days ago, striking his head; he now has two healing scabs on his forehead, but no visible edema or erythema. He denies any loss of consciousness at the time of the fall. No other associated symptoms reported at this time. No known allergies. Related Data Previous Rx's ?Medication ?Instructions ?Recorded levetiracetam 500 mg tablet 500 mg PO BID #30 tabs 10/20/22 (Keppra) levetiracetam 500 mg tablet 500 mg PO BID #60 tabs 02/25/23 (Keppra) levetiracetam 500 mg tablet 500 mg PO BID #30 tabs 08/17/23 (Keppra) levetiracetam 500 mg tablet 500 mg PO BID #30 tabs 12/28/23 (Keppra) levetiracetam 500 mg tablet 500 mg PO TID #90 tabs 02/29/24 levetiracetam 500 mg tablet 500 mg PO BID #60 tabs 03/22/24 (Keppra) levetiracetam 500 mg tablet 500 mg PO BID #30 tabs 07/04/24 (Keppra) levetiracetam 500 mg tablet 500 mg PO BID #20 tabs 07/11/24 (Keppra) levetiracetam 500 mg tablet 500 mg PO BID #60 tabs 09/17/24 (Keppra) levetiracetam 500 mg tablet 500 mg PO BID #20 tabs 09/29/24 (Keppra) levetiracetam 500 mg tablet 500 mg PO BID #20 tabs 12/16/24 (Keppra) levetiracetam 500 mg tablet 500 mg PO BID seizure #60 tabs 04/19/25 (Keppra) levetiracetam 500 mg tablet 500 mg PO BID SEIZURE DISORDER #90 04/29/25 (Keppra) tabs Allergies Allergy/AdvReac Type Severity Reaction Status Date / Time No Known Allergies Allergy Verified 05/12/25 10:27 Review of Systems Review of Systems Systems Reviewed: All systems reviewed, normal except as documented Past Medical History Past Medical History NEUROLOGIC: Positive Neurological Disorders and Seizures CARDIAC: Positive Hypertension PSYCHO/SOCIAL: Positive Recreational Drug Use Family History FAMILY HISTORY: Positive Family Cardiac Disorders Surgical History SURGICAL: Positive Abdominal Surgery Social History SMOKING STATUS: Former smoker SECOND HAND EXPOSURE: No SUBSTANCE USE: marijuana and methamphetamine ED Exam General Limitations: Present no limitations General appearance: Present alert and in no apparent distress Head Head exam: Present other (two healing scabs on his forehead, but no visible edema or erythema) Eye Eye exam: Present normal appearance, PERRL and EOMI ENT ENT exam: Present normal exam, normal oropharynx and mucous membranes moist Neck Neck exam: Present normal inspection, full ROM and trachea midline Chest Chest inspection: Present normal inspection and symmetric chest wall rise Respiratory Respiratory exam: Present normal lung sounds bilaterally Cardiovascular Cardiovascular exam: Present regular rate, normal rhythm and normal heart sounds Abdominal Exam Abdominal exam: Present soft and normal bowel sounds Extremities Exam Extremities exam: Present normal inspection and full ROM Back Exam Back exam: Present normal inspection and full ROM Neurological Exam Neurological exam: Present alert, oriented X3 and CN II-XII intact Psychiatric Psychiatric exam: Present normal affect and normal mood Skin Skin exam: Present warm, dry, intact and normal color Course Quality Measures none Orders Category Date Time Status Environmental Manager NOW Care 05/12/25 10:40 Active Continuous Pulse Oximetry NOW Care 05/12/25 10:40 Completed EKG (ED ONLY) *Do not use* NOW Care 05/12/25 10:19 Completed Insert IV NOW Care 05/12/25 10:[address] head/brain wo con Stat Exams 05/12/25 10:40 Completed EKG (ED Only) Stat Exams 05/12/25 10:19 Draft XR chest 1V portable Stat Exams 05/12/25 10:40 Completed CBC Stat Lab 05/12/25 11:22 Completed Comprehensive Metabolic Panel Stat Lab 05/12/25 11:22 Completed Partial Thromboplastin Time Stat Lab 05/12/25 11:22 Completed Prothrombin Time with INR Stat Lab 05/12/25 11:22 Completed Urinalysis Stat Lab 05/12/25 10:40 Ordered Sodium Chloride 0.9% 1000 ml [Ns] 1,000 ml Med 05/12/25 10:40 Active IV 100 mls/hr levETIRAcetam INJ [Keppra Inj] Med 05/12/25 10:40 Discontinued 500 mg IVP X1 ONE Oxygen Delivery NOW RT 05/12/25 10:40 Active Vital Signs Vital signs: Vital Signs Temperature 98.0 F 05/12/25 10:25 Pulse Rate 75 05/12/25 10:25 Respiratory Rate 18 05/12/25 10:25 Blood Pressure 155/82 H 05/12/25 10:25 Pulse Oximetry (%) 96 05/12/25 10:25 Oxygen Delivery Method Room Air 05/12/25 10:25 Seizure MDM Narrative MDM Narrative:: I, Nicki Hoffman, am scribing for and in the presence of Dr. Parham. Patient data External records reviewed:: [facility] previous records Clinical information provided by:: patient Social determinants that could affect healthcare access:: alcohol use Patient has the following chronic illnesses:: Seizure disorder How is presenting disease/condition affected by chronic disease/condition?: caused by Evaluation data The following diagnostics were reviewed and interpreted by me:: lab results, radiology exam(s) and EKG tracing(s) Lab and/or radiology exams considered but not ordered:: none Interpretation Summary: My interpretation: EKG performed at 1020 hours, sinus rhythm, rate 78, no acute changes, no STEMI Procedure(s): CT head/brain wo con Accession Number(s): [id number] cc: Jose Parham MD; Fermín Stone MD; NO PRIMARY/FAMILY,PHYSICIAN~ Examination: CT brain head without contrast. 2-D sagittal coronal reconstructions Date and time of exam:May 12, 2025 10:50 AM INDICATIONS: Seizures beginning 2 days ago CTDI: vol (mGy):46.5 DLP: (mGycm):919 Technique: Multiple CT axial sections of the brain have been obtained, 5 mm slice thickness. Contrast has not been administered. 2-D sagittal, coronal reconstructions have been obtained Low dose protocols were performed. One or more of the following dose reduction techniques were used; automated exposure control, adjustment of the mA and/or KV according to patient size, use of iterative reconstruction technique. Findings: No significant ventricular enlargement. Intra-axial or extra-axial hemorrhage density is not seen. No mass effect or midline shift Basal cisterns are not remarkable. Fourth ventricle is midline. Cranial vault intact. Impression: Negative for acute hemorrhage, mass effect or midline shift Consider elective brain MRI follow-up, pre and postcontrast, seizure protocol Dictated By: Fermín Stone MD Procedure(s): XR chest 1V portable Accession Number(s): [id number] cc: Jose Parham MD; Fermín Stone MD; NO PRIMARY/FAMILY,PHYSICIAN~ Examination: AP chest single view Technique one AP portable upright chest single view Date and time: May 12, 2025 1105 hours Comparison April 29, 2025 INDICATIONS: Coughing today FINDINGS: Normal heart size. Lungs are clear. Healed fracture left clavicle IMPRESSION: No active disease Dictated By: Fermín Stone MD Medications / Prescriptions Medications or Prescriptions considered but not ordered:: none Medication administrations:: Medication Administration History Sodium Chloride (Ns) 1,000 mls @ 100 mls/hr IV .Q10H ONE Stop: 05/12/25 20:39 Last Admin: 05/12/25 11:43 Dose: 100 mls/hr Documented By: CG Discontinued Medications Levetiracetam (Levetiracetam Inj 100 Mg/Ml Vial 5ml) 500 mg IVP X1 ONE Stop: 05/12/25 10:41 Last Admin: 05/12/25 11:43 Dose: 500 mg Documented By: CG see above Consultations Consultation(s) initiated? (list below): No Diagnosis Seizure Differential Diagnosis: intractable seizure disorder, generalized seizure and epileptic seizure Most likely diagnosis given after review of the tests above:: Recurrent seizures Admission Indicated Admission indicated?: not indicated Admission Request Was there a request for admission?: No Disposition Plan Disposition Plan: Discharge Discharge Attestation Discharge Attestation: The patient and all family members were given an opportunity to ask questions and understood the discharge instructions. Discharge instructions specifically effects, indications for sooner follow up or return to the emergency department, and the expected course of current diagnosis. Patient condition: Stable Discharge Plan Plan Patient Disposition: HOME (Self Care) Patient condition on transfer: Stable Prescriptions/Referrals Prescriptions/Med Rec: No Action levetiracetam [Keppra] 500 mg tablet 500 mg PO BID Qty: 30 0RF levetiracetam [Keppra] 500 mg tablet 500 mg PO BID Qty: 30 0RF levetiracetam [Keppra] 500 mg tablet 500 mg PO BID Qty: 60 0RF levetiracetam [Keppra] 500 mg tablet 500 mg PO BID Qty: 20 0RF levetiracetam [Keppra] 500 mg tablet 500 mg PO BID Qty: 20 0RF levetiracetam [Keppra] 500 mg tablet 500 mg PO BID Qty: 20 0RF levetiracetam [Keppra] 500 mg tablet 500 mg PO BID MDD 2 Qty: 90 3RF levetiracetam [Keppra] 500 mg tablet 500 mg PO BID Qty: 30 0RF levetiracetam [Keppra] 500 mg tablet 500 mg PO BID Qty: 60 0RF levetiracetam 500 mg tablet 500 mg PO TID Qty: 90 0RF levetiracetam [Keppra] 500 mg tablet 500 mg PO BID Qty: 30 0RF levetiracetam [Keppra] 500 mg tablet 500 mg PO BID Qty: 60 0RF levetiracetam [Keppra] 500 mg tablet 500 mg PO BID MDD 2 Qty: 60 5RF Referrals: No Primary/Family,Physician [Primary Care Provider] - In 1 week Problem List Clinical Impression: Recurrent seizures Patient/Caregiver Discharge Instructions Education Materials: ED Seizure, Recurrent (Adult) Additional Instructions: Please continue your medications. Please follow-up with your primary care physician within 2-3 days. Return to the Emergency Department as needed. Print Language: Turkmen Stand Alone Forms: Linda Award Info., Patient Portal Info Letter
[2025-05-12 10:37] VITALS: BP 132/88; PULSE 81; RESP 22; O2SAT 95
--- NOTE | 2025-05-12 10:40 | XR_ITS ---
Examination: CT brain head without contrast. 2-D sagittal coronal reconstructions Date and time of exam:May 12, 2025 10:50 AM INDICATIONS: Seizures beginning 2 days ago CTDI: vol (mGy):46.5 DLP: (mGycm):919 Technique: Multiple CT axial sections of the brain have been obtained, 5 mm slice thickness. Contrast has not been administered. 2-D sagittal, coronal reconstructions have been obtained Low dose protocols were performed. One or more of the following dose reduction techniques were used; automated exposure control, adjustment of the mA and/or KV according to patient size, use of iterative reconstruction technique. Findings: No significant ventricular enlargement. Intra-axial or extra-axial hemorrhage density is not seen. No mass effect or midline shift Basal cisterns are not remarkable. Fourth ventricle is midline. Cranial vault intact. Impression: Negative for acute hemorrhage, mass effect or midline shift Consider elective brain MRI follow-up, pre and postcontrast, seizure protocol
--- NOTE | 2025-05-12 10:40 | XR_ITS ---
Examination: AP chest single view Technique one AP portable upright chest single view Date and time: May 12, 2025 1105 hours Comparison April 29, 2025 INDICATIONS: Coughing today FINDINGS: Normal heart size. Lungs are clear. Healed fracture left clavicle IMPRESSION: No active disease
[2025-05-12 11:00] VITALS: BP 129/79; PULSE 61; RESP 27; O2SAT 96
[2025-05-12 11:30] VITALS: BP 134/79; PULSE 65; RESP 20; O2SAT 95
[2025-05-12] MEDS: levETIRAcetam INJ 100 MG/ML VIAL 5ML 500 MG IVP (11:43)
[2025-05-12] MEDS: SODIUM CHLORIDE 0.9% 1000 ML 1,000 ML 100 ML IV (11:43)
[2025-05-12 11:46] LABS: Alanine Aminotransferase 110 U/L (10-49); Albumin, Serum 3.4 gm/dL (3.4-4.8); Albumin/Globulin Ratio 0.9 (1.2-2.2); Alkaline Phosphatase 176 U/L (46-116); Anion Gap 6 (7-16); Aspartate Amino Transferase 157 U/L (0-34); BUN/Creatinine Ratio 19 Ratio (12-20); Basophils # (Auto) 0.0 Thou/mm3 (0.0-0.2); Basophils % (Auto) 1 % (0-2.5); Bilirubin,Total 0.6 mg/dL (0.3-1.2); Blood Urea Nitrogen 13 mg/dL (9-23); Calcium 8.5 mg/dL (8.3-10.6); Calcium (Corrected) 9.0 mg/dL (8.5-10.1); Carbon Dioxide 27.1 mMol/L (20.0-31.0); Chloride 107 mMol/L (98-107); Creatinine (Component) 0.7 mg/dL (0.6-1.3); Eosinophils # (Auto) 0.0 Thou/mm3 (0.0-0.5); Eosinophils % (Auto) 0 % (0-10); Estimated Creatinine Clearance 80.4 mL/min (>60); Globulin 4.0 gm/dL (2.3-3.5); Glucose 83 mg/dL (74-106); Hematocrit 39.1 % (41.0-53.0); Hemoglobin 13.9 g/dL (13.5-16.0); Immature Granulocytes Auto 0.01 Thou/mm3 (0.00-0.00); Lymphocytes # (Auto) 1.0 Thou/mm3 (1.0-4.8); Lymphocytes % (Auto) 24 % (10-50); Mean Corpuscular HGB Conc 35.5 g/dl (31.0-37.0); Mean Corpuscular Hemoglobin 33.7 pg (25.0-35.0); Mean Corpuscular Volume 95 fL (80-100); Monocytes # (Auto) 0.4 Thou/mm3 (0.0-0.8); Monocytes % (Auto) 10 % (0-12); Neutrophils # (Auto) 2.8 Thou/mm3 (1.8-7.7); Neutrophils % (Auto) 65 % (37-80); Nucleated Red Blood Cell # 0.00 Thou/mm3 (0.00-0.00); Nucleated Red Blood Cell % 0 /100 WBC (0); Osmolality,Calculated 278 (275-295); Platelet Count 127 Thou/mm3 (140-440); Potassium 3.8 mMol/L (3.4-5.1); RDW Standard Deviation 44.9 fL (35.1-43.9); Red Blood Count 4.12 Miln/mm3 (4.50-5.90); Sodium 140 mMol/L (136-145); Total Protein 7.4 gm/dL (5.7-8.2); White Blood Count 4.3 Thou/mm3 (3.8-10.6); eGFR > 60 See Note
[2025-05-12 11:48] LABS: INR 1.1 (0.9-1.3); Partial Thromboplastin Time 27.5 Seconds (22.0-36.0); Prothrombin Time 12.2 Seconds (9.0-12.2)
[2025-05-12 13:29] VITALS: BP 136/76; PULSE 60; RESP 16; TEMP 36.6; O2SAT 100
== END 2025-05-12 13:42 | disposition home or self-care (01) ==
PROVIDERS: Emergency Provider Family Medicine
DX: G40.909 Epilepsy, unspecified, not intractable, without status epilepticus (principal); R05.9 Cough, unspecified; I49.1 Atrial premature depolarization; I10 Essential (primary) hypertension; Z87.891 Personal history of nicotine dependence
CPT/HCPCS: 36415; 70450; 71045; 80053; 81001; 85025; 85610; 85730; 93005; 96374; 99284; J1953; J7030

== ENCOUNTER 2025-05-18 09:53 | Emergency (ER) | payer MEDICAID, SELFPAY ==
[2025-05-18 10:16] VITALS: BP 103/66; PULSE 64; RESP 18; TEMP 36.8; O2SAT 100; BMI 18.6
--- NOTE | 2025-05-18 12:06 | XR_ITS ---
Examination: Hand, right 3 views Technique: Hand AP, oblique, lateral 3 views Date and time of exam: May 18, 2025 1209 hours INDICATIONS: Redness swelling and pain involving the second digit beginning 3 days ago. FINDINGS: Soft tissue swelling about the second digit No fracture No cortical bone destruction No opaque foreign body IMPRESSION: No cortical bone destruction or foreign body
--- NOTE | 2025-05-18 14:28 | PD.EDSKIN ---
ED Skin Abcess FB-RME/HPI General Chief complaint: Skin/Abscess/Foreign Body Stated complaint: right 2nd digit swelling, draining x 3d Source: patient Arrival date/time: 05/18/25 09:53 Mode of arrival: ambulatory Limitations: no limitations RME / HPI RME / HPI narrative: 65-year-old male presents to the ED with a complaint of right index finger pain that began 3 days ago. Denies trauma. MD complaint: abscess/boil (Right index finger) Onset (ago): day(s) (3) Tetanus up to date: unsure Severity: moderate Severity scale (1-10): 4 Quality: stabbing and aching Consistency: constant Exacerbating factors: palpation and movement Context: none Treatments prior to arrival: none Related Data Previous Rx's ?Medication ?Instructions ?Recorded levetiracetam 500 mg tablet 500 mg PO BID #30 tabs 10/20/22 (Keppra) levetiracetam 500 mg tablet 500 mg PO BID #60 tabs 02/25/23 (Keppra) levetiracetam 500 mg tablet 500 mg PO BID #30 tabs 08/17/23 (Keppra) levetiracetam 500 mg tablet 500 mg PO BID #30 tabs 12/28/23 (Keppra) levetiracetam 500 mg tablet 500 mg PO TID #90 tabs 02/29/24 levetiracetam 500 mg tablet 500 mg PO BID #60 tabs 03/22/24 (Keppra) levetiracetam 500 mg tablet 500 mg PO BID #30 tabs 07/04/24 (Keppra) levetiracetam 500 mg tablet 500 mg PO BID #20 tabs 07/11/24 (Keppra) levetiracetam 500 mg tablet 500 mg PO BID #60 tabs 09/17/24 (Keppra) levetiracetam 500 mg tablet 500 mg PO BID #20 tabs 09/29/24 (Keppra) levetiracetam 500 mg tablet 500 mg PO BID #20 tabs 12/16/24 (Keppra) levetiracetam 500 mg tablet 500 mg PO BID seizure #60 tabs 04/19/25 (Keppra) levetiracetam 500 mg tablet 500 mg PO BID SEIZURE DISORDER #90 04/29/25 (Keppra) tabs amoxicillin 500 mg-potassium 1 tab PO BID #30 tabs 05/18/25 clavulanate 125 mg tablet (Augmentin) ibuprofen 600 mg tablet 600 mg PO TID PRN pain #30 tabs 05/18/25 Allergies Allergy/AdvReac Type Severity Reaction Status Date / Time No Known Allergies Allergy Verified 05/18/25 09:56 Review of Systems Constitutional Constitutional: Reports system reviewed and no additional complaints, except as documented Eyes Eyes: Reports system reviewed and no additional complaints, except as documented, Denies dry eyes, Denies exophthalmos and Reports floaters Cardiovascular Cardiovascular: Denies chest pain with activity and Denies claudication ED Exam General Limitations: Present no limitations General appearance: Present alert and in no apparent distress Head Head exam: Present atraumatic Eye Eye exam: Present normal appearance and EOMI ENT ENT exam: Present normal exam, normal oropharynx and mucous membranes moist Neck Neck exam: Present normal inspection Abdominal Exam Abdominal exam: Present soft and normal bowel sounds Extremities Exam Extremities exam: Present normal inspection, full ROM and tenderness (Right index finger is tender to palpation. Palpating and exerting pressure between my thumb and my index finger elicits purulence. Neurovascular is intact. It is tender to touch.) Back Exam Back exam: Present normal inspection and full ROM Neurological Exam Neurological exam: Present alert and oriented X3 Psychiatric Psychiatric exam: Present normal affect and normal mood Skin Skin exam: Present warm, dry, intact, erythema and pallor Course Course Course Narrative: Patient will have an I&D of his right index finger. Quality Measures none Orders Category Date Time Status Dress wound [Wound Care] NOW Care 05/18/25 15:06 Active Set Up Suture Tray STAT Care 05/18/25 14:19 Active XR hand comp RT min 3V Stat Exams 05/18/25 12:06 Completed Lidocaine 1% 20 ml [Xylocaine 1% 20 ML] Med 05/18/25 14:19 Discontinued 20 ml INFL X1 ONE cefTRIAXone [Rocephin] 1,000 mg Med 05/18/25 15:06 Ordered Lidocaine 1% 20 ml [Xylocaine 1% 20 ML] 2.1 ml IM X1 Vital Signs Vital signs: Vital Signs Temperature 98.2 F 05/18/25 10:16 Pulse Rate 64 05/18/25 10:16 Respiratory Rate 18 07/23/25 10:16 Blood Pressure 103/66 05/18/25 10:16 Pulse Oximetry (%) 100 05/18/25 10:16 Oxygen Delivery Method Room Air 05/18/25 10:16 Pulse ox room air 100% PROCEDURES: Abscess I/D Site: other (Right index finger) Side (if applicable): right Local Anesthetic: lidocaine 1% Amount of anesthesia used (mL): 6 Technique: incised with #11 blade Amount of fluid expressed (mL): 12 Irrigation: Yes Packing used?: none Complications: pain (Patient tolerated procedure well) Skin / Abscess / Foreign Body MDM Narrative MDM Narrative:: Patient will be dressed and he will have a gram of Rocephin IM, he will be discharged in no apparent distress. I will send to the pharmacy of his choice Augmentin 500 mg to be consumed twice daily x 10 days. Patient is to have a 2-day wound check. Patient is to keep the wound clean and dry. Patient data External records reviewed:: Other (specify) (NA) Clinical information provided by:: patient Social determinants that could affect healthcare access:: none (NA) Patient has the following chronic illnesses:: NA How is presenting disease/condition affected by chronic disease/condition?: no chronic disease (Denies chronic disease) Evaluation data The following diagnostics were reviewed and interpreted by me:: lab results (Labs were not drawn) and radiology exam(s) Lab and/or radiology exams considered but not ordered:: Radiology demonstrates no bony deformity. There is no cortical destruction present. Interpretation Summary: N/A Medications / Prescriptions Medications or Prescriptions considered but not ordered:: N/A Medication administrations:: Medication Administration History Ceftriaxone Sodium 1,000 mg/ (Lidocaine HCl 2.1 ml) 0 mg IM X1 ONE Stop: 05/18/25 15:07 Discontinued Medications Lidocaine HCl (Lidocaine Hcl 1% 20 Ml Vial) 20 ml INFL X1 ONE Stop: 05/18/25 14:20 Last Admin: 05/18/25 14:33 Dose: 20 ml Documented By: GAB Comments: USED BY PROVIDER DONE Consultations Consultation(s) initiated? (list below): No Diagnosis Skin/Abscess Differential Diagnosis: abscess of skin or subcutaneous tissue, viral exanthem, dermatophytosis and urticaria Most likely diagnosis given after review of the tests above:: No tests were drawn Admission Indicated Admission indicated?: not indicated Admission Request Was there a request for admission?: No Disposition Plan Disposition Plan: Discharge Discharge Attestation Discharge Attestation: The patient and all family members were given an opportunity to ask questions and understood the discharge instructions. Discharge instructions specifically effects, indications for sooner follow up or return to the emergency department, and the expected course of current diagnosis. Patient condition: Stable Discharge Plan Plan Patient Disposition: HOME (Self Care) Discharge Disposition comment: Patient is discharged in no apparent distress Patient condition on transfer: Stable Prescriptions/Referrals Prescriptions/Med Rec: New amoxicillin-pot clavulanate [Augmentin] 500-125 mg tablet 1 tab PO BID Qty: 30 0RF ibuprofen 600 mg tablet 600 mg PO TID PRN (Reason: pain) Qty: 30 0RF No Action levetiracetam [Keppra] 500 mg tablet 500 mg PO BID Qty: 30 0RF levetiracetam [Keppra] 500 mg tablet 500 mg PO BID Qty: 30 0RF levetiracetam [Keppra] 500 mg tablet 500 mg PO BID Qty: 60 0RF levetiracetam [Keppra] 500 mg tablet 500 mg PO BID Qty: 20 0RF levetiracetam [Keppra] 500 mg tablet 500 mg PO BID Qty: 20 0RF levetiracetam [Keppra] 500 mg tablet 500 mg PO BID Qty: 20 0RF levetiracetam [Keppra] 500 mg tablet 500 mg PO BID MDD 2 Qty: 90 3RF levetiracetam [Keppra] 500 mg tablet 500 mg PO BID Qty: 30 0RF levetiracetam [Keppra] 500 mg tablet 500 mg PO BID Qty: 60 0RF levetiracetam 500 mg tablet 500 mg PO TID Qty: 90 0RF levetiracetam [Keppra] 500 mg tablet 500 mg PO BID Qty: 30 0RF levetiracetam [Keppra] 500 mg tablet 500 mg PO BID Qty: 60 0RF levetiracetam [Keppra] 500 mg tablet 500 mg PO BID MDD 2 Qty: 60 5RF Referrals: No Primary/Family,Physician [Primary Care Provider] - In 1 week Problem List Clinical Impression: Abscess around fingernail Patient/Caregiver Discharge Instructions Discharge Activity: activity as tolerated Education Materials: Discharge Instructions for Cellulitis Print Language: British Stand Alone Forms: Linda Award Info., Patient Portal Info Letter PA/SIGNAL MAINTAINER HELPER Supervising Physician PA/SIGNAL MAINTAINER HELPER Supervising Physician: RIO
[2025-05-18] MEDS: LIDOCAINE HCL 1% 20 ML VIAL INFL (14:33)
[2025-05-18] MEDS: cefTRIAXone 1,000 MG, LIDOCAINE 1% 20 ML 2.1 ML IM (15:24)
== END 2025-05-18 15:33 | disposition home or self-care (01) ==
PROVIDERS: Emergency Provider Emergency Medicine
DX: L02.511 Cutaneous abscess of right hand (principal)
CPT/HCPCS: 26010; 73130; 96372; 99283; J0696; J3490

== ENCOUNTER 2025-06-03 08:07 | Emergency (ER) | payer MEDICAID, SELFPAY ==
[2025-06-03 08:11] VITALS: BP 148/82; PULSE 59; RESP 19; TEMP 36; O2SAT 96
[2025-06-03 08:13] VITALS: PULSE 76; RESP 14; O2SAT 98; BMI 24.1
--- NOTE | 2025-06-03 08:17 | PD.EDSEIZ ---
ED Seizures RME/HPI General Chief Complaint: Seizure Stated Complaint: SEIZURES Time Seen by Provider: 06/03/25 08:16 Arrival date/time: 06/03/25 08:07 RME / HPI RME / HPI Narrative: DR. LEDBETTER MAIN ED EVALUATION: 65-year-old male with known history of seizure disorder presents to the Emergency Department after a witnessed generalized tonic-clonic seizure lasting approximately 30 seconds. Per EMS and bystanders, patient was found lying on the ground and appeared disoriented upon their arrival. He became more responsive en route. Patient admits to not currently taking antiepileptic medications. He reports occasional alcohol use. No known drug allergies. No other complaints or symptoms at this time. Bedside glucose was 106. Related Data Previous Rx's ?Medication ?Instructions ?Recorded levetiracetam 500 mg tablet 500 mg PO BID #30 tabs 10/20/22 (Keppra) levetiracetam 500 mg tablet 500 mg PO BID #60 tabs 02/25/23 (Keppra) levetiracetam 500 mg tablet 500 mg PO BID #30 tabs 08/17/23 (Keppra) levetiracetam 500 mg tablet 500 mg PO BID #30 tabs 12/28/23 (Keppra) levetiracetam 500 mg tablet 500 mg PO TID #90 tabs 02/29/24 levetiracetam 500 mg tablet 500 mg PO BID #60 tabs 03/22/24 (Keppra) levetiracetam 500 mg tablet 500 mg PO BID #30 tabs 07/04/24 (Keppra) levetiracetam 500 mg tablet 500 mg PO BID #20 tabs 07/11/24 (Keppra) levetiracetam 500 mg tablet 500 mg PO BID #60 tabs 09/17/24 (Keppra) levetiracetam 500 mg tablet 500 mg PO BID #20 tabs 09/29/24 (Keppra) levetiracetam 500 mg tablet 500 mg PO BID #20 tabs 12/16/24 (Keppra) levetiracetam 500 mg tablet 500 mg PO BID seizure #60 tabs 04/19/25 (Keppra) levetiracetam 500 mg tablet 500 mg PO BID SEIZURE DISORDER #90 04/29/25 (Keppra) tabs amoxicillin 500 mg-potassium 1 tab PO BID #30 tabs 05/18/25 clavulanate 125 mg tablet (Augmentin) ibuprofen 600 mg tablet 600 mg PO TID PRN pain #30 tabs 05/18/25 Allergies Allergy/AdvReac Type Severity Reaction Status Date / Time No Known Allergies Allergy Verified 06/03/25 08:13 Review of Systems Review of Systems Systems Reviewed: All systems reviewed, normal except as documented Past Medical History Past Medical History NEUROLOGIC: Positive Neurological Disorders and Seizures CARDIAC: Positive Hypertension; Negative Cardiac Disorders or Congestive Heart Failure RESPIRATORY: Negative Chronic Obstructive Pulmonary Disease (COPD) or Asthma GASTROINTESTINAL: Negative Gastrointestinal Disorders or Gastroesophageal Reflux Disease GENITOURINARY: Negative Genitourinary Disorders or Renal Disease MUSCULOSKELETAL: Negative Musculoskeletal Disorders ENDOCRINE: Negative Endocrine Disorders, Diabetes Mellitus Type 1 or Diabetes Mellitus Type 2 HEMATOLOGIC: Negative Blood Disorders PSYCHO/SOCIAL: Positive Recreational Drug Use; Negative Depression or Anxiety OTHER HISTORY: Negative Autoimmune Disease or Clostridium Difficile Family History FAMILY HISTORY: Positive Family Cardiac Disorders; Negative Family Psychiatric Problems, Family Respiratory Disorders, Family Gastrointestinal Problems, Family Cancer, Family Surgery or Family Anesthesia Reaction Surgical History SURGICAL: Positive Abdominal Surgery Social History SMOKING STATUS: Current every day smoker SECOND HAND EXPOSURE: No SUBSTANCE USE: marijuana and methamphetamine ED Exam Narrative Physical exam: GENERAL APPEARANCE: alert and oriented x 4, well-developed, well-nourished, no acute distress VITALS: All vitals were reviewed and the pulse ox is 98% on room air, which is normal according to my interpretation. HEENT: Normocephalic, atraumatic; pupils equal, round, reactive to light; EOMI; mucous membranes pink, moist; oropharynx clear NECK: Supple LUNGS: CTABL; no wheezes, no rales, no rhonchi HEART: Regular rate, regular rhythm; normal S1, S2; no murmurs ABDOMEN: non distended; normal BS; soft, no tenderness, no guarding, no rebound; no masses, no organomegaly, no hernia BACK: no CVA tenderness EXTREMITIES: atraumatic; no edema NEUROLOGIC: awake; alert and oriented x4; cranial nerves II-XII grossly intact; no focal sensory or motor deficits PSYCHIATRIC: appropriate mood and affect SKIN: warm, dry, normal color; no rashes Course Quality Measures none Orders Category Date Time Status levETIRAcetam [Keppra] Med 06/03/25 09:11 Discontinued 1,000 mg PO X1 ONE Vital Signs Vital signs: Vital Signs Temperature 96.8 F 06/03/25 08:11 Pulse Rate 59 L 06/03/25 08:11 Respiratory Rate 19 06/03/25 08:11 Blood Pressure 148/82 H 06/03/25 08:11 Pulse Oximetry (%) 96 06/03/25 08:11 Oxygen Delivery Method Room Air 06/03/25 08:11 Seizure MDM Narrative MDM Narrative:: Nicki Cheek am scribing for and in the presence of Dr. Ledbetter. Patient data External records reviewed:: [facility] previous records and EMS form Clinical information provided by:: patient and EMS Social determinants that could affect healthcare access:: none Patient has the following chronic illnesses:: Seizure disorder, not currently taking antiepileptic medications. He reports occasional alcohol use. No known drug allergies. How is presenting disease/condition affected by chronic disease/condition?: caused by Evaluation data The following diagnostics were reviewed and interpreted by me:: other (specify) (none) Lab and/or radiology exams considered but not ordered:: none Interpretation Summary: n/a Medications / Prescriptions Medications or Prescriptions considered but not ordered:: none Medication administrations:: Medication Administration History Discontinued Medications Levetiracetam (Levetiracetam 250 Mg Tablet) 1,000 mg PO X1 ONE Stop: 06/03/25 09:12 Last Admin: 06/03/25 09:29 Dose: 1,000 mg Documented By: CG see above Consultations Consultation(s) initiated? (list below): No Diagnosis Seizure Differential Diagnosis: other (breakthrough seizure due to medication noncompliance, alcohol-related seizure, structural brain lesion) Most likely diagnosis given after review of the tests above:: Recurrent seizures Admission Indicated Admission indicated?: not indicated Admission Request Was there a request for admission?: No Disposition Plan Disposition Plan: Discharge Discharge Attestation Discharge Attestation: The patient and all family members were given an opportunity to ask questions and understood the discharge instructions. Discharge instructions specifically effects, indications for sooner follow up or return to the emergency department, and the expected course of current diagnosis. Patient condition: Stable Discharge Plan Plan Patient Disposition: HOME (Self Care) Prescriptions/Referrals Prescriptions/Med Rec: No Action levetiracetam [Keppra] 500 mg tablet 500 mg PO BID Qty: 30 0RF levetiracetam [Keppra] 500 mg tablet 500 mg PO BID Qty: 30 0RF levetiracetam [Keppra] 500 mg tablet 500 mg PO BID Qty: 60 0RF levetiracetam [Keppra] 500 mg tablet 500 mg PO BID Qty: 20 0RF levetiracetam [Keppra] 500 mg tablet 500 mg PO BID Qty: 20 0RF levetiracetam [Keppra] 500 mg tablet 500 mg PO BID Qty: 20 0RF levetiracetam [Keppra] 500 mg tablet 500 mg PO BID MDD 2 Qty: 90 3RF amoxicillin-pot clavulanate [Augmentin] 500-125 mg tablet 1 tab PO BID Qty: 30 0RF ibuprofen 600 mg tablet 600 mg PO TID PRN (Reason: pain) Qty: 30 0RF levetiracetam [Keppra] 500 mg tablet 500 mg PO BID Qty: 30 0RF levetiracetam [Keppra] 500 mg tablet 500 mg PO BID Qty: 60 0RF levetiracetam 500 mg tablet 500 mg PO TID Qty: 90 0RF levetiracetam [Keppra] 500 mg tablet 500 mg PO BID Qty: 30 0RF levetiracetam [Keppra] 500 mg tablet 500 mg PO BID Qty: 60 0RF levetiracetam [Keppra] 500 mg tablet 500 mg PO BID MDD 2 Qty: 60 5RF Referrals: No Primary/Family,Physician [Primary Care Provider] - In 1 week Problem List Clinical Impression: Recurrent seizures Patient/Caregiver Discharge Instructions Education Materials: ED Seizure, Recurrent (Adult) Print Language: Mozambican Stand Alone Forms: Linda Award Info., Patient Portal Info Letter
[2025-06-03 08:30] VITALS: PULSE 58; RESP 17; O2SAT 97
[2025-06-03 09:00] VITALS: BP 134/86; PULSE 54; RESP 14; O2SAT 96
[2025-06-03 09:30] VITALS: BP 136/76; PULSE 52; RESP 14; O2SAT 98
[2025-06-03 10:00] VITALS: BP 146/74; PULSE 51; RESP 15; O2SAT 98
== END 2025-06-03 10:30 | disposition home or self-care (01) ==
PROVIDERS: Emergency Provider Emergency Medicine
DX: G40.909 Epilepsy, unspecified, not intractable, without status epilepticus (principal)
CPT/HCPCS: 99283; A9270

== ENCOUNTER 2025-06-11 09:38 | Emergency (ER) | payer MEDICAID, SELFPAY ==
--- NOTE | 2025-06-11 09:44 | PD.EDSEIZ ---
ED Seizures RME/HPI General Chief Complaint: Seizure Stated Complaint: SEIZURES Time Seen by Provider: 06/11/25 09:45 Arrival date/time: 06/11/25 09:38 RME / HPI RME / HPI Narrative: DR. ZARAGOZA MAIN ED EVALUATION: 65-year-old male with a known history of seizure disorder presents to the Emergency Department by EMS from a homeless [facility] after a witnessed episode of seizure activity. Patient is reportedly noncompliant with his Keppra regimen. EMS recorded stable vital signs en route, and blood glucose was measured at 136. Related Data Previous Rx's ?Medication ?Instructions ?Recorded levetiracetam 500 mg tablet 500 mg PO TID #90 tabs 02/29/24 amoxicillin 500 mg-potassium 1 tab PO BID #30 tabs 05/18/25 clavulanate 125 mg tablet (Augmentin) ibuprofen 600 mg tablet 600 mg PO TID PRN pain #30 tabs 05/18/25 Allergies Allergy/AdvReac Type Severity Reaction Status Date / Time No Known Allergies Allergy Verified 06/03/25 08:13 Review of Systems Review of Systems Systems Reviewed: All systems reviewed, normal except as documented Past Medical History Past Medical History NEUROLOGIC: Positive Neurological Disorders and Seizures CARDIAC: Positive Hypertension PSYCHO/SOCIAL: Positive Recreational Drug Use Family History FAMILY HISTORY: Positive Family Cardiac Disorders Surgical History SURGICAL: Positive Abdominal Surgery Social History SMOKING STATUS: Current every day smoker SECOND HAND EXPOSURE: No SUBSTANCE USE: marijuana and methamphetamine ALCOHOL: Never ED Exam Narrative Physical exam: GENERAL APPEARANCE:? patient appears postictal, well-developed, well-nourished, no acute distress HEENT: normocephalic, atraumatic NECK: supple LUNGS: no respiratory distress, normal effort HEART: good peripheral perfusion ABDOMEN: non distended EXTREMITIES:? atraumatic NEUROLOGIC: awake; appears postictal PSYCHIATRIC:? appropriate mood and affect SKIN: warm, dry, normal color; no rashes Course Quality Measures none Orders Category Date Time Status levETIRAcetam INJ [Keppra Inj] Med 06/11/25 09:45 Discontinued 1,000 mg IVP X1 ONE Vital Signs Vital signs: Vital Signs Temperature 97.7 F 06/11/25 09:55 Pulse Rate 78 06/11/25 09:55 Respiratory Rate 19 06/11/25 09:55 Blood Pressure 130/73 06/11/25 09:55 Pulse Oximetry (%) 97 06/11/25 09:55 Oxygen Delivery Method Room Air 06/11/25 09:55 Seizure MDM Narrative MDM Narrative:: I, Nicki Hoffman, am scribing for and in the presence of Dr. Zaragoza. Patient data External records reviewed:: [facility] previous records and EMS form Clinical information provided by:: patient and EMS Social determinants that could affect healthcare access:: substance use Patient has the following chronic illnesses:: Known history of seizure disorder, noncompliant with his Keppra regimen. How is presenting disease/condition affected by chronic disease/condition?: caused by Evaluation data The following diagnostics were reviewed and interpreted by me:: other (specify) (none) Lab and/or radiology exams considered but not ordered:: none Interpretation Summary: n/a Medications / Prescriptions Medications or Prescriptions considered but not ordered:: none Medication administrations:: Medication Administration History Discontinued Medications Levetiracetam (Levetiracetam Inj 100 Mg/Ml Vial 5ml) 1,000 mg IVP X1 ONE Stop: 06/11/25 09:46 Last Admin: 06/11/25 10:05 Dose: 1,000 mg Documented By: DO see above if any Consultations Consultation(s) initiated? (list below): No Diagnosis Seizure Differential Diagnosis: other (Breakthrough seizure due to medication noncompliance, alcohol withdrawal seizure, and metabolic-related seizure.) Most likely diagnosis given after review of the tests above:: Recurrent seizures Noncompliance with medication regimen Admission Indicated Admission indicated?: not indicated Admission Request Was there a request for admission?: No Disposition Plan Disposition Plan: Discharge Discharge Attestation Discharge Attestation: The patient and all family members were given an opportunity to ask questions and understood the discharge instructions. Discharge instructions specifically effects, indications for sooner follow up or return to the emergency department, and the expected course of current diagnosis. Patient condition: Stable Discharge Plan Plan Patient Disposition: HOME (Self Care) Prescriptions/Referrals Prescriptions/Med Rec: No Action amoxicillin-pot clavulanate [Augmentin] 500-125 mg tablet 1 tab PO BID Qty: 30 0RF ibuprofen 600 mg tablet 600 mg PO TID PRN (Reason: pain) Qty: 30 0RF levetiracetam 500 mg tablet 500 mg PO TID Qty: 90 0RF Referrals: No Primary/Family,Physician [Primary Care Provider] - In 1 week Problem List Clinical Impression: Recurrent seizures, Noncompliance with medication regimen Patient/Caregiver Discharge Instructions Education Materials: ED Seizure, Recurrent (Adult) Print Language: Congolese Stand Alone Forms: Linda Award Info., Patient Portal Info Letter
[2025-06-11 09:51] VITALS: BMI 25.0
[2025-06-11 09:55] VITALS: BP 130/73; PULSE 78; RESP 19; TEMP 36.5; O2SAT 97
[2025-06-11] MEDS: levETIRAcetam INJ 100 MG/ML VIAL 5ML 1000 MG IVP (10:05)
[2025-06-11 12:03] VITALS: BP 145/86; PULSE 62; RESP 17; TEMP 36.4; O2SAT 98
[2025-06-11 13:58] VITALS: BP 141/82; PULSE 67; RESP 19; O2SAT 98
== END 2025-06-11 14:00 | disposition home or self-care (01) ==
PROVIDERS: Emergency Provider Emergency Medicine
DX: R56.9 Unspecified convulsions (principal); Z59.01 Sheltered homelessness; Z91.148 Patient's other noncompliance with medication regimen for other reason
CPT/HCPCS: 96374; 99282; J1953

== ENCOUNTER 2025-06-16 09:55 | Emergency (ER) | payer MEDICAID, SELFPAY ==
[2025-06-16 10:03] VITALS: PULSE 80; RESP 18; O2SAT 99
--- NOTE | 2025-06-16 10:06 | XR_ITS ---
Examination: CT cervical spine without contrast 2-D sagittal reconstructions 2-D coronal reconstructions 3-D reconstructions. Exam date and time:June 16, 2025 1109 hours INDICATIONS: Ground-level fall today with injury to the neck, neck pain CTDI:vol (mGy) 13.9 DLP: (mGycm) 311 Technique: Multiple 2 mm axial sections of the cervical spine have been obtained. The coronal and sagittal reconstructions have been obtained. 3-D reconstructions have been obtained. Low dose protocols were performed. One or more of the following dose reduction techniques were used; automated exposure control, adjustment of the mA and/or KV according to patient size, use of iterative reconstruction technique. Findings: Axial sections demonstrate intact base of the skull. C1 exhibit satisfactory relationship to the odontoid. No acute cervical vertebral body fracture seen. Alignment posterior spinous processes satisfactory. Impression: No acute cervical fracture.
--- NOTE | 2025-06-16 10:06 | XR_ITS ---
Examination: CT brain head without contrast. 2-D sagittal coronal reconstructions Date and time of exam:June 16, 2025, 1109 hours Comparison May 12, 2025 INDICATIONS: Seizures with fall today CTDI: vol (mGy):45.4 DLP: (mGycm):926 Technique: Multiple CT axial sections of the brain have been obtained, 5 mm slice thickness. Contrast has not been administered. 2-D sagittal, coronal reconstructions have been obtained Low dose protocols were performed. One or more of the following dose reduction techniques were used; automated exposure control, adjustment of the mA and/or KV according to patient size, use of iterative reconstruction technique. Findings: No significant ventricular enlargement. Intra-axial or extra-axial hemorrhage density is not seen. No mass effect or midline shift Basal cisterns are not remarkable. Fourth ventricle is midline. Cranial vault intact. Impression: Negative for acute hemorrhage, mass effect or midline shift Consider elective brain MRI follow-up, pre and postcontrast, seizure protocol
[2025-06-16 10:07] VITALS: BP 157/80; PULSE 73; RESP 18; TEMP 36.5; O2SAT 98
--- NOTE | 2025-06-16 10:10 | PC.NURSE ---
Pt. here from home to room 12, pt. had a seizure at home per natural resources manager Shruthi, pt. states he doesn't remember. Shruthi states pt.'s friend witnessed the seizure. Pt. states he feels fine at this time. Pt. states he wants his pants removed because they are wet.
--- NOTE | 2025-06-16 10:16 | EKG_ITS ---
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
[2025-06-16] MEDS: levETIRAcetam INJ 100 MG/ML VIAL 5ML 1000 MG IVP (10:25)
--- NOTE | 2025-06-16 10:26 | EDNOTE_ITS ---
ED Seizures RME/HPI General Chief Complaint: Seizure Stated Complaint: SEIZURE Time Seen by Provider: 06/16/25 10:05 Arrival date/time: 06/16/25 09:55 Limitations: no limitations RME / HPI RME / HPI Narrative: DR. REDDING MAIN ED EVALUATION: 65-year-old male with past medical history of seizures, noncompliant with medications (possibly Keppra), presents to the Emergency Department [facility] from a homeless long-term after a witnessed seizure. The last time he took his medication is unknown, though the patient reports it may have been a few days ago. Vitals were normal per EMS. No medications were administered en route as the patient was already postictal upon EMS arrival. Urinary incontinence noted. Related Data Previous Rx's ?Medication ?Instructions ?Recorded levetiracetam 500 mg tablet 500 mg PO TID #90 tabs 03/19 amoxicillin 500 mg-potassium 1 tab PO BID #30 tabs clavulanate 125 mg tablet (Augmentin) ibuprofen 600 mg tablet 600 mg PO TID PRN pain #30 t abs 05/18/25 Allergies Allergy/AdvReac Type Severity Reaction Status Date / Time No Known Allergies Allergy Verified 06/16/25 10:07 Review of Systems Review of Systems Systems Reviewed: All systems reviewed, normal except as documented Past Medical History Past Medical History NEUROLOGIC: Positive Neurological Disorders and Seizures CARDIAC: Positive Hypertension PSYCHO/SOCIAL: Positive Recreational Drug Use Family History FAMILY HISTORY: Positive Family Cardiac Disorders Surgical History SURGICAL: Positive Abdominal Surgery Social History SMOKING STATUS: Current some day smoker SECOND HAND EXPOSURE: No SUBSTANCE USE: marijuana and methamphetamine ED Exam General Limitations: Present no limitations General appearance: Present alert, in no apparent distress and other (postictal, urinated on himself) Head Head exam: Present atraumatic, normocephalic and normal inspection Eye Eye exam: Present normal appearance, PERRL and EOMI ENT ENT exam: Present normal exam, normal oropharynx and mucous membranes moist Neck Neck exam: Present normal inspection, full ROM and trachea midline Chest Chest inspection: Present normal inspection and symmetric chest wall rise Respiratory Respiratory exam: Present normal lung sounds bilaterally Cardiovascular Cardiovascular exam: Present regular rate, normal rhythm and normal heart sounds Abdominal Exam Abdominal exam: Present soft and normal bowel sounds Extremities Exam Extremities exam: Present full ROM and pedal edema (Bilateral pitting 1+ edema ) Back Exam Back exam: Present normal inspection and full ROM Neurological Exam Neurological exam: Present alert, oriented X3 and CN II-XII intact Psychiatric Psychiatric exam: Present normal affect and normal mood Skin Skin exam: Present warm, dry, intact and normal color Course Quality Measures none Orders Category Date Time Status EKG (ED ONLY) *Do not use* NOW Care 06/16/25 10:[address] cervical spine wo con Stat Exams 06/16/25 10:[address] head/brain wo con Stat Exams 06/16/25 10:06 Completed EKG (ED Only) Stat Exams 06/16/25 10:16 Draft Acetaminophen Stat Lab 06/16/25 10:05 Completed Ammonia Stat Lab 06/16/25 10:55 Completed CBC Stat Lab 06/16/25 10:05 Completed CMP [Comprehensive Metabolic Panel] Stat Lab 06/16/25 10:05 Completed Drug Screen,Urine Stat Lab 06/16/25 12:05 Completed INR [Prothrombin Time with INR] Stat Lab 06/16/25 10:05 Completed Salicylate Stat Lab 06/16/25 10:05 Completed T4 (Thyroxine) Stat Lab 06/16/25 10:05 Completed Thyroid Stimulating Hormone Stat Lab 06/16/25 10:05 Completed UA, C/S IF [Urinalysis, C/S if Indicated] Stat Lab 06/16/25 12:05 Completed levETIRAcetam INJ [Keppra Inj] Med 06/16/25 10:05 Discontinued 1,000 mg IVP X1 ONE Vital Signs Vital signs: Vital Signs Temperature 97.7 F 06/16/25 10:07 Pulse Rate 73 06/16/25 10:07 Respiratory Rate 18 06/16/25 10:07 Blood Pressure 157/80 H 06/16/25 10:07 Pulse Oximetry (%) 98 06/16/25 10:07 Oxygen Delivery Method Room Air 06/16/25 10:07 Seizure MDM Narrative MDM Narrative:: I, Nicki Hoffman am scribing for and in the presence of Dr. Redding. Patient is a 65-year-old male with medical history epilepsy medication noncompliance, homelessness is in Emergency Department with concerns of having had a breakthrough seizure. Vital signs and exam as listed. Concern for metabolic disturbance, medication noncompliance among others. Also concern for acute intracranial injury-no evidence of head trauma on exam. Ordered labs, CT brain as well as medication for symptom relief. Labs without any acute hematologic abnormality, no significant electrolyte abnormality, patient with a transaminitis, AST 202, ALT 119, alk phos 188 T. bili not elevated, patient without any abdominal pain, patient does drink alcohol use methamphetamines. Thyroid T4 normal, ammonia 66 urinalysis without evidence of infection structuring positive for methamphetamine and marijuana. EKG performed June 16, 2025 at 1016 notable for heart rate 64, normal intervals, nonspecific T wave changes, not a cardiac alert. CT brain unremarkable, CT cervical spine unremarkable. On reevaluation multiple times, patient GCS 15 alert and oriented X4, no abnormalities appreciated on neuroexam, ambulating without any difficulty, tolerating oral intake will discharge home close return precautions follow-up with primary care doctor as well as a neurologist and recommendation that he takes his antiepileptic medications as prescribed, and abide sobriety Patient data External records reviewed:: [facility] previous records and EMS form Clinical information provided by:: patient and EMS Social determinants that could affect healthcare access:: housing (lives in a homeless long-term and polysubstance abuse) Patient has the following chronic illnesses:: seizures, noncompliant with medications (possibly Keppra) How is presenting disease/condition affected by chronic disease/condition?: caused by Evaluation data The following diagnostics were reviewed and interpreted by me:: lab results, radiology exam(s) and EKG tracing(s) Lab and/or radiology exams considered but not ordered:: none Interpretation Summary: My interpretation: EKG performed at 1016 hours, sinus rhythm, rate 64, motion artifact, normal intervals, non specific ST-T wave changes, no cardiac alert Procedure(s): CT cervical spine wo con Accession Number(s): [id number] cc: Fermín Stone MD; NO PRIMARY/FAMILY,PHYSICIAN; Sheri Redding MD~ Examination: CT cervical spine without contrast 2-D sagittal reconstructions 2-D coronal reconstructions 3-D reconstructions. Exam date and time:June 16, 2025 1109 hours INDICATIONS: Ground-level fall today with injury to the neck, neck pain CTDI:vol (mGy) 13.9 DLP: (mGycm) 311 Technique: Multiple 2 mm axial sections of the cervical spine have been obtained. The coronal and sagittal reconstructions have been obtained. 3-D reconstructions have been obtained. Low dose protocols were performed. One or more of the following dose reduction techniques were used; automated exposure control, adjustment of the mA and/or KV according to patient size, use of iterative reconstruction technique. Findings: Axial sections demonstrate intact base of the skull. C1 exhibit satisfactory relationship to the odontoid. No acute cervical vertebral body fracture seen. Alignment posterior spinous processes satisfactory. Impression: No acute cervical fracture. Dictated By: Fermín Stone MD Procedure(s): CT head/brain wo con Accession Number(s): [id number] cc: Fermín Stone MD; NO PRIMARY/FAMILY,PHYSICIAN; Sheri Redding MD~ Examination: CT brain head without contrast. 2-D sagittal coronal reconstructions Date and time of exam:June 16, 2025, 1109 hours Comparison May 12, 2025 INDICATIONS: Seizures with fall today CTDI: vol (mGy):45.4 DLP: (mGycm):926 Technique: Multiple CT axial sections of the brain have been obtained, 5 mm slice thickness. Contrast has not been administered. 2-D sagittal, coronal reconstructions have been obtained Low dose protocols were performed. One or more of the following dose reduction techniques were used; automated exposure control, adjustment of the mA and/or KV according to patient size, use of iterative reconstruction technique. Findings: No significant ventricular enlargement. Intra-axial or extra-axial hemorrhage density is not seen. No mass effect or midline shift Basal cisterns are not remarkable. Fourth ventricle is midline. Cranial vault intact. Impression: Negative for acute hemorrhage, mass effect or midline shift Consider elective brain MRI follow-up, pre and postcontrast, seizure protocol Dictated By: Fermín Stone MD Medications / Prescriptions Medications or Prescriptions considered but not ordered:: none Medication administrations:: Medication Administration History Discontinued Medications Levetiracetam (Levetiracetam Inj 100 Mg/Ml Vial 5ml) 1,000 mg IVP X1 ONE Stop: 06/16/25 10:06 Last Admin: 06/16/25 10:25 Dose: 1,000 mg Documented By: ED see above Consultations Consultation(s) initiated? (list below): No Diagnosis Seizure Differential Diagnosis: other (Breakthrough seizure due to medication noncompliance, metabolic disturbance (e.g., electrolyte imbalance), and intracranial pathology such as stroke or mass.) Most likely diagnosis given after review of the tests above:: Medication noncompliance, seizure, methamphetamine use, transaminitis, alcohol use disorder Admission Indicated Admission indicated?: not indicated Admission Request Was there a request for admission?: No Disposition Plan Disposition Plan: Discharge Discharge Attestation Discharge Attestation: The patient and all family members were given an opportunity to ask questions and understood the discharge instructions. Discharge instructions specifically effects, indications for sooner follow up or return to the emergency department, and the expected course of current diagnosis. Patient condition: Stable Critical Care Time Critical Care Time Critical Care Time: Yes Total Critical Care Time (min.): 45 Attestation: Critical care time was needed to stabilize patient, reassess,, monitor vital signs, and provide potentially life-saving treatment for the patient. Discharge Plan Plan Patient Disposition: HOME (Self Care) Prescriptions/Referrals Prescriptions/Med Rec: No Action amoxicillin-pot clavulanate [Augmentin] 500-125 mg tablet 1 tab PO BID Qty: 30 0RF ibuprofen 600 mg tablet 600 mg PO TID PRN (Reason: pain) Qty: 30 0RF levetiracetam 500 mg tablet 500 mg PO TID Qty: 90 0RF Referrals: No Primary/Family,Physician [Primary Care Provider] - In 1 week Problem List Clinical Impression: Methamphetamine abuse, Alcohol abuse Patient/Caregiver Discharge Instructions Education Materials: Addiction Recovery Counseling Additional Instructions: Please take your medications to prevent seizures as prescribed. Highly recommend that you seek resources for sobriety as recurrent alcohol use can lead to cirrhosis. You had elevated liver function test today however no abdominal pain, it is concerning that you may be developing liver disease. Also recommend that you seek resources for sobriety from methamphetamines. Please follow-up with your primary care doctor within 1 to 2 days. Print Language: South African Stand Alone Forms: Linda Award Info., Patient Portal Info Letter
[2025-06-16 10:59] LABS: Basophils # (Auto) 0.0 Thou/mm3 (0.0-0.2); Basophils % (Auto) 1 % (0-2.5); Eosinophils # (Auto) 0.0 Thou/mm3 (0.0-0.5); Eosinophils % (Auto) 0 % (0-10); Hematocrit 43.2 % (41.0-53.0); Hemoglobin 14.8 g/dL (13.5-16.0); Immature Granulocytes Auto 0.01 Thou/mm3 (0.00-0.00); Lymphocytes # (Auto) 1.1 Thou/mm3 (1.0-4.8); Lymphocytes % (Auto) 27 % (10-50); Mean Corpuscular HGB Conc 34.3 g/dl (31.0-37.0); Mean Corpuscular Hemoglobin 33.9 pg (25.0-35.0); Mean Corpuscular Volume 99 fL (80-100); Monocytes # (Auto) 0.3 Thou/mm3 (0.0-0.8); Monocytes % (Auto) 8 % (0-12); Neutrophils # (Auto) 2.6 Thou/mm3 (1.8-7.7); Neutrophils % (Auto) 64 % (37-80); Nucleated Red Blood Cell # 0.00 Thou/mm3 (0.00-0.00); Nucleated Red Blood Cell % 0 /100 WBC (0); Platelet Count 151 Thou/mm3 (140-440); RDW Standard Deviation 50.0 fL (35.1-43.9); Red Blood Count 4.36 Miln/mm3 (4.50-5.90); White Blood Count 4.0 Thou/mm3 (3.8-10.6)
[2025-06-16 11:14] LABS: INR 1.1 (0.9-1.3); Prothrombin Time 11.9 Seconds (9.0-12.2)
--- NOTE | 2025-06-16 11:17 | PC.NURSE ---
Pt. back to room [address]
[2025-06-16 11:20] LABS: Ammonia 66 uMol/L (11-32)
[2025-06-16 11:20] LABS: T4 (Thyroxine) 10.5 mcg/dL (4.5-10.9)
[2025-06-16 11:25] LABS: Acetaminophen < 2.0 mcg/mL (10.0-20.0); Alanine Aminotransferase 119 U/L (10-49); Albumin, Serum 3.9 gm/dL (3.4-4.8); Albumin/Globulin Ratio 0.9 (1.2-2.2); Alkaline Phosphatase 188 U/L (46-116); Anion Gap 12 (7-16); Aspartate Amino Transferase 202 U/L (0-34); BUN/Creatinine Ratio 16 Ratio (12-20); Bilirubin,Total 1.0 mg/dL (0.3-1.2); Blood Urea Nitrogen 11 mg/dL (9-23); Calcium 9.7 mg/dL (8.3-10.6); Calcium (Corrected) 9.8 mg/dL (8.5-10.1); Carbon Dioxide 21.1 mMol/L (20.0-31.0); Chloride 104 mMol/L (98-107); Creatinine (Component) 0.7 mg/dL (0.6-1.3); Globulin 4.3 gm/dL (2.3-3.5); Glucose 90 mg/dL (74-106); Osmolality,Calculated 273 (275-295); Potassium 4.4 mMol/L (3.4-5.1); Salicylate < 3.0 mg/dL; Sodium 137 mMol/L (136-145); Thyroid Stimulating Hormone 5.22 uIU/mL (0.55-4.78); Total Protein 8.2 gm/dL (5.7-8.2); eGFR > 60 See Note
[2025-06-16 12:16] LABS: Collection Type, Urine Catheter
[2025-06-16 12:28] VITALS: BP 154/83; PULSE 55; RESP 18; TEMP 36.7; O2SAT 98
[2025-06-16 12:32] LABS: Bilirubin,Urine Negative (Negative); Blood,Urine Negative (Negative); Clarity,Urine Clear (Clear/Hazy); Color,Urine Lt-Yellow (Lt Yel-Yel); Culture Indicated,Urine Not Indicated; Glucose, Urine Negative (Negative); Ketones,Urine Negative (Negative); Leukocyte Esterase,Urine Negative (Negative); Nitrite,Urine Negative (Negative); PH,Urine 7.0 (5.0-7.0); Protein,Urine Negative (Neg - Trace); RBC,Urine 1 /hpf (0-3); Specific Gravity,Urine 1.015 (1.001-1.035); Squamous Epithelial Cell,Urine < 1 /hpf (0-5); Urobilinogen,Urine Negative mg/dL (0.0-1.0); WBC,Urine 1 /hpf (0-5)
[2025-06-16 12:39] LABS: Amphetamine/Methamp Scrn,U Positive (Negative); Barbiturate Screen,Urine Negative (Negative); Benzodiazepines Screen,Urine Negative (Negative); Benzoylecgonine Screen, Ur Negative (Negative); Fentanyl Screen,Urine Negative (Negative); Opiate Screen,Urine Negative (Negative); THC Screen,Urine Positive (Negative)
[2025-06-16 13:03] VITALS: BP 158/82; PULSE 55; RESP 17; TEMP 36.4; O2SAT 98
[2025-06-16 15:51] VITALS: BP 141/74; PULSE 62; RESP 17; TEMP 36.6; O2SAT 97
== END 2025-06-16 15:55 | disposition home or self-care (01) ==
PROVIDERS: Emergency Provider Emergency Medicine
DX: F15.10 Other stimulant abuse, uncomplicated (principal); F10.10 Alcohol abuse, uncomplicated; G40.909 Epilepsy, unspecified, not intractable, without status epilepticus; I10 Essential (primary) hypertension; F17.210 Nicotine dependence, cigarettes, uncomplicated; Z59.01 Sheltered homelessness; Z91.148 Patient's other noncompliance with medication regimen for other reason; Z79.899 Other long term (current) drug therapy
CPT/HCPCS: 36415; 70450; 72125; 80053; 80307; 80329; 81001; 82140; 84436; 84443; 85025; 85610; 93005; 99283; J1953; G0480

== ENCOUNTER 2025-07-04 08:53 | Emergency (ER) | payer MEDICAID, SELFPAY ==
[2025-07-04 08:56] VITALS: PULSE 78; RESP 12; O2SAT 99; BMI 19.3
[2025-07-04 09:05] VITALS: BP 116/73; PULSE 77; RESP 18; TEMP 36.4; O2SAT 95
--- NOTE | 2025-07-04 09:05 | EKG_ITS ---
[facility] Test Date: 2025-07-04 Pat Name: PRIYA MICHELLE Department: Room: - Gender: Male Dial Marker: : 1960 Requested By: Luis Lara Order Number: [id number] Reading MD: Luis Lara Measurements Intervals [place] Rate: 72 P: 79 ME: 152 QRS: 78 QRSD: 89 T: 66 QT: 396 QTc: 435 Interpretive Statements SINUS RHYTHM NONSPECIFIC T-WAVE ABNORMALITY Compared to ECG 06/16/2025 10:16:31 T-wave abnormality now present /store/S0/[id number]/[id number]
[2025-07-04 09:16] VITALS: PULSE 68
--- NOTE | 2025-07-04 09:19 | PD.EDSEIZ ---
ED Seizures RME/HPI General Chief Complaint: Seizure Stated Complaint: SEIZURE Time Seen by Provider: 07/04/25 09:06 Arrival date/time: 07/04/25 08:53 RME / HPI RME / HPI Narrative: 09:19 65-year-old male with known seizure disorder, takes Keppra 500 mg 3 times daily, forgot to take his meds yesterday, presents via EMS after witnessed generalized seizure. Patient was outside a building when he had the seizure, by passers noticed and called EMS. Initially district fire management officer's arrived and gave patient 4 mg Narcan intranasal. No change. EMS arrived and transported the patient. Related Data Previous Rx's ?Medication ?Instructions ?Recorded levetiracetam 500 mg tablet 500 mg PO TID #90 tabs 02/29/24 amoxicillin 500 mg-potassium 1 tab PO BID #30 tabs 05/18/25 clavulanate 125 mg tablet (Augmentin) ibuprofen 600 mg tablet 600 mg PO TID PRN pain #30 tabs 05/18/25 Allergies Allergy/AdvReac Type Severity Reaction Status Date / Time No Known Allergies Allergy Verified 06/16/25 10:07 Review of Systems Review of Systems Systems Reviewed: All systems reviewed, normal except as documented Past Medical History Past Medical History NEUROLOGIC: Positive Neurological Disorders and Seizures CARDIAC: Positive Hypertension PSYCHO/SOCIAL: Positive Recreational Drug Use Family History FAMILY HISTORY: Positive Family Cardiac Disorders Surgical History SURGICAL: Positive Abdominal Surgery Social History SMOKING STATUS: Current some day smoker SECOND HAND EXPOSURE: No SUBSTANCE USE: marijuana and methamphetamine ED Exam Narrative Physical exam: See mdm Course Quality Measures none Orders Category Date Time Status Pharmacy Informaticist NOW Care 07/04/25 09:16 Active Continuous Pulse Oximetry NOW Care 07/04/25 09:16 Active EKG (ED ONLY) *Do not use* NOW Care 07/04/25 09:05 Completed Seizure precautions NOW Care 07/04/25 09:16 Active EKG (ED Only) Stat Exams 07/04/25 09:05 Draft CBC Stat Lab 07/04/25 09:47 Completed CK [Creatine Kinase] Stat Lab 07/04/25 09:47 Completed CMP [Comprehensive Metabolic Panel] Stat Lab 07/04/25 09:47 Completed Lactic Acid [Lactate (Lactic Acid)] Stat Lab 07/04/25 09:47 Results Diazepam Inj [Valium Inj] Med 07/04/25 09:16 Discontinued 5 mg IVP X1 ONE Sodium Chloride 0.9% 1000 ml [Ns] 1,000 ml Med 07/04/25 09:18 Discontinued IV 999 mls/hr levETIRAcetam INJ [Keppra Inj] Med 07/04/25 09:16 Discontinued 1,000 mg IVP X1 ONE Vital Signs Vital signs: Vital Signs Temperature 97.5 F 07/04/25 09:05 Pulse Rate 77 07/04/25 09:05 Respiratory Rate 18 07/04/25 09:05 Blood Pressure 116/73 07/04/25 09:05 Pulse Oximetry (%) 95 07/04/25 09:05 Oxygen Delivery Method Room Air 07/04/25 09:05 Pulse ox is 95% on room air which is adequate. Seizure MDM Narrative MDM Narrative:: This section includes all my notes and documentations, including HPI, PE, and ED course. Charan Tellez MD ? HPI: 65 year old male with history of seizures, noncompliant with medications (possibly Keppra) presented to the ED BIB from homeless alf for evaluation following a seizure today. Per medics, patient was given 4 mg IN Narcan by fire department without change. Plan is seizure precautions, blood work, load with Keppra, give 5 mg Valium, a liter normal saline and reevaluate. ROS: All negative except as documented in HPI. ? Physical Exam: GENERAL APPEARANCE: alert and oriented x 4, well-developed, well-nourished, no acute distress, normal vital signs HEENT: Normocephalic, atraumatic, no scalp contusions, no facial trauma; pupils equal, round, reactive to light; EOMI; mucous membranes pink, moist; oropharynx clear NECK: Supple LUNGS: CTABL; no wheezes, no rales, no rhonchi HEART: Regular rate, regular rhythm; normal S1, S2; no murmurs ABDOMEN: non distended; normal BS; soft, no tenderness, no guarding, no rebound; no masses, no organomegaly, no hernia BACK: no CVA tenderness, no midline C-spine tenderness EXTREMITIES: atraumatic; no edema NEUROLOGIC: awake; alert and oriented x4; cranial nerves II-XII grossly intact; no focal sensory or motor deficits PSYCHIATRIC: appropriate mood and affect SKIN: warm, dry, normal color; no rashes ? I reviewed EMS notes. Blood tests and urine test: No leukocytosis, AST/ALT is elevated through chronically elevated I reviewed the EKG @ 0904h: Normal sinus rhythm, rate 72, normal axis, no ectopy, generalized ST abnormalities, no STEMI. At this point, diagnoses include: Breakthrough seizure, noncompliance with medication regimen ? Treatment here included: 1,000mg IVP Keppra, 5mg IVP Diazepam, and 1L of IV NS. ? Significant improvement noted. ? Recommended outpatient care. ? Based on my best medical judgment, made decision no further evaluation or treatment indicated at this time. Patient understands and agrees to the customized discharge instructions and printed, see below. ? Discharge instructions from Dr. Tellez: Today you were seen in the emergency department for a breakthrough seizure. Although your blood tests and EKG are reassuring and basically normal and your vital signs are stable and normal. Today you received 1000 mg Keppra IV as well as Valium IV and IV fluids Please return to the emergency department if you have any worsening or any further medical problems and we will help you. Please call your primary care doctor's office within the next several days. Patient data External records reviewed:: [facility] previous records (I reviewed ED visit on 06/16/2025 for seizure ) and EMS form Clinical information provided by:: patient and EMS Social determinants that could affect healthcare access:: none Patient has the following chronic illnesses:: Seizures, medication non compliance How is presenting disease/condition affected by chronic disease/condition?: exacerbated by Evaluation data The following diagnostics were reviewed and interpreted by me:: lab results Lab and/or radiology exams considered but not ordered:: None Interpretation Summary: See mdm Medications / Prescriptions Medications or Prescriptions considered but not ordered:: None Medication administrations:: Medication Administration History Discontinued Medications Diazepam (Diazepam Inj 5 Mg/Ml Vial 2 Ml) 5 mg IVP X1 ONE Stop: 07/04/25 09:17 Last Admin: 07/04/25 09:45 Dose: 5 mg Documented By: EVER Sodium Chloride (Ns) 1,000 mls @ 999 mls/hr IV .Q1H1M ONE Stop: 07/04/25 10:18 Last Infusion: 07/04/25 10:47 Dose: Infused Documented By: Admin: 07/04/25 09:46 Dose: 999 mls/hr Documented By: EVER Levetiracetam (Levetiracetam Inj 100 Mg/Ml Vial 5ml) 1,000 mg IVP X1 ONE Stop: 07/04/25 09:17 Last Admin: 07/04/25 09:43 Dose: 1,000 mg Documented By: EVER See above Consultations Consultation(s) initiated? (list below): No Diagnosis Seizure Differential Diagnosis: intractable seizure disorder, focal seizure, generalized seizure and epileptic seizure Most likely diagnosis given after review of the tests above:: Breakthrough seizure, noncompliance with medication regimen Admission Indicated Admission indicated?: not indicated Admission Request Was there a request for admission?: No Disposition Plan Disposition Plan: Discharge Discharge Attestation Discharge Attestation: The patient and all family members were given an opportunity to ask questions and understood the discharge instructions. Discharge instructions specifically effects, indications for sooner follow up or return to the emergency department, and the expected course of current diagnosis. Patient condition: Stable Discharge Plan Plan Patient Disposition: HOME (Self Care) Discharge Disposition comment: Stable for discharge home Patient condition on transfer: Stable Prescriptions/Referrals Prescriptions/Med Rec: No Action amoxicillin-pot clavulanate [Augmentin] 500-125 mg tablet 1 tab PO BID Qty: 30 0RF ibuprofen 600 mg tablet 600 mg PO TID PRN (Reason: pain) Qty: 30 0RF levetiracetam 500 mg tablet 500 mg PO TID Qty: 90 0RF Referrals: Erik Alba MD [Primary Care Provider, Family Practice] - In 1 week Problem List Clinical Impression: Breakthrough seizure, Noncompliance with medication regimen Patient/Caregiver Discharge Instructions Discharge Activity: activity as tolerated Diet Instructions: No restrictions Education Materials: ED Seizure, Recurrent (Adult) Additional Instructions: Today you were seen in the emergency department for a breakthrough seizure. Although your blood tests and EKG are reassuring and basically normal and your vital signs are stable and normal. Today you received 1000 mg Keppra IV as well as Valium IV and IV fluids Please return to the emergency department if you have any worsening or any further medical problems and we will help you. Please call your primary care doctor's office within the next several days. Print Language: Danish Stand Alone Forms: Linda Award Info., Patient Portal Info Letter
[2025-07-04] MEDS: levETIRAcetam INJ 100 MG/ML VIAL 5ML 1000 MG IVP (09:43)
[2025-07-04] MEDS: DIAZEPAM INJ 5 MG/ML VIAL 2 ML IVP (09:45)
[2025-07-04] MEDS: SODIUM CHLORIDE 0.9% 1000 ML 1,000 ML 999 ML IV (09:46)
[2025-07-04 10:06] LABS: Lactate (Lactic Acid) 3.0 mMol/L (0.4-2.0)
[2025-07-04 10:15] LABS: Basophils # (Auto) 0.0 Thou/mm3 (0.0-0.2); Basophils % (Auto) 1 % (0-2.5); Eosinophils # (Auto) 0.0 Thou/mm3 (0.0-0.5); Eosinophils % (Auto) 0 % (0-10); Hematocrit 38.1 % (41.0-53.0); Hemoglobin 13.0 g/dL (13.5-16.0); Immature Granulocytes Auto 0.01 Thou/mm3 (0.00-0.00); Lymphocytes # (Auto) 1.1 Thou/mm3 (1.0-4.8); Lymphocytes % (Auto) 28 % (10-50); Mean Corpuscular HGB Conc 34.1 g/dl (31.0-37.0); Mean Corpuscular Hemoglobin 33.1 pg (25.0-35.0); Mean Corpuscular Volume 97 fL (80-100); Monocytes # (Auto) 0.4 Thou/mm3 (0.0-0.8); Monocytes % (Auto) 10 % (0-12); Neutrophils # (Auto) 2.3 Thou/mm3 (1.8-7.7); Neutrophils % (Auto) 61 % (37-80); Nucleated Red Blood Cell # 0.00 Thou/mm3 (0.00-0.00); Nucleated Red Blood Cell % 0 /100 WBC (0); Platelet Count 132 Thou/mm3 (140-440); RDW Standard Deviation 46.0 fL (35.1-43.9); Red Blood Count 3.93 Miln/mm3 (4.50-5.90); White Blood Count 3.9 Thou/mm3 (3.8-10.6)
[2025-07-04 10:27] LABS: Alanine Aminotransferase 89 U/L (10-49); Albumin, Serum 3.3 gm/dL (3.4-4.8); Albumin/Globulin Ratio 0.8 (1.2-2.2); Alkaline Phosphatase 128 U/L (46-116); Anion Gap 10 (7-16); Aspartate Amino Transferase 158 U/L (0-34); BUN/Creatinine Ratio 12 Ratio (12-20); Bilirubin,Total 0.9 mg/dL (0.3-1.2); Blood Urea Nitrogen 7 mg/dL (9-23); Calcium 8.9 mg/dL (8.3-10.6); Calcium (Corrected) 9.5 mg/dL (8.5-10.1); Carbon Dioxide 26.8 mMol/L (20.0-31.0); Chloride 103 mMol/L (98-107); Creatine Kinase 153 U/L (34-171); Creatinine (Component) 0.6 mg/dL (0.6-1.3); Estimated Creatinine Clearance 97.0 mL/min (>60); Globulin 3.9 gm/dL (2.3-3.5); Glucose 88 mg/dL (74-106); Osmolality,Calculated 276 (275-295); Potassium 4.0 mMol/L (3.4-5.1); Sodium 140 mMol/L (136-145); Total Protein 7.2 gm/dL (5.7-8.2); eGFR > 60 See Note
[2025-07-04 12:00] VITALS: BP 159/88; PULSE 55; RESP 16; TEMP 36.6; O2SAT 99
[2025-07-04 13:03] LABS: Reflex Lactate? Y
[2025-07-04 13:32] LABS: Lactic Acid, 3 HR 1.4 mMol/L (0.4-2.0)
[2025-07-04 14:53] VITALS: BP 161/94; PULSE 61; RESP 16; TEMP 36.4; O2SAT 97
== END 2025-07-04 14:54 | disposition home or self-care (01) ==
PROVIDERS: Emergency Provider Emergency Medicine; PCP Family Medicine
DX: R56.9 Unspecified convulsions (principal); Z91.148 Patient's other noncompliance with medication regimen for other reason; R94.31 Abnormal electrocardiogram [ECG] [EKG]
CPT/HCPCS: 36415; 80053; 82550; 83605; 85025; 93005; 96361; 96374; 96375; 99283; J1953; J3360; J7030

== ENCOUNTER 2025-07-12 09:23 | Emergency (ER) | payer MEDICAID, SELFPAY ==
[2025-07-12 09:24] VITALS: PULSE 65; RESP 18; O2SAT 96
[2025-07-12 09:28] VITALS: BP 144/80; PULSE 70; RESP 15; TEMP 36.5; O2SAT 99
[2025-07-12 09:30] VITALS: BMI 19.5
[2025-07-12] MEDS: levETIRAcetam INJ 100 MG/ML VIAL 5ML 1000 MG IVP (09:36)
--- NOTE | 2025-07-12 09:42 | PD.EDSEIZ ---
ED Seizures RME/HPI General Chief Complaint: Seizure Stated Complaint: SEIZURE Time Seen by Provider: 07/12/25 09:25 Arrival date/time: 07/12/25 09:23 RME / HPI RME / HPI Narrative: 65 year old male with history of seizures, medication noncompliance, [facility] after a witnessed seizure lasting ~ 5 minutes. Per medics, on scene patient was a GCS of 14, appeared postictal, and FSBS 95. No medications were administered en route. While in the ED patient has no complaints. Related Data Previous Rx's ?Medication ?Instructions ?Recorded levetiracetam 500 mg tablet 500 mg PO TID #90 tabs 02/29/24 amoxicillin 500 mg-potassium 1 tab PO BID #30 tabs 05/18/25 clavulanate 125 mg tablet (Augmentin) ibuprofen 600 mg tablet 600 mg PO TID PRN pain #30 tabs 05/18/25 Allergies Allergy/AdvReac Type Severity Reaction Status Date / Time No Known Allergies Allergy Verified 07/12/25 09:28 Review of Systems Review of Systems Systems Reviewed: All systems reviewed, normal except as documented Past Medical History Past Medical History NEUROLOGIC: Positive Neurological Disorders and Seizures CARDIAC: Positive Hypertension PSYCHO/SOCIAL: Positive Recreational Drug Use Family History FAMILY HISTORY: Positive Family Cardiac Disorders Surgical History SURGICAL: Positive Abdominal Surgery Social History SMOKING STATUS: Current some day smoker SECOND HAND EXPOSURE: No SUBSTANCE USE: marijuana and methamphetamine ED Exam Narrative Physical exam: GENERAL APPEARANCE: Appears postictal, well-developed, well-nourished HEENT: Normocephalic, atraumatic; pupils equal, round, reactive to light; EOMI; mucous membranes pink, moist; oropharynx clear NECK: Supple LUNGS: CTABL; no wheezes, no rales, no rhonchi HEART: Regular rate, regular rhythm; normal S1, S2; no murmurs ABDOMEN: non distended; normal BS; soft, no tenderness, no guarding, no rebound; no masses, no organomegaly, no hernia BACK: no CVA tenderness EXTREMITIES: atraumatic; no edema NEUROLOGIC: Appears postictal; cranial nerves II-XII grossly intact PSYCHIATRIC: appropriate mood and affect SKIN: warm, dry, normal color; no rashes Course Course Course Narrative: 1130: The patient is awake, alert, answering questions appropriately. Patient has returned to baseline. Will DC home. Quality Measures none Orders Category Date Time Status levETIRAcetam INJ [Keppra Inj] Med 07/12/25 09:25 Discontinued 1,000 mg IVP X1 ONE Vital Signs Vital signs: Vital Signs Temperature 97.7 F 07/12/25 09:28 Pulse Rate 70 07/12/25 09:28 Respiratory Rate 15 07/12/25 09:28 Blood Pressure 144/80 H 07/12/25 09:28 Pulse Oximetry (%) 99 07/12/25 09:28 Oxygen Delivery Method Room Air 07/12/25 09:28 Pulse ox is 99% on room air which is adequate. Seizure MDM Narrative MDM Narrative:: Sirisha Cheek am scribing for and in the presence of Dr. Zaragoza. Patient data External records reviewed:: [facility] previous records (I reviewed ED Visit on 07/04/2025 ) and EMS form Clinical information provided by:: patient and EMS Social determinants that could affect healthcare access:: housing (homeless ) Patient has the following chronic illnesses:: Seizures, medication noncompliance How is presenting disease/condition affected by chronic disease/condition?: exacerbated by Evaluation data The following diagnostics were reviewed and interpreted by me:: other (specify) (No diagnostics ordered ) Lab and/or radiology exams considered but not ordered:: None Interpretation Summary: N/A Medications / Prescriptions Medications or Prescriptions considered but not ordered:: None Medication administrations:: Medication Administration History Discontinued Medications Levetiracetam (Levetiracetam Inj 100 Mg/Ml Vial 5ml) 1,000 mg IVP X1 ONE Stop: 07/12/25 09:26 Last Admin: 07/12/25 09:36 Dose: 1,000 mg Documented By: GM See above Consultations Consultation(s) initiated? (list below): No Diagnosis Seizure Differential Diagnosis: intractable seizure disorder, generalized seizure and epileptic seizure Most likely diagnosis given after review of the tests above:: Recurrent seizures Admission Indicated Admission indicated?: not indicated Admission Request Was there a request for admission?: No Disposition Plan Disposition Plan: Discharge Discharge Attestation Discharge Attestation: The patient and all family members were given an opportunity to ask questions and understood the discharge instructions. Discharge instructions specifically effects, indications for sooner follow up or return to the emergency department, and the expected course of current diagnosis. Patient condition: Stable Discharge Plan Plan Patient Disposition: HOME (Self Care) Prescriptions/Referrals Prescriptions/Med Rec: No Action amoxicillin-pot clavulanate [Augmentin] 500-125 mg tablet 1 tab PO BID Qty: 30 0RF ibuprofen 600 mg tablet 600 mg PO TID PRN (Reason: pain) Qty: 30 0RF levetiracetam 500 mg tablet 500 mg PO TID Qty: 90 0RF Referrals: Erik Alba MD [Primary Care Provider, Family Practice] - In 1 week Problem List Clinical Impression: Recurrent seizures Patient/Caregiver Discharge Instructions Education Materials: ED Seizure, Recurrent (Adult) Print Language: Ivorian Stand Alone Forms: Linda Award Info., Patient Portal Info Letter
[2025-07-12 11:18] VITALS: BP 151/82; PULSE 55; RESP 13; TEMP 36.4; O2SAT 99
== END 2025-07-12 11:45 | disposition home or self-care (01) ==
PROVIDERS: Emergency Provider Emergency Medicine; PCP Family Medicine
DX: R56.9 Unspecified convulsions (principal); Z59.01 Sheltered homelessness
CPT/HCPCS: 96374; 99282; J1953

== ENCOUNTER 2025-07-23 06:44 | Emergency (ER) | payer MEDICAID, SELFPAY ==
[2025-07-23 06:45] VITALS: BP 159/88; PULSE 77; RESP 19; TEMP 36.4; O2SAT 100
--- NOTE | 2025-07-23 07:02 | PD.EDSEIZ ---
ED Seizures RME/HPI General Chief Complaint: Seizure Stated Complaint: SEIZURE Time Seen by Provider: 07/23/25 06:47 Arrival date/time: 07/23/25 06:44 Limitations: no limitations RME / HPI RME / HPI Narrative: DR. RIO HERR ED EVALUATION: 65-year-old male with past medical history of epilepsy presents to the Emergency Department after a breakthrough seizure. He reports compliance with his antiseizure medications. He sustained a small abrasion to the top of his head and right elbow during the event. No other symptoms reported at this time. Denies fevers chills nausea vomiting chest pain cough abdominal pain dysuria hematuria melena bloody stools. No allergies to medications Related Data Previous Rx's ?Medication ?Instructions ?Recorded levetiracetam 500 mg tablet 500 mg PO TID #90 tabs 02/29/24 amoxicillin 500 mg-potassium 1 tab PO BID #30 tabs 05/18/25 clavulanate 125 mg tablet (Augmentin) ibuprofen 600 mg tablet 600 mg PO TID PRN pain #30 tabs 05/18/25 Allergies Allergy/AdvReac Type Severity Reaction Status Date / Time No Known Allergies Allergy Verified 07/12/25 09:28 Review of Systems Review of Systems Systems Reviewed: All systems reviewed, normal except as documented Past Medical History Past Medical History NEUROLOGIC: Positive Neurological Disorders and Seizures CARDIAC: Positive Hypertension PSYCHO/SOCIAL: Positive Recreational Drug Use Family History FAMILY HISTORY: Positive Family Cardiac Disorders Surgical History SURGICAL: Positive Abdominal Surgery Social History SMOKING STATUS: Current some day smoker SECOND HAND EXPOSURE: No SUBSTANCE USE: marijuana and methamphetamine ED Exam General Limitations: Present no limitations General appearance: Present alert and in no apparent distress Head Head exam: Present other (small abrasion to the top of his head) Eye Eye exam: Present normal appearance, PERRL and EOMI ENT ENT exam: Present normal exam, normal oropharynx and mucous membranes moist Neck Neck exam: Present normal inspection, full ROM and trachea midline Chest Chest inspection: Present normal inspection and symmetric chest wall rise Respiratory Respiratory exam: Present normal lung sounds bilaterally Cardiovascular Cardiovascular exam: Present regular rate, normal rhythm and normal heart sounds Abdominal Exam Abdominal exam: Present soft; Absent distention, tenderness or guarding Extremities Exam Extremities exam: Present full ROM and other (right elbow abrasion, no tenderness palpation all 4 extremities, 2+ radial pulses bilateral upper extremity symmetric intact, lower extremities, warm and perfused) Back Exam Back exam: Present normal inspection and full ROM Neurological Exam Neurological exam: Present alert, oriented X3 and CN II-XII intact Psychiatric Psychiatric exam: Present normal affect and normal mood Skin Skin exam: Present warm, dry and normal color Course Quality Measures none Orders Category Date Time Status EKG (ED ONLY) *Do not use* NOW Care 07/23/25 07:[address] head/brain wo con Stat Exams 07/23/25 07:05 Completed EKG (ED Only) Stat Exams 07/23/25 07:18 Draft XR elbow comp RT min 3V Stat Exams 07/23/25 07:05 Completed CBC Stat Lab 07/23/25 08:48 Completed CMP [Comprehensive Metabolic Panel] Stat Lab 07/23/25 08:48 Completed Drug Screen,Urine Stat Lab 07/23/25 07:50 Completed PT [Prothrombin Time with INR] Stat Lab 07/23/25 08:48 Completed UA, C/S IF [Urinalysis, C/S if Indicated] Stat Lab 07/23/25 07:50 Completed levETIRAcetam INJ [Keppra Inj] Med 07/23/25 06:47 Discontinued 1,000 mg IVP X1 ONE Vital Signs Vital signs: Vital Signs Temperature 97.6 F 07/23/25 06:45 Pulse Rate 77 07/23/25 06:45 Respiratory Rate 19 07/23/25 06:45 Blood Pressure 159/88 H 07/23/25 06:45 Pulse Oximetry (%) 100 07/23/25 06:45 Oxygen Delivery Method Nasal Cannula 07/23/25 06:45 Seizure MDM Narrative MDM Narrative:: 65-year-old male with known epilepsy presents with a breakthrough seizure despite he reports compliance with his antiseizure medications. Plan includes CBCs, CMP, PT, U/A, drug screen, elbow XR, a head CT, and observation. If patient remains hemodynamically stable without any acute abnormalities identified today's workup, patient is to follow-up with a neurologist as an outpatient. Labs without any significant acute hematologic or metabolic disturbances, patient does have a transaminitis however he is at his baseline. Urinalysis without evidence of infection however he does have methamphetamines and marijuana in his system. Head CT and elbow x-ray unremarkable. On reevaluation multiple hours, patient hemodynamically stable not in distress has been at his neurologic baseline we will discharge home with close return precautions follow-up with primary care doctor Nicki Cheek am scribing for and in the presence of Dr. Redding. Patient data External records reviewed:: [facility] previous records and EMS form Clinical information provided by:: patient and EMS Social determinants that could affect healthcare access:: none Patient has the following chronic illnesses:: Epilepsy How is presenting disease/condition affected by chronic disease/condition?: caused by Evaluation data The following diagnostics were reviewed and interpreted by me:: lab results, radiology exam(s) and EKG tracing(s) (My interpretation: EKG performed at 0719 hours, sinus rhythm, rate 65, no cardiac alert) Lab and/or radiology exams considered but not ordered:: none Interpretation Summary: See MDM narrative above. RADIOLOGY Procedure(s): CT head/brain wo con Accession Number(s): [id number] cc: Erik Alba MD; Fermín Stone MD; Sheri Redding MD~ Examination: CT brain head without contrast. 2-D sagittal coronal reconstructions Date and time of exam:July 23, 2025, 0820 hrs., Comparison June 16, 2025 Indications: Seizure today CTDI: vol (mGy):44.3 DLP: (mGycm):853 Technique: Multiple CT axial sections of the brain have been obtained, 5 mm slice thickness. Contrast has not been administered. 2-D sagittal, coronal reconstructions have been obtained Low dose protocols were performed. One or more of the following dose reduction techniques were used; automated exposure control, adjustment of the mA and/or KV according to patient size, use of iterative reconstruction technique. Findings: No significant ventricular enlargement. Intra-axial or extra-axial hemorrhage density is not seen. No mass effect or midline shift Basal cisterns are not remarkable. Fourth ventricle is midline. Cranial vault intact. Impression: Negative for acute hemorrhage, mass effect or midline shift Advise clinical correlation follow-up accordingly Dictated By: Fermín Stone MD Procedure(s): XR elbow comp RT min 3V Accession Number(s): [id number] cc: Erik Alba MD; Fermín Stone MD; Sheri Redding MD~ Examination: Right elbow 3 views Technique: Elbow AP, oblique, lateral 3 views Exam date and time: July 23, 2025, 0800 hrs. Indications: Seizure today, patient fell with injury to the elbow, elbow pain. Findings: No fracture or dislocation. No foreign body Impression: No fracture or dislocation.. Dictated By: Fermín Stone MD Medications / Prescriptions Medications or Prescriptions considered but not ordered:: none Medication administrations:: Medication Administration History Discontinued Medications Levetiracetam (Levetiracetam Inj 100 Mg/Ml Vial 5ml) 1,000 mg IVP X1 ONE Stop: 07/23/25 06:48 Last Admin: 07/23/25 07:39 Dose: 1,000 mg Documented By: JT see above Consultations Consultation(s) initiated? (list below): No Diagnosis Seizure Differential Diagnosis: other (Breakthrough seizure, subtherapeutic antiseizure medication level, and metabolic derangement.) Most likely diagnosis given after review of the tests above:: Seizure Admission Indicated Admission indicated?: not indicated Admission Request Was there a request for admission?: No Disposition Plan Disposition Plan: Discharge Discharge Attestation Discharge Attestation: The patient and all family members were given an opportunity to ask questions and understood the discharge instructions. Discharge instructions specifically effects, indications for sooner follow up or return to the emergency department, and the expected course of current diagnosis. Patient condition: Stable Discharge Plan Plan Patient Disposition: HOME (Self Care) Patient condition on transfer: Stable Prescriptions/Referrals Prescriptions/Med Rec: No Action amoxicillin-pot clavulanate [Augmentin] 500-125 mg tablet 1 tab PO BID Qty: 30 0RF ibuprofen 600 mg tablet 600 mg PO TID PRN (Reason: pain) Qty: 30 0RF levetiracetam 500 mg tablet 500 mg PO TID Qty: 90 0RF Referrals: Erik Alba MD [Primary Care Provider, Family Practice] - In 1 week Problem List Clinical Impression: Seizure Patient/Caregiver Discharge Instructions Education Materials: ED Seizure New Onset Unknown ... Additional Instructions: Please follow-up with your primary care physician within a week. Take your medications as described. We recommend that you stop taking methamphetamine and marijuana. Return to the Emergency Department as needed. Print Language: Prydeinig Stand Alone Forms: Linda Award Info., Patient Portal Info Letter
--- NOTE | 2025-07-23 07:05 | XR_ITS ---
Examination: Right elbow 3 views Technique: Elbow AP, oblique, lateral 3 views Exam date and time: July 23, 2025, 0800 hrs. Indications: Seizure today, patient fell with injury to the elbow, elbow pain. Findings: No fracture or dislocation. No foreign body Impression: No fracture or dislocation..
--- NOTE | 2025-07-23 07:05 | XR_ITS ---
Examination: CT brain head without contrast. 2-D sagittal coronal reconstructions Date and time of exam:July 23, 2025, 0820 hrs., Comparison June 16, 2025 Indications: Seizure today CTDI: vol (mGy):44.3 DLP: (mGycm):853 Technique: Multiple CT axial sections of the brain have been obtained, 5 mm slice thickness. Contrast has not been administered. 2-D sagittal, coronal reconstructions have been obtained Low dose protocols were performed. One or more of the following dose reduction techniques were used; automated exposure control, adjustment of the mA and/or KV according to patient size, use of iterative reconstruction technique. Findings: No significant ventricular enlargement. Intra-axial or extra-axial hemorrhage density is not seen. No mass effect or midline shift Basal cisterns are not remarkable. Fourth ventricle is midline. Cranial vault intact. Impression: Negative for acute hemorrhage, mass effect or midline shift Advise clinical correlation follow-up accordingly
--- NOTE | 2025-07-23 07:18 | EKG_ITS ---
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
[2025-07-23 07:21] VITALS: PULSE 70; RESP 16; O2SAT 98; BMI 20.1
[2025-07-23] MEDS: levETIRAcetam INJ 100 MG/ML VIAL 5ML 1000 MG IVP (07:39)
[2025-07-23 08:24] LABS: Collection Type, Urine Clean Catch; Squamous Epithelial Cell,Urine 0 /hpf (0-5)
[2025-07-23 08:46] LABS: Bilirubin,Urine Negative (Negative); Blood,Urine Negative (Negative); Clarity,Urine Clear (Clear/Hazy); Color,Urine Lt-Yellow (Lt Yel-Yel); Culture Indicated,Urine Not Indicated; Glucose, Urine Negative (Negative); Ketones,Urine Negative (Negative); Leukocyte Esterase,Urine Negative (Negative); Nitrite,Urine Negative (Negative); PH,Urine 6.0 (5.0-7.0); Protein,Urine Trace (Neg - Trace); RBC,Urine 1 /hpf (0-3); Specific Gravity,Urine 1.016 (1.001-1.035); Sperm,Urine Present; Urobilinogen,Urine Negative mg/dL (0.0-1.0); WBC,Urine < 1 /hpf (0-5)
[2025-07-23 08:54] LABS: Amphetamine/Methamp Scrn,U Positive (Negative); Barbiturate Screen,Urine Negative (Negative); Benzodiazepines Screen,Urine Negative (Negative); Benzoylecgonine Screen, Ur Negative (Negative); Fentanyl Screen,Urine Negative (Negative); Opiate Screen,Urine Negative (Negative); THC Screen,Urine Positive (Negative)
[2025-07-23 09:24] LABS: Alanine Aminotransferase 96 U/L (10-49); Albumin, Serum 3.5 gm/dL (3.4-4.8); Albumin/Globulin Ratio 0.9 (1.2-2.2); Alkaline Phosphatase 140 U/L (46-116); Anion Gap 6 (7-16); Aspartate Amino Transferase 140 U/L (0-34); BUN/Creatinine Ratio 18 Ratio (12-20); Bilirubin,Total 0.8 mg/dL (0.3-1.2); Blood Urea Nitrogen 9 mg/dL (9-23); Calcium 8.5 mg/dL (8.3-10.6); Calcium (Corrected) 8.9 mg/dL (8.5-10.1); Carbon Dioxide 26.0 mMol/L (20.0-31.0); Chloride 107 mMol/L (98-107); Creatinine (Component) 0.5 mg/dL (0.6-1.3); Estimated Creatinine Clearance 121.3 mL/min (>60); Globulin 4.0 gm/dL (2.3-3.5); Glucose 92 mg/dL (74-106); Osmolality,Calculated 276 (275-295); Potassium 3.7 mMol/L (3.4-5.1); Sodium 139 mMol/L (136-145); Total Protein 7.5 gm/dL (5.7-8.2); eGFR > 60 See Note
[2025-07-23 09:26] LABS: Basophils # (Auto) 0.0 Thou/mm3 (0.0-0.2); Basophils % (Auto) 0 % (0-2.5); Eosinophils # (Auto) 0.0 Thou/mm3 (0.0-0.5); Eosinophils % (Auto) 0 % (0-10); Hematocrit 34.4 % (41.0-53.0); Hemoglobin 11.8 g/dL (13.5-16.0); Immature Granulocytes Auto 0.01 Thou/mm3 (0.00-0.00); Lymphocytes # (Auto) 0.8 Thou/mm3 (1.0-4.8); Lymphocytes % (Auto) 18 % (10-50); Mean Corpuscular HGB Conc 34.3 g/dl (31.0-37.0); Mean Corpuscular Hemoglobin 33.8 pg (25.0-35.0); Mean Corpuscular Volume 99 fL (80-100); Monocytes # (Auto) 0.3 Thou/mm3 (0.0-0.8); Monocytes % (Auto) 6 % (0-12); Neutrophils # (Auto) 3.4 Thou/mm3 (1.8-7.7); Neutrophils % (Auto) 75 % (37-80); Nucleated Red Blood Cell # 0.00 Thou/mm3 (0.00-0.00); Nucleated Red Blood Cell % 0 /100 WBC (0); Platelet Count 142 Thou/mm3 (140-440); RDW Standard Deviation 49.1 fL (35.1-43.9); Red Blood Count 3.49 Miln/mm3 (4.50-5.90); White Blood Count 4.5 Thou/mm3 (3.8-10.6)
[2025-07-23 09:29] LABS: INR 1.1 (0.9-1.3); Prothrombin Time 12.4 Seconds (9.0-12.2)
[2025-07-23 11:29] VITALS: BP 149/82; PULSE 55; RESP 16; TEMP 37; O2SAT 99
[2025-07-23 11:41] VITALS: BP 149/82; PULSE 55; RESP 16; TEMP 37; O2SAT 99
== END 2025-07-23 11:41 | disposition home or self-care (01) ==
PROVIDERS: Emergency Provider Emergency Medicine; PCP Family Medicine
DX: G40.909 Epilepsy, unspecified, not intractable, without status epilepticus (principal); S50.311A Abrasion of right elbow, initial encounter; S00.01XA Abrasion of scalp, initial encounter; I10 Essential (primary) hypertension; W19.XXXA Unspecified fall, initial encounter; F17.200 Nicotine dependence, unspecified, uncomplicated
CPT/HCPCS: 36415; 70450; 73080; 80053; 80307; 81001; 85025; 85610; 93005; 96374; 99284; J1953

== ENCOUNTER 2025-08-03 10:38 | Emergency (ER) | payer MEDICAID, SELFPAY ==
[2025-08-03 10:56] VITALS: BP 133/72; PULSE 73; RESP 18; TEMP 36.6; O2SAT 95; BMI 24.2
[2025-08-03 11:02] VITALS: PULSE 70; RESP 18; O2SAT 98
--- NOTE | 2025-08-03 11:17 | XR_ITS ---
EXAMINATION: AP chest single view TECHNIQUE: AP portable upright chest single view Date and time: August 03, 2025, 12:47 p.m. INDICATIONS: Seizure today FINDINGS: Normal heart size. No aspiration pneumonia Prominent osteopenia IMPRESSION: Negative for aspiration pneumonia
--- NOTE | 2025-08-03 11:18 | EDNOTE_ITS ---
<Statement entered by Maryanne Zaragoza MD - 08/15/25 14:16> As co-signing physician, I was present and available for consult prn. I concur with the plan and care as documented by the midlevel provider. ED Seizures RME/HPI General Chief Complaint: Seizure Stated Complaint: SEIZURES Time Seen by Provider: 08/03/25 11:13 Arrival date/time: 08/03/25 10:38 RME / HPI RME / HPI Narrative: 65-year-old male patient came in for evaluation regarding seizure. Patient was witnessed having tonic-clonic seizure lasting for few seconds. According to the patient he was watching TV when it happened. Patient denies any injury related to the seizure. Patient told me that he did not take his Keppra for more than a month due to pharmacy problem. Patient denies any headache denies any chest pain denies any abdominal pain denies any other complaints. Related Data Previous Rx's ?Medication ?Instructions ?Recorded levetiracetam 500 mg tablet 500 mg PO TID #90 tabs 03/19 amoxicillin 500 mg-potassium 1 tab PO BID #30 tabs clavulanate 125 mg tablet (Augmentin) ibuprofen 600 mg tablet 600 mg PO TID PRN pain #30 t abs 05/18/25 levetiracetam 500 mg tablet 500 mg PO Q12H #10 tabs (Keppra) levetiracetam 500 mg tablet 500 mg PO BID #60 tabs 06/20 (Keppra) Allergies Allergy/AdvReac Type Severity Reaction Status Date / Time No Known Allergies Allergy Verified 08/03/25 11:13 Review of Systems Review of Systems Narrative Review of Systems: Review of system reviewed and within normal limits except mentioned in HPI ED Exam Narrative Physical exam: VITAL SIGNS: Reviewed. GENERAL APPEARANCE: Alert and interactive, follows commands, no acute distress, HEAD AND FACE: Non-traumatic. ENT: PERRL, pink conjunctivitis, eyelid no trauma, Mucous membrane moist. NECK: Supple, nontender, no nuchal rigidity. CHEST: No tenderness, no crepitus, no paradoxical movement, no retractions. LUNGS: Clear, well ventilated, symmetric, no rales, no wheezing, no ronchi, no stridor, good breath sounds bilaterally. HEART: Regular rate, regular rhythm, no murmur, no gallops. ABDOMEN: Soft, positive bowel sounds, nondistended, no guarding, nontender, no rebound, no masses, RECTAL: Deferred. GENITAL: Deferred. NEUROLOGICAL: Gross motor function intact sensory function intact, Appropriate for age. MUSCULOSKELETAL: low back nontender, full range of motion. EXTREMITIES: Nontender, full range of motion. SKIN: Color pink, dry, no rash, no lacerations, no abrasions, no contusions. LYMPHATICS: Deferred. Course Quality Measures none Orders Category Date Time Status XR chest 1V Stat Exams 08/03/25 11:17 Completed CBC Stat Lab 08/03/25 12:06 Completed Comprehensive Metabolic Panel Stat Lab 08/03/25 12:06 Completed Partial Thromboplastin Time Stat Lab 08/03/25 12:06 Completed Urinalysis, C/S if Indicated Stat Lab 08/03/25 14:28 Completed Ringers Lactated 1000 ml [Lactated Ringers] 1,000 ml Med 08/03/25 11:18 Discontinued IV 999 mls/hr levETIRAcetam INJ [Keppra Inj] Med 08/03/25 11:17 Discontinued 1,000 mg IVP X1 ONE Vital Signs Vital signs: Vital Signs Temperature 97.8 F 08/03/25 10:56 Pulse Rate 73 08/03/25 10:56 Respiratory Rate 18 08/03/25 10:56 Blood Pressure 133/72 H 08/03/25 10:56 Pulse Oximetry (%) 95 08/03/25 10:56 Oxygen Delivery Method Room Air 08/03/25 10:56 Seizure MDM Narrative MDM Narrative:: 65-year-old male patient came in for evaluation regarding seizure. Patient was witnessed having tonic-clonic seizure lasting for few seconds. According to the patient he was watching TV when it happened. Patient denies any injury related to the seizure. Patient told me that he did not take his Keppra for more than a month due to pharmacy problem. Patient denies any headache denies any chest pain denies any abdominal pain denies any other complaints. Patient's workup today all came back unremarkable. Patient received Keppra IV. No recurrence of seizure noted in the ED. Patient will be prescribed Keppra Stable for discharge home Patient data External records reviewed:: None Clinical information provided by:: patient Social determinants that could affect healthcare access:: alcohol use Patient has the following chronic illnesses:: Seizure disorder How is presenting disease/condition affected by chronic disease/condition?: exacerbated by Evaluation data The following diagnostics were reviewed and interpreted by me:: lab results and radiology exam(s) Lab and/or radiology exams considered but not ordered:: None Interpretation Summary: I personally reviewed and interpreted the x-ray of this patient. There is no acute abnormalities found, no infiltrates no pneumothorax no hemothorax normal chest x-ray. Review of other structures was without significant abnormal findings also. I additionally reviewed the radiologist report and agree with the interpretation. Medications / Prescriptions Medications or Prescriptions considered but not ordered:: None Medication administrations:: Medication Administration History Discontinued Medications Lactated Ringer's (Lactated Ringers) 1,000 mls @ 999 mls/hr IV .Q1H1M ONE Stop: 08/03/25 12:18 Last Admin: 08/03/25 12:41 Dose: 999 mls/hr Documented By: DO Levetiracetam (Levetiracetam Inj 100 Mg/Ml Vial 5ml) 1,000 mg IVP X1 ONE Stop: 08/03/25 11:18 Last Admin: 08/03/25 12:41 Dose: 1,000 mg Documented By: DO IV fluids, Keppra Consultations Consultation(s) initiated? (list below): No Diagnosis Seizure Differential Diagnosis: intractable seizure disorder, focal seizure and generalized seizure Most likely diagnosis given after review of the tests above:: Breakthrough seizure, poor medication compliance Admission Indicated Admission indicated?: not indicated Admission Request Was there a request for admission?: No Disposition Plan Disposition Plan: Discharge Discharge Attestation Discharge Attestation: The patient and all family members were given an opportunity to ask questions and understood the discharge instructions. Discharge instructions specifically effects, indications for sooner follow up or return to the emergency department, and the expected course of current diagnosis. Patient condition: Stable Discharge Plan Plan Patient Disposition: HOME (Self Care) Discharge Disposition comment: Stable Prescriptions/Referrals Prescriptions/Med Rec: New levetiracetam [Keppra] 500 mg tablet 500 mg PO BID Qty: 60 0RF No Action amoxicillin-pot clavulanate [Augmentin] 500-125 mg tablet 1 tab PO BID Qty: 30 0RF ibuprofen 600 mg tablet 600 mg PO TID PRN (Reason: pain) Qty: 30 0RF levetiracetam 500 mg tablet 500 mg PO TID Qty: 90 0RF levetiracetam [Keppra] 500 mg tablet 500 mg PO Q12H Qty: 10 0RF Referrals: No Primary/Family,Physician [Primary Care Provider] - In 1 week Problem List Clinical Impression: Seizure Patient/Caregiver Discharge Instructions Education Materials: ED Seizure, Recurrent (Adult) Additional Instructions: Thank you for the opportunity for serving you today. You are stable for discharged . You are advised to: Follow-up with your PCP in 1 to 2 days Return to ED for worsening of symptoms Increase oral fluids Take medication as prescribed Print Language: Faroese Stand Alone Forms: Linda Award Info., Patient Portal Info Letter PA/NIKKI Supervising Physician CRISTAL/NIKKI Supervising Physician: MD Levar
[2025-08-03 12:25] LABS: Basophils # (Auto) 0.0 Thou/mm3 (0.0-0.2); Basophils % (Auto) 1 % (0-2.5); Eosinophils # (Auto) 0.0 Thou/mm3 (0.0-0.5); Eosinophils % (Auto) 1 % (0-10); Hematocrit 36.4 % (41.0-53.0); Hemoglobin 12.4 g/dL (13.5-16.0); Immature Granulocytes Auto 0.02 Thou/mm3 (0.00-0.00); Lymphocytes # (Auto) 0.9 Thou/mm3 (1.0-4.8); Lymphocytes % (Auto) 21 % (10-50); Mean Corpuscular HGB Conc 34.1 g/dl (31.0-37.0); Mean Corpuscular Hemoglobin 33.3 pg (25.0-35.0); Mean Corpuscular Volume 98 fL (80-100); Monocytes # (Auto) 0.3 Thou/mm3 (0.0-0.8); Monocytes % (Auto) 8 % (0-12); Neutrophils # (Auto) 2.9 Thou/mm3 (1.8-7.7); Neutrophils % (Auto) 70 % (37-80); Nucleated Red Blood Cell # 0.00 Thou/mm3 (0.00-0.00); Nucleated Red Blood Cell % 0 /100 WBC (0); Platelet Count 115 Thou/mm3 (140-440); RDW Standard Deviation 47.8 fL (35.1-43.9); Red Blood Count 3.72 Miln/mm3 (4.50-5.90); White Blood Count 4.1 Thou/mm3 (3.8-10.6)
[2025-08-03 12:35] LABS: Partial Thromboplastin Time 21.7 Seconds (22.0-36.0)
[2025-08-03] MEDS: RINGERS LACTATED 1000 ML 1,000 ML 999 ML IV (12:41)
[2025-08-03] MEDS: levETIRAcetam INJ 100 MG/ML VIAL 5ML 1000 MG IVP (12:41)
[2025-08-03 12:42] LABS: Alanine Aminotransferase 109 U/L (10-49); Albumin, Serum 3.5 gm/dL (3.4-4.8); Albumin/Globulin Ratio 0.9 (1.2-2.2); Alkaline Phosphatase 186 U/L (46-116); Anion Gap 9 (7-16); Aspartate Amino Transferase 150 U/L (0-34); BUN/Creatinine Ratio 26 Ratio (12-20); Bilirubin,Total 0.6 mg/dL (0.3-1.2); Blood Urea Nitrogen 18 mg/dL (9-23); Calcium 8.8 mg/dL (8.3-10.6); Calcium (Corrected) 9.2 mg/dL (8.5-10.1); Carbon Dioxide 28.4 mMol/L (20.0-31.0); Chloride 107 mMol/L (98-107); Creatinine (Component) 0.7 mg/dL (0.6-1.3); Estimated Creatinine Clearance 97.5 mL/min (>60); Globulin 3.7 gm/dL (2.3-3.5); Glucose 91 mg/dL (74-106); Osmolality,Calculated 288 (275-295); Potassium 4.1 mMol/L (3.4-5.1); Sodium 144 mMol/L (136-145); Total Protein 7.2 gm/dL (5.7-8.2); eGFR > 60 See Note
[2025-08-03 12:48] VITALS: BP 121/67; PULSE 60; RESP 18; O2SAT 99
[2025-08-03 14:44] LABS: Collection Type, Urine Clean Catch; Squamous Epithelial Cell,Urine 0 /hpf (0-5)
[2025-08-03 15:04] LABS: Bilirubin,Urine Negative (Negative); Blood,Urine Negative (Negative); Clarity,Urine Clear (Clear/Hazy); Color,Urine Yellow (Lt Yel-Yel); Culture Indicated,Urine Not Indicated; Glucose, Urine Negative (Negative); Hyaline Casts,Urine < 1 /hpf (0-1); Ketones,Urine Negative (Negative); Leukocyte Esterase,Urine Negative (Negative); Nitrite,Urine Negative (Negative); PH,Urine 6.5 (5.0-7.0); Protein,Urine Trace (Neg - Trace); RBC,Urine 3 /hpf (0-3); Specific Gravity,Urine 1.029 (1.001-1.035); Urobilinogen,Urine 6.0 mg/dL (0.0-1.0); WBC,Urine 1 /hpf (0-5)
[2025-08-03 15:46] LABS: Sperm,Urine Present
[2025-08-03 16:49] VITALS: BP 121/67; PULSE 64; RESP 18; TEMP 37.2; O2SAT 98
== END 2025-08-03 17:20 | disposition home or self-care (01) ==
PROVIDERS: Nurse Practitioner Family; Emergency Provider Emergency Medicine
DX: R56.9 Unspecified convulsions (principal)
CPT/HCPCS: 36415; 71045; 80053; 81001; 85025; 85730; 96374; 99283; J1953; J7120

== ENCOUNTER 2025-08-30 09:17 | Emergency (ER) | payer MEDICAID, SELFPAY ==
[2025-08-30 09:18] VITALS: BP 169/88; PULSE 63; RESP 18; TEMP 36.6; O2SAT 100; BMI 20.7
[2025-08-30 09:24] VITALS: PULSE 63; RESP 20
--- NOTE | 2025-08-30 09:29 | EKG_ITS ---
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
--- NOTE | 2025-08-30 09:30 | EDNOTE_ITS ---
<Statement entered by Maryanne Zaragoza MD - 08/31/25 16:15> I, Maryanne Zaragoza MD, have reviewed the history, exam, and assessment of the patient. I have evaluated the patient independently and agree with the plan of care documented by [ ]. All diagnostic studies were reviewed and discussed. I confirm the diagnosis as documented by the Resident. I was present during the Medical Decision Making for this patient. The patient's plan of care was created between myself and the Resident and consistent with our discussion of the patient's case. ED Seizures RME/HPI General Chief Complaint: Seizure Stated Complaint: seizure Time Seen by Provider: 08/30/25 09:20 Arrival date/time: 08/30/25 09:17 RME / HPI RME / HPI Narrative: Patient is a year old male with a past medical history of seizures on keppra 500 mg BID and history of polystubstance use disorder who presented to the emergency room via EMS with a chief complain tonic-clonic seizure duration of 2 minutes per EMS. Patient is not adherent to medication as states his medication gets stolen and complicated by history of substance use disorder. Recent ER visit on 08/03/2025 for similar chief complain. CMP CBC lactic acid utoxi and UA Home medication of keppra resumed. Related Data Previous Rx's ?Medication ?Instructions ?Recorded ibuprofen 600 mg tablet 600 mg PO TID PRN pain #30 t abs 05/18/25 levetiracetam 500 mg tablet 500 mg PO BID Seizure 1 m onth #60 08/30/25 tabs Allergies Allergy/AdvReac Type Severity Reaction Status Date / Time No Known Allergies Allergy Verified 08/03/25 11:13 Review of Systems Review of Systems Narrative Review of Systems: General appearance: NO weight change, NO fatigue, NO weakness, NO fever, NO chills, NO night sweats, No cough Skin: NO rash, NO itching, NO sores, NO moles HEENT: NO Trauma, NO nausea, NO vomiting, NO visual changes, NO blurry vision, NO double vision, NO tinnitus, NO vertigo, NO ear discharge, NO rhinorrhea, NO stuffiness, NO sneezing, NO allergy, NO epistaxis. NO Hoarseness, NO sore throat, NO swollen neck. Cardiac: NO Palpitations, NO dyspnea on exertion, NO orthopnea, NO paroxysmal nocturnal dyspnea, NO edema Respiratory: NO Shortness of Breath, NO Wheezing, NO Cough, NO Sputum, NO hemoptysis GI:NO appetite, NO nausea, NO vomiting, NO dysphagia, NO changes in bowel frequency, NO stool color, NO diarrhea, NO constipation, NO hemetemesis, NO hemorrhoids, NO melena, NO hematechezia, NO abdominal pain, NO jaundice Renal: NO frequency, NO hesitancy, NO urgency, NO hematuria, NO nocturia, NO incontinence MSK: NO muscle weakness, NO gout, NO arthritis, NO muscle stiffness Neuro: NO headaches, NO tremors, NO weakness, NO paralysis, Yes seizures, NO loss of consciousness, NO numbness. Hem: NO anemia, NO easy bruising/bleeding, NO petechiae, NO purpura Endo: NO heat/cold intolerance, NO excessive sweating, NO polyuria, NO polydipsia, NO polyphagia, NO thyroid problems, NO diabetes Pysch: NO mood, NO anxiety, NO depression ED Exam Narrative Physical exam: General Appearance: Alert & Oriented X3, well-nourished male who is lying in bed in no acute distress HEENT: Skull symmetrical and atraumatic. Conjunctivae pin and moist. Pupils equal, round, reactive to light and accommodation (PERRL). External ear without lesion or discharge. Straight, nares patient, mucosa pink, no discharge. Cardio: Normal Rate and Rhythm with S1 and S2 heart sounds. No murmurs or extra heart sounds auscultated. No bruits on carotid auscultation. No peripheral edema or cyanosis. Lungs: Symmetric with good expansion. Chest and back non-tender. Breath sounds vesicular without crackles, wheezing or rhonchi Abdomen: Non-tender, Non-distended, Normal Reactive Bowel Sounds Neuro: Alert, cooperative, oriented to person, place, and time. Speech clear. CN grossly intact. Upper motor strength 5/5 and Lower motor strength 5/5. Sensation intact. Course Quality Measures none Orders Category Date Time Status Aspiration precautions ONCE Care 08/30/25 09:28 Completed Bedside Blood Glucose NOW Care 08/30/25 09:30 Completed Continuous Pulse Oximetry NOW Care 08/30/25 09:29 Completed Seizure precautions NOW Care 08/30/25 09:28 Completed Vital Signs, Non-Routine Q4H Care 08/30/25 09:30 Ordered Vital Signs, Non-Routine Q4H Care 08/30/25 13:30 Ordered XR chest 1V portable Routine Exams 08/30/25 10:12 Completed Alcohol, Urine Stat Lab 08/30/25 11:04 Completed CBC Stat Lab 08/30/25 10:43 Completed CMP [Comprehensive Metabolic Panel] Stat Lab 08/30/25 09:40 Completed Creatine Kinase Stat Lab 08/30/25 09:40 Completed Drug Screen,Urine Stat Lab 08/30/25 11:04 Completed Lactic Acid [Lactate (Lactic Acid)] Routine Lab 08/30/25 13:05 Completed Lactic Acid [Lactate (Lactic Acid)] Stat Lab 08/30/25 09:40 Completed Mag [Magnesium] Stat Lab 08/30/25 09:40 Completed Phosphorous Stat Lab 08/30/25 09:40 Completed Troponin I Stat Lab 08/30/25 09:40 Completed LORazepam [Ativan Inj] Med 08/30/25 09:28 Discontinued 4 mg IVP X1 PRN Ringers Lactated 1000 ml [Lactated Ringers] 1,000 ml Med 08/30/25 10:13 Discontinued IV 999 mls/hr hydrALAZINE INJ [Apresoline Inj] Med 08/30/25 10:13 Discontinued 10 mg IVP X1 PRN levETIRAcetam INJ [Keppra Inj] Med 08/30/25 10:35 Discontinued 500 mg IVP Q12HR EKG (RT) Stat RT 08/30/25 09:29 Draft Vital Signs Vital signs: Vital Signs Temperature 97.9 F 08/30/25 09:18 Pulse Rate 63 08/30/25 09:18 Respiratory Rate 18 08/30/25 09:18 Blood Pressure 169/88 H 08/30/25 09:18 Pulse Oximetry (%) 100 08/30/25 09:18 Oxygen Delivery Method Nasal Cannula 08/30/25 09:18 Oxygen Flow Rate 6 08/30/25 09:18 Seizure Patient data External records reviewed:: [facility] previous records Clinical information provided by:: patient and EMS Social determinants that could affect healthcare access:: substance use (Meth & THC ) Patient has the following chronic illnesses:: Seizure & Poly-substance Use Disorder How is presenting disease/condition affected by chronic disease/condition?: exacerbated by (polysubstance use disorder ) Evaluation data The following diagnostics were reviewed and interpreted by me:: lab results, radiology exam(s) and EKG tracing(s) Lab and/or radiology exams considered but not ordered:: None Interpretation Summary: Concern for poly-substance lowering threshold of seizures and complicated by medication non-compliance as evident by lactic acidosis. NO ST elevation and negative troponin. Medications / Prescriptions Medications or Prescriptions considered but not ordered:: none Medication administrations:: Medication Administration History Discontinued Medications Hydralazine HCl (Hydralazine Inj 20 Mg/Ml Vial) 10 mg IVP X1 PRN PRN Reason: Hypertension Stop: 09/29/25 10:12 Lactated Ringer's (Lactated Ringers) 1,000 mls @ 999 mls/hr IV .Q1H1M ONE Stop: 08/30/25 11:13 Last Infusion: 08/30/25 12:47 Dose: Infused Documented By: Admin: 08/30/25 11:04 Dose: 999 mls/hr Documented By: VG Levetiracetam (Levetiracetam Inj 100 Mg/Ml Vial 5ml) 500 mg IVP Q12HR ANA Stop: 09/29/25 10:34 Last Admin: 08/30/25 11:03 Dose: 500 mg Documented By: VG Lorazepam (Lorazepam 2 Mg/Ml Vial) 4 mg IVP X1 PRN PRN Reason: Seizure Stop: 09/04/25 09:27 see as above Consultations Consultation(s) initiated? (list below): No Diagnosis Seizure Differential Diagnosis: intractable seizure disorder, generalized seizure and other (substance use disorder, withdrawal ) Most likely diagnosis given after review of the tests above:: Seizure exacerbated by poly-substance use disorder as utox positive for THC/Meth and medication non-compliance with elevated lactic acid. - The patient's plan was discussed with attending Dr.. Mila Sharma MD PGY2 Internal Medicine Admission Indicated Admission indicated?: not indicated Admission Request Was there a request for admission?: No Disposition Plan Disposition Plan: Discharge Discharge Attestation Discharge Attestation: The patient and all family members were given an opportunity to ask questions and understood the discharge instructions. Discharge instructions specifically effects, indications for sooner follow up or return to the emergency department, and the expected course of current diagnosis. Patient condition: Stable Discharge Plan Plan Patient Disposition: HOME (Self Care) Patient condition on transfer: Stable Health Concerns: Instructions: -Please continue to take you medication, including your Keppra 500 mg twice daily as this medication helps prevent seizures -Please follow up with your primary care provider within one week of discharge -If your symptoms worsen,please seek immediate medical attention and return to your nearest emergency room -If you do not have a primary care provider, [facility] [address], [place] [address], Prescriptions/Referrals Prescriptions/Med Rec: New levetiracetam 500 mg tablet 500 mg PO BID 30 Days Qty: 60 0RF Continued ibuprofen 600 mg tablet 600 mg PO TID PRN (Reason: pain) Qty: 30 0RF Discontinued amoxicillin-pot clavulanate [Augmentin] 500-125 mg tablet 1 tab PO BID Qty: 30 0RF levetiracetam 500 mg tablet 500 mg PO TID Qty: 90 0RF levetiracetam [Keppra] 500 mg tablet 500 mg PO Q12H Qty: 10 0RF levetiracetam [Keppra] 500 mg tablet 500 mg PO BID Qty: 60 0RF Referrals: [facility] [Outside] - In 1 week No Primary/Family,Physician [Primary Care Provider] - In 1 week Problem List Clinical Impression: Seizure disorder Patient/Caregiver Discharge Instructions Education Materials: ED Seizure, Recurrent (Adult) Print Language: [place] Stand Alone Forms: Linda Award Info., Patient Portal Info Letter
[2025-08-30 10:01] LABS: Lactate (Lactic Acid) 4.8 mMol/L (0.4-2.0)
--- NOTE | 2025-08-30 10:12 | XR_ITS ---
CLINICAL INDICATION: rule out aspiration pnemonia TECHNIQUE: XR chest 1V portable Study date and time: 08/30/2025, 10:52 a.m. COMPARISON: Chest radiograph 08/03/2025 FINDINGS: The cardiomediastinal silhouette is within normal limits. No airspace opacities suggestive of pneumonia. No mass detected. No pleural effusion or pneumothorax. No acute osseous abnormality detected. Remote left clavicle ORIF reidentified. Multiple contiguous chronic healed left-sided rib fractures redemonstrated. Bilateral glenohumeral joint osteoarthrosis, right side to the left. Endplate marginal osteophytes in the lower thoracic spine, right greater the left. IMPRESSION: No radiographic evidence for acute cardiopulmonary abnormality. No evidence for aspiration pneumonia as questioned. No significant interval change since the comparison study. - This report was generated utilizing speech recognition software. -
[2025-08-30 10:25] LABS: Alanine Aminotransferase 91 U/L (10-49); Albumin, Serum 4.0 gm/dL (3.4-4.8); Albumin/Globulin Ratio 0.9 (1.2-2.2); Alkaline Phosphatase 136 U/L (46-116); Anion Gap 9 (7-16); Aspartate Amino Transferase 158 U/L (0-34); BUN/Creatinine Ratio 17 Ratio (12-20); Bilirubin,Total 1.0 mg/dL (0.3-1.2); Blood Urea Nitrogen 12 mg/dL (9-23); Calcium 9.1 mg/dL (8.3-10.6); Calcium (Corrected) 9.1 mg/dL (8.5-10.1); Carbon Dioxide 22.4 mMol/L (20.0-31.0); Chloride 105 mMol/L (98-107); Creatine Kinase 267 U/L (34-171); Creatinine (Component) 0.7 mg/dL (0.6-1.3); Estimated Creatinine Clearance 97.0 mL/min (>60); Globulin 4.4 gm/dL (2.3-3.5); Glucose 98 mg/dL (74-106); Magnesium 1.9 mg/dL (1.6-2.6); Osmolality,Calculated 271 (275-295); Phosphorous 3.9 mg/dL (2.4-5.1); Potassium 4.2 mMol/L (3.4-5.1); Sodium 136 mMol/L (136-145); Total Protein 8.4 gm/dL (5.7-8.2); Troponin I < 0.020 ng/mL (0.0-0.045); eGFR > 60 See Note
[2025-08-30 10:49] LABS: Basophils # (Auto) 0.0 Thou/mm3 (0.0-0.2); Basophils % (Auto) 1 % (0-2.5); Eosinophils # (Auto) 0.0 Thou/mm3 (0.0-0.5); Eosinophils % (Auto) 0 % (0-10); Hematocrit 39.0 % (41.0-53.0); Hemoglobin 13.5 g/dL (13.5-16.0); Immature Granulocytes Auto 0.01 Thou/mm3 (0.00-0.00); Lymphocytes # (Auto) 1.0 Thou/mm3 (1.0-4.8); Lymphocytes % (Auto) 20 % (10-50); Mean Corpuscular HGB Conc 34.6 g/dl (31.0-37.0); Mean Corpuscular Hemoglobin 33.3 pg (25.0-35.0); Mean Corpuscular Volume 96 fL (80-100); Monocytes # (Auto) 0.4 Thou/mm3 (0.0-0.8); Monocytes % (Auto) 9 % (0-12); Neutrophils # (Auto) 3.4 Thou/mm3 (1.8-7.7); Neutrophils % (Auto) 70 % (37-80); Nucleated Red Blood Cell # 0.00 Thou/mm3 (0.00-0.00); Nucleated Red Blood Cell % 0 /100 WBC (0); Platelet Count 182 Thou/mm3 (140-440); RDW Standard Deviation 46.8 fL (35.1-43.9); Red Blood Count 4.05 Miln/mm3 (4.50-5.90); White Blood Count 4.9 Thou/mm3 (3.8-10.6)
[2025-08-30] MEDS: levETIRAcetam INJ 100 MG/ML VIAL 5ML 500 MG IVP (11:03)
[2025-08-30] MEDS: RINGERS LACTATED 1000 ML 1,000 ML 999 ML IV (11:04)
[2025-08-30 12:13] LABS: Amphetamine/Methamp Scrn,U Positive (Negative); Barbiturate Screen,Urine Negative (Negative); Benzodiazepines Screen,Urine Negative (Negative); Benzoylecgonine Screen, Ur Negative (Negative); Opiate Screen,Urine Negative (Negative); THC Screen,Urine Positive (Negative)
[2025-08-30 12:18] VITALS: BP 158/76; PULSE 50; RESP 12; TEMP 36.7; O2SAT 97
[2025-08-30 12:42] LABS: Alcohol, Urine Negative (Negative); Fentanyl Screen,Urine Negative (Negative)
[2025-08-30 12:57] LABS: Reflex Lactate? Y
[2025-08-30 13:13] LABS: Lactate (Lactic Acid) 2.0 mMol/L (0.4-2.0)
[2025-08-30 16:14] VITALS: BP 128/72; PULSE 56; RESP 17; O2SAT 97
== END 2025-08-30 16:15 | disposition home or self-care (01) ==
PROVIDERS: Emergency Provider Emergency Medicine
DX: G40.409 Other generalized epilepsy and epileptic syndromes, not intractable, without status epilepticus (principal)
CPT/HCPCS: 36415; 71045; 80053; 80307; 80320; 82550; 83605; 83735; 84100; 84484; 85025; 93005; 96361; 96374; 99284; J1953; J7120; G0480

== ENCOUNTER 2025-09-14 08:18 | Emergency (ER) | payer MEDICAID, SELFPAY ==
[2025-09-14 08:20] VITALS: PULSE 96; RESP 20; O2SAT 99
[2025-09-14 08:31] VITALS: BP 156/91; PULSE 80; RESP 20; TEMP 36.6; O2SAT 95
--- NOTE | 2025-09-14 08:32 | EKG_ITS ---
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
--- NOTE | 2025-09-14 08:34 | EDNOTE_ITS ---
<Statement entered by Francine Dyer MD - 09/14/25 17:45> I, Francine Dyer MD, have reviewed the history, exam, and assessment of the patient. I have evaluated the patient independently and agree with the plan of care documented by Dr. Sharma. All diagnostic studies were reviewed and discussed. I confirm the diagnosis as documented by the Resident. I was present during the Medical Decision Making for this patient. The patient's plan of care was created between myself and the Resident and consistent with our discussion of the patient's case.As co-signing physician, I was present and available for consult prn. I concur with the plan and care as documented by the midlevel provider. ED Seizures RME/HPI General Chief Complaint: Seizure Stated Complaint: SEIZURE Time Seen by Provider: 09/14/25 08:23 Arrival date/time: 09/14/25 08:18 RME / HPI RME / HPI Narrative: CC: witnessed seizure in group home Patient is a year old male with a past medical history of seizures on keppra 500 mg BID and history of polystubstance use disorder, previous tested positive for meth and THC who presented to the emergency room via EMS with a chief complain of witnessed seizure at the homeless group home and was seen to be shaking bilaterally, tongue bitting, and in a confused stated. Patient has not picked up any of his medication that he was discharge on previously and has been non- adherent. Continues to use illicit substances. Related Data Previous Rx's ?Medication ?Instructions ?Recorded ibuprofen 600 mg tablet 600 mg PO TID PRN pain #30 t abs 05/18/25 levetiracetam 500 mg tablet 500 mg PO BID Seizure 1 m onth #60 08/30/25 tabs Allergies Allergy/AdvReac Type Severity Reaction Status Date / Time No Known Allergies Allergy Verified 08/03/25 11:13 Review of Systems Review of Systems Narrative Review of Systems: General appearance: NO weight change, NO fatigue, NO weakness, NO fever, NO chills, NO night sweats, No cough Skin: NO rash, NO itching, NO sores, NO moles HEENT: NO Trauma, NO nausea, NO vomiting, NO visual changes, NO blurry vision, NO double vision, NO tinnitus, NO vertigo, NO ear discharge, NO rhinorrhea, NO stuffiness, NO sneezing, NO allergy, NO epistaxis. NO Hoarseness, NO sore throat, NO swollen neck. Cardiac: NO Palpitations, NO dyspnea on exertion, NO orthopnea, NO paroxysmal nocturnal dyspnea, NO edema Respiratory: NO Shortness of Breath, NO Wheezing, NO Cough, NO Sputum, NO hemoptysis GI:NO appetite, NO nausea, NO vomiting, NO dysphagia, NO changes in bowel frequency, NO stool color, NO diarrhea, NO constipation, NO hemetemesis, NO hemorrhoids, NO melena, NO hematechezia, NO abdominal pain, NO jaundice Renal: NO frequency, NO hesitancy, NO urgency, NO hematuria, NO nocturia, NO incontinence MSK: NO muscle weakness, NO gout, NO arthritis, NO muscle stiffness Neuro: NO headaches, NO tremors, NO weakness, NO paralysis, Yes seizures, NO loss of consciousness, NO numbness. Hem: NO anemia, NO easy bruising/bleeding, NO petechiae, NO purpura Endo: NO heat/cold intolerance, NO excessive sweating, NO polyuria, NO polydipsia, NO polyphagia, NO thyroid problems, NO diabetes Pysch: NO mood, NO anxiety, NO depression ED Exam Narrative Physical exam: General Appearance: Alert & Oriented X3, well-nourished male who is lying in bed in no acute distress HEENT: Skull symmetrical and atraumatic. Conjunctivae pale pink and moist. Pupils equal, round, reactive to light and accommodation (PERRL). External ear without lesion or discharge. Straight, nares patient, mucosa pink, no discharge. Cardio: Normal Rate and Rhythm with S1 and S2 heart sounds. No murmurs or extra heart sounds auscultated. No bruits on carotid auscultation. No peripheral edema or cyanosis. Lungs: Symmetric with good expansion. Chest and back non-tender. Breath sounds vesicular without crackles, wheezing or rhonchi Abdomen: Non-tender, Non-distended, Normal Reactive Bowel Sounds Neuro: Alert, Yes cooperative, Yes oriented to person, Yes place, and Month. Speech clear. CN grossly intact. Upper motor strength 5/5 and Lower motor stren gth 5/5. Sensation intact. Course Quality Measures none Orders Category Date Time Status Blood [Bedside Blood Glucose] NOW Care 09/14/25 08:31 Active EKG (ED ONLY) *Do not use* NOW Care 09/14/25 08:32 Active IV [Insert IV] NOW Care 09/14/25 08:33 Active Miscellaneous Nursing Order X1 Care 09/14/25 11:10 Active Nurse Swallow Screen X1 Care 09/14/25 11:10 Active EKG (ED Only) Stat Exams 09/14/25 08:32 Draft Alcohol, Urine Stat Lab 09/14/25 10:00 Completed CBC Stat Lab 09/14/25 08:35 Completed CMP [Comprehensive Metabolic Panel] Stat Lab 09/14/25 08:35 Completed Creatine Kinase Stat Lab 09/14/25 08:35 Completed Drug Screen,Urine Stat Lab 09/14/25 10:00 Completed Lactic Acid [Lactate (Lactic Acid)] Routine Lab 09/14/25 11:30 Completed Lactic Acid [Lactate (Lactic Acid)] Stat Lab 09/14/25 08:35 Completed Mag [Magnesium] Stat Lab 09/14/25 08:35 Completed Phosphorous Stat Lab 09/14/25 08:35 Completed Troponin I Stat Lab 09/14/25 08:35 Completed Urinalysis, C/S if Indicated Stat Lab 09/14/25 10:00 Completed Ringers Lactated 1000 ml [Lactated Ringers] 1,000 ml Med 09/14/25 08:33 Discontinued IV 999 mls/hr levETIRAcetam INJ [Keppra Inj] Med 09/14/25 08:32 Discontinued 1,000 mg IVP X1 ONE Vital Signs Vital signs: Vital Signs Temperature 97.8 F 09/14/25 08:31 Pulse Rate 80 09/14/25 08:31 Respiratory Rate 20 09/14/25 08:31 Blood Pressure 156/91 H 09/14/25 08:31 Pulse Oximetry (%) 95 09/14/25 08:31 Oxygen Delivery Method Room Air 09/14/25 08:31 Seizure Patient data External records reviewed:: [facility] previous records Clinical information provided by:: patient Social determinants that could affect healthcare access:: substance use Patient has the following chronic illnesses:: Hx of seizures and substance use disorder How is presenting disease/condition affected by chronic disease/condition?: exacerbated by (substance use disorder and hx of seizures ) Evaluation data The following diagnostics were reviewed and interpreted by me:: lab results and radiology exam(s) Lab and/or radiology exams considered but not ordered:: NOne Interpretation Summary: Patient is a 65-year-old male with a past medical history of seizure disorders and medication nonadherence with a substance use disorder including THC methamphetamines. Who presented to the emergency room with a breakthrough seizure secondary to medication noncompliance and substance use disorder. No leukocytosis noted on CBC CMP sodium within normal limits and potassium within normal limits. Lactic acid 3.9 down trended to 1.3 after 1 L bolus. Edwards saminitis AST 192 and ALT 135. Troponin negative UA negative. U tox positive for fentanyl, methamphetamine, and THC. #Breakthrough seizures #Medication nonadherence. #Substance Use Disorder - The patient's plan was discussed with attending Dr. Gomez Sharma MD PGY2 Internal Medicine Medications / Prescriptions Medications or Prescriptions considered but not ordered:: None Medication administrations:: Medication Administration History Discontinued Medications Lactated Ringer's (Lactated Ringers) 1,000 mls @ 999 mls/hr IV .Q1H1M ONE Stop: 09/14/25 09:33 Last Infusion: 09/14/25 09:46 Dose: Infused Documented By: Admin: 09/14/25 08:41 Dose: 999 mls/hr Documented By: MG Levetiracetam (Levetiracetam Inj 100 Mg/Ml Vial 5ml) 1,000 mg IVP X1 ONE Stop: 09/14/25 08:33 Last Admin: 09/14/25 08:41 Dose: 1,000 mg Documented By: MG same as above Consultations Consultation(s) initiated? (list below): No Diagnosis Seizure Differential Diagnosis: generalized seizure, status epilepticus and other (breakthrough seizure ) Most likely diagnosis given after review of the tests above:: Patient is a 65-year-old male with a past medical history of seizure disorders and medication nonadherence with a substance use disorder including THC methamph etamines. Who presented to the emergency room with a breakthrough seizure secondary to medication noncompliance and substance use disorder. No leukocytosis noted on CBC CMP sodium within normal limits and potassium within normal limits. Lactic acid 3.9 down trended to 1.3 after 1 L bolus. Transaminitis AST 192 and ALT 135. Troponin negative UA negative. U tox positive for fentanyl, methamphetamine, and THC. #Breakthrough seizures #Medication nonadherence. #Substance Use Disorder - The patient's plan was discussed with attending Dr. Gomze Sharma MD PGY2 Internal Medicine Admission Indicated Admission indicated?: not indicated Admission Request Was there a request for admission?: No Disposition Plan Disposition Plan: Discharge Discharge Attestation Discharge Attestation: The patient and all family members were given an opportunity to ask questions and understood the discharge instructions. Discharge instructions specifically effects, indications for sooner follow up or return to the emergency department, and the expected course of current diagnosis. Patient condition: Stable Discharge Plan Plan Patient Disposition: HOME (Self Care) Patient condition on transfer: Stable Health Concerns: Instructions: -Please continue to take you medication, including your Keppra 500 mg twice daily as this medication helps prevent seizures -PLEASE stop all drug use. -Please follow up with your primary care provider within one week of discharge -If your symptoms worsen,please seek immediate medical attention and return to your nearest emergency room -If you do not have a primary care provider, [facility] [address] [address], [place] [address], Prescriptions/Referrals Prescriptions/Med Rec: Continued ibuprofen 600 mg tablet 600 mg PO TID PRN (Reason: pain) Qty: 30 0RF levetiracetam 500 mg tablet 500 mg PO BID 30 Days Qty: 60 0RF Referrals: No Primary/Family,Physician [Primary Care Provider] - In 1 week Problem List Clinical Impression: Breakthrough seizure, Noncompliance with medication regimen, Substance abuse Patient/Caregiver Discharge Instructions Education Materials: ED Seizure, Recurrent (Adult) Print Language: Greenlandic Stand Alone Forms: Linad Award Info., Patient Portal Info Letter
[2025-09-14] MEDS: RINGERS LACTATED 1000 ML 1,000 ML 999 ML IV (08:41)
[2025-09-14] MEDS: levETIRAcetam INJ 100 MG/ML VIAL 5ML 1000 MG IVP (08:41)
[2025-09-14 08:46] LABS: Lactate (Lactic Acid) 3.9 mMol/L (0.4-2.0)
[2025-09-14 08:52] LABS: Basophils # (Auto) 0.0 Thou/mm3 (0.0-0.2); Basophils % (Auto) 1 % (0-2.5); Eosinophils # (Auto) 0.0 Thou/mm3 (0.0-0.5); Eosinophils % (Auto) 0 % (0-10); Hematocrit 41.4 % (41.0-53.0); Hemoglobin 13.9 g/dL (13.5-16.0); Immature Granulocytes Auto 0.01 Thou/mm3 (0.00-0.00); Lymphocytes # (Auto) 0.7 Thou/mm3 (1.0-4.8); Lymphocytes % (Auto) 16 % (10-50); Mean Corpuscular HGB Conc 33.6 g/dl (31.0-37.0); Mean Corpuscular Hemoglobin 32.8 pg (25.0-35.0); Mean Corpuscular Volume 98 fL (80-100); Monocytes # (Auto) 0.2 Thou/mm3 (0.0-0.8); Monocytes % (Auto) 5 % (0-12); Neutrophils # (Auto) 3.3 Thou/mm3 (1.8-7.7); Neutrophils % (Auto) 78 % (37-80); Nucleated Red Blood Cell # 0.00 Thou/mm3 (0.00-0.00); Nucleated Red Blood Cell % 0 /100 WBC (0); Platelet Count 153 Thou/mm3 (140-440); RDW Standard Deviation 47.8 fL (35.1-43.9); Red Blood Count 4.24 Miln/mm3 (4.50-5.90); White Blood Count 4.3 Thou/mm3 (3.8-10.6)
[2025-09-14 09:10] LABS: Alanine Aminotransferase 135 U/L (10-49); Albumin, Serum 4.1 gm/dL (3.4-4.8); Albumin/Globulin Ratio 1.1 (1.2-2.2); Alkaline Phosphatase 182 U/L (46-116); Anion Gap 10 (7-16); Aspartate Amino Transferase 192 U/L (0-34); BUN/Creatinine Ratio 23 Ratio (12-20); Bilirubin,Total 0.7 mg/dL (0.3-1.2); Blood Urea Nitrogen 16 mg/dL (9-23); Calcium 8.8 mg/dL (8.3-10.6); Calcium (Corrected) 8.8 mg/dL (8.5-10.1); Carbon Dioxide 25.0 mMol/L (20.0-31.0); Chloride 105 mMol/L (98-107); Creatine Kinase 153 U/L (34-171); Creatinine (Component) 0.7 mg/dL (0.6-1.3); Globulin 3.8 gm/dL (2.3-3.5); Glucose 112 mg/dL (74-106); Magnesium 1.9 mg/dL (1.6-2.6); Osmolality,Calculated 281 (275-295); Phosphorous 3.6 mg/dL (2.4-5.1); Potassium 4.4 mMol/L (3.4-5.1); Sodium 140 mMol/L (136-145); Total Protein 7.9 gm/dL (5.7-8.2); Troponin I < 0.020 ng/mL (0.0-0.045); eGFR > 60 See Note
[2025-09-14 10:09] LABS: Collection Type, Urine Clean Catch
[2025-09-14 10:20] VITALS: BP 143/84; PULSE 62; RESP 17; TEMP 36.6; O2SAT 96
[2025-09-14 10:22] LABS: Bilirubin,Urine Negative (Negative); Blood,Urine Negative (Negative); Clarity,Urine Clear (Clear/Hazy); Color,Urine Lt-Yellow (Lt Yel-Yel); Culture Indicated,Urine Not Indicated; Glucose, Urine Negative (Negative); Hyaline Casts,Urine < 1 /hpf (0-1); Ketones,Urine Negative (Negative); Leukocyte Esterase,Urine Negative (Negative); Nitrite,Urine Negative (Negative); PH,Urine 6.0 (5.0-7.0); Protein,Urine Trace (Neg - Trace); RBC,Urine 2 /hpf (0-3); Specific Gravity,Urine 1.021 (1.001-1.035); Squamous Epithelial Cell,Urine < 1 /hpf (0-5); Urobilinogen,Urine Negative mg/dL (0.0-1.0); WBC,Urine 3 /hpf (0-5)
[2025-09-14 10:24] LABS: Alcohol, Urine Negative (Negative); Amphetamine/Methamp Scrn,U Positive (Negative); Barbiturate Screen,Urine Negative (Negative); Benzodiazepines Screen,Urine Negative (Negative); Benzoylecgonine Screen, Ur Negative (Negative); Fentanyl Screen,Urine Positive (Negative); Opiate Screen,Urine Negative (Negative); THC Screen,Urine Positive (Negative)
[2025-09-14 10:31] LABS: Sperm,Urine Present
[2025-09-14 11:40] LABS: Lactate (Lactic Acid) 1.3 mMol/L (0.4-2.0)
[2025-09-14 11:44] LABS: Reflex Lactate? Y
[2025-09-14 12:00] VITALS: BP 141/83; PULSE 65; RESP 17; TEMP 37.2; O2SAT 97
[2025-09-14 15:00] VITALS: BP 135/84; PULSE 92; RESP 16; TEMP 36.8; O2SAT 98
== END 2025-09-14 15:00 | disposition home or self-care (01) ==
PROVIDERS: Emergency Provider Family Medicine
DX: G40.909 Epilepsy, unspecified, not intractable, without status epilepticus (principal); Z59.01 Sheltered homelessness; F19.10 Other psychoactive substance abuse, uncomplicated; Z91.148 Patient's other noncompliance with medication regimen for other reason
CPT/HCPCS: 36415; 80053; 80307; 80320; 81001; 82550; 83605; 83735; 84100; 84484; 85025; 93005; 96374; 99283; J1953; J7120; G0480

== ENCOUNTER 2025-09-26 09:23 | Emergency (ER) | payer MEDICAID, SELFPAY ==
[2025-09-26 09:26] VITALS: BP 124/72; PULSE 79; RESP 18; TEMP 36.4; O2SAT 98
--- NOTE | 2025-09-26 09:29 | EKG_ITS ---
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
[2025-09-26 09:30] VITALS: PULSE 86; O2SAT 98
[2025-09-26 09:34] VITALS: PULSE 79
[2025-09-26] MEDS: levETIRAcetam INJ 100 MG/ML VIAL 5ML 1000 MG IVP (09:46)
[2025-09-26 10:05] LABS: Basophils # (Auto) 0.0 Thou/mm3 (0.0-0.2); Basophils % (Auto) 1 % (0-2.5); Eosinophils # (Auto) 0.0 Thou/mm3 (0.0-0.5); Eosinophils % (Auto) 0 % (0-10); Hematocrit 37.4 % (41.0-53.0); Hemoglobin 12.8 g/dL (13.5-16.0); Immature Granulocytes Auto 0.01 Thou/mm3 (0.00-0.00); Lymphocytes # (Auto) 1.2 Thou/mm3 (1.0-4.8); Lymphocytes % (Auto) 24 % (10-50); Mean Corpuscular HGB Conc 34.2 g/dl (31.0-37.0); Mean Corpuscular Hemoglobin 33.3 pg (25.0-35.0); Mean Corpuscular Volume 97 fL (80-100); Monocytes # (Auto) 0.5 Thou/mm3 (0.0-0.8); Monocytes % (Auto) 10 % (0-12); Neutrophils # (Auto) 3.3 Thou/mm3 (1.8-7.7); Neutrophils % (Auto) 64 % (37-80); Nucleated Red Blood Cell # 0.00 Thou/mm3 (0.00-0.00); Nucleated Red Blood Cell % 0 /100 WBC (0); Platelet Count 163 Thou/mm3 (140-440); RDW Standard Deviation 47.2 fL (35.1-43.9); Red Blood Count 3.84 Miln/mm3 (4.50-5.90); White Blood Count 5.1 Thou/mm3 (3.8-10.6)
[2025-09-26 10:19] LABS: Alanine Aminotransferase 93 U/L (10-49); Albumin, Serum 3.5 gm/dL (3.4-4.8); Albumin/Globulin Ratio 0.9 (1.2-2.2); Alkaline Phosphatase 148 U/L (46-116); Anion Gap 9 (7-16); Aspartate Amino Transferase 123 U/L (0-34); BUN/Creatinine Ratio 21 Ratio (12-20); Bilirubin,Total 0.8 mg/dL (0.3-1.2); Blood Urea Nitrogen 15 mg/dL (9-23); Calcium 8.9 mg/dL (8.3-10.6); Calcium (Corrected) 9.3 mg/dL (8.5-10.1); Carbon Dioxide 26.4 mMol/L (20.0-31.0); Chloride 106 mMol/L (98-107); Creatinine (Component) 0.7 mg/dL (0.6-1.3); Globulin 3.8 gm/dL (2.3-3.5); Glucose 139 mg/dL (74-106); Osmolality,Calculated 284 (275-295); Potassium 3.7 mMol/L (3.4-5.1); Sodium 141 mMol/L (136-145); Total Protein 7.3 gm/dL (5.7-8.2); eGFR > 60 See Note
[2025-09-26 11:33] LABS: Collection Type, Urine Clean Catch; Squamous Epithelial Cell,Urine 0 /hpf (0-5)
[2025-09-26 11:58] LABS: Bilirubin,Urine Negative (Negative); Blood,Urine Negative (Negative); Clarity,Urine Clear (Clear/Hazy); Color,Urine Yellow (Lt Yel-Yel); Culture Indicated,Urine Not Indicated; Glucose, Urine Negative (Negative); Ketones,Urine Negative (Negative); Leukocyte Esterase,Urine Negative (Negative); Nitrite,Urine Negative (Negative); PH,Urine 6.5 (5.0-7.0); Protein,Urine 1+ (Neg - Trace); RBC,Urine 4 /hpf (0-3); Specific Gravity,Urine 1.027 (1.001-1.035); Urobilinogen,Urine 4.0 mg/dL (0.0-1.0); WBC,Urine 4 /hpf (0-5)
[2025-09-26 12:22] LABS: Sperm,Urine Present
--- NOTE | 2025-09-26 14:23 | PD.EDSEIZ ---
ED Seizures RME/HPI General Chief Complaint: Seizure Stated Complaint: SEIZURE Time Seen by Provider: 09/26/25 09:27 Arrival date/time: 09/26/25 09:23 RME / HPI RME / HPI Narrative: 65 year old male with history of seizures, medication noncompliance, presents to the ED [facility] a [facility] after a witnessed seizure lasting ~ 2-3 minutes. Per medics, on scene patient was a GCS of 14, appeared postictal, and FSBS 110. No medications were administered en route. While in the ED patient has no complaints. Related Data Previous Rx's ?Medication ?Instructions ?Recorded ibuprofen 600 mg tablet 600 mg PO TID PRN pain #30 tabs 05/18/25 levetiracetam 500 mg tablet 500 mg PO BID Seizure 1 month #60 08/30/25 tabs Allergies Allergy/AdvReac Type Severity Reaction Status Date / Time No Known Allergies Allergy Verified 08/03/25 11:13 Review of Systems Review of Systems Systems Reviewed: All systems reviewed, normal except as documented Past Medical History Past Medical History NEUROLOGIC: Positive Neurological Disorders and Seizures CARDIAC: Positive Hypertension PSYCHO/SOCIAL: Positive Recreational Drug Use Family History FAMILY HISTORY: Positive Family Cardiac Disorders Surgical History SURGICAL: Positive Abdominal Surgery Social History SMOKING STATUS: Unknown if ever smoked SECOND HAND EXPOSURE: No SUBSTANCE USE: marijuana and methamphetamine ED Exam Narrative Physical exam: GENERAL APPEARANCE: alert and oriented x 4, well-developed, well-nourished HEENT: Normocephalic, small abrasion to center of forehead; pupils equal, round, reactive to light; EOMI; mucous membranes pink, moist; oropharynx clear NECK: Supple LUNGS: CTABL; no wheezes, no rales, no rhonchi HEART: Regular rate, regular rhythm; normal S1, S2; no murmurs ABDOMEN: non distended; normal BS; soft, no tenderness, no guarding, no rebound; no masses, no organomegaly, no hernia BACK: no CVA tenderness EXTREMITIES: atraumatic; no edema NEUROLOGIC: awake; alert and oriented x4; cranial nerves II-XII grossly intact; no focal sensory or motor deficits PSYCHIATRIC: appropriate mood and affect SKIN: warm, dry, normal color; no rashes Course Quality Measures none Orders Category Date Time Status EKG (ED ONLY) *Do not use* NOW Care 09/26/25 09:29 Completed EKG (ED Only) Stat Exams 09/26/25 09:29 Draft CBC Stat Lab 09/26/25 09:48 Completed CMP [Comprehensive Metabolic Panel] Stat Lab 09/26/25 09:48 Completed Levetiracetam (Keppra)* Stat Lab 09/26/25 09:48 Received UA, C/S IF [Urinalysis, C/S if Indicated] Stat Lab 09/26/25 11:27 Completed levETIRAcetam INJ [Keppra Inj] Med 09/26/25 09:35 Discontinued 1,000 mg IVP X1 ONE Vital Signs Vital signs: Vital Signs Temperature 97.6 F 09/26/25 09:26 Pulse Rate 79 09/26/25 09:26 Respiratory Rate 18 09/26/25 09:26 Blood Pressure 124/72 09/26/25 09:26 Pulse Oximetry (%) 98 09/26/25 09:26 Oxygen Delivery Method Room Air 09/26/25 09:26 Pulse ox is 98% on room air which is adequate. Seizure MDM Narrative MDM Narrative:: Sirisha Cheek am scribing for and in the presence of Dr. Zaragoza. Patient remains clinically stable throughout the emergency department visit without seizure activity. We reviewed all the results, analysis, and treatment plans. Patient is amenable to discharge. Strict return precautions were outlined. Patient data External records reviewed:: [facility] previous records and EMS form Clinical information provided by:: patient and EMS Social determinants that could affect healthcare access:: housing (Homeless ) Patient has the following chronic illnesses:: seizures, medication noncompliance How is presenting disease/condition affected by chronic disease/condition?: exacerbated by Evaluation data The following diagnostics were reviewed and interpreted by me:: lab results Lab and/or radiology exams considered but not ordered:: None Interpretation Summary: CBC is unremarkable CMP remarkable for AST of 123, AL of 93, and alkaline phosphate of 148 though are noted to be chronically elevated. Total bilirubin within normal limits at 0.8. UA is unremarkable Medications / Prescriptions Medications or Prescriptions considered but not ordered:: None Medication administrations:: Medication Administration History Discontinued Medications Levetiracetam (Levetiracetam Inj 100 Mg/Ml Vial 5ml) 1,000 mg IVP X1 ONE Stop: 09/26/25 09:36 Last Admin: 09/26/25 09:46 Dose: 1,000 mg Documented By: EF See above Consultations Consultation(s) initiated? (list below): No Diagnosis Seizure Differential Diagnosis: intractable seizure disorder, focal seizure, generalized seizure and epileptic seizure Most likely diagnosis given after review of the tests above:: Breakthrough Seizure Medication noncompliance Admission Indicated Admission indicated?: not indicated Explain why admission is indicated or not indicated:: With no condition needing emergent intervention, there was no indication for admission. Admission Request Was there a request for admission?: No Disposition Plan Disposition Plan: Discharge Discharge Attestation Discharge Attestation: The patient and all family members were given an opportunity to ask questions and understood the discharge instructions. Discharge instructions specifically effects, indications for sooner follow up or return to the emergency department, and the expected course of current diagnosis. Patient condition: Stable Discharge Plan Plan Patient Disposition: HOME (Self Care) Prescriptions/Referrals Prescriptions/Med Rec: No Action ibuprofen 600 mg tablet 600 mg PO TID PRN (Reason: pain) Qty: 30 0RF levetiracetam 500 mg tablet 500 mg PO BID 30 Days Qty: 60 0RF Referrals: No Primary/Family,Physician [Primary Care Provider] - In 1 week Problem List Clinical Impression: Recurrent seizures, Noncompliance with medication regimen Patient/Caregiver Discharge Instructions Education Materials: ED Seizure, Recurrent (Adult) Print Language: Taiwanese Stand Alone Forms: Linda Award Info., Patient Portal Info Letter
[2025-09-26 14:25] VITALS: BP 111/67; PULSE 72; RESP 18; O2SAT 99
[2025-09-29 07:04] LABS: Levetiracetam (Keppra)* <2.0 mcg/mL (10.0-40.0)
== END 2025-09-26 14:26 | disposition home or self-care (01) ==
PROVIDERS: Emergency Provider Emergency Medicine
DX: R56.9 Unspecified convulsions (principal); I49.3 Ventricular premature depolarization; S00.81XA Abrasion of other part of head, initial encounter; X58.XXXA Exposure to other specified factors, initial encounter; Z91.148 Patient's other noncompliance with medication regimen for other reason; Z59.00 Homelessness unspecified
CPT/HCPCS: 36415; 80053; 80177; 81001; 85025; 93005; 96374; 99283; J1953